=== PATIENT | female | born 1965 | race Caucasian/White ===

== ENCOUNTER 2017-04-12 12:12 | Emergency (ER) | payer OTHER ==
[~2017-04-12] VITALS: Ht 162.6 cm; Wt 130.2 kg
[2017-04-12 12:14] VITALS: TEMP 36.7; Ht 162.6 cm; Wt 130.2 kg
--- NOTE | 2017-04-12 12:56 | EMERGENCY ROOM VISIT NOTE ---
History Report prepared by Raisa: Nisa Squires Under the Supervision of: Dr. Andres Savage M.D. First contact with patient: 12:47 Chief Complaint: ABDOMINAL PAIN Stated Complaint: SEVERE STOMACH PAIN, PAIN ALL OVER Nursing Triage Summary: Pt. reporting abdominal pain and watery diarrhea with vomiting that started three days ago. Also reporting generalized body aches. Repeatedly saying "this hurts so bad" and moaning. Says pain across upper and lower right abdomen. History of Present Illness The patient is a 52 year old female who presents to the Emergency Room with complaints of worsening right sided severe abdominal pain beginning 3 days prior to arrival. The patient states that the pain radiates around to her back. She is experiencing very watery black diarrhea, urinary frequency, nausea, vomiting and a headache, and chills. The patient noted all over body pain. She states that she has taken Aleve for the pain but it did not alleviate it. She notes that she has been very thirsty and is drinking around 15 bottles of water a day. The patient denies pain like this before. She has a history of pancreatitis and cholecystomy. Source of History: patient Onset: 3 days [employer]SEMBL[employer] FINAL Position: abdomen (right sided) Symptom Intensity: severe Timing: worsening Associated Symptoms: + chills, + headache, + nausea, + vomiting, + back pain , + diarrhea Review of Systems All systems have been listed, reviewed, and are negative other than those previously mentioned. Please see Additional Medical History Sheet. Past Medical & Surgical Surgical Problems: (1) Hx of hysterectomy Family History Cancer Heart disease Social History Smoking Status: Never Smoker Alcohol Use: none Drug Use: none Marital Status: Housing Status: lives with family Occupation Status: employed Current/Historical Medications No Active Prescriptions or Reported Meds Allergies Coded Allergies: No Known Allergies (Unverified , 04/12/17) Physical Exam Vital Signs Date Time Temp Pulse Resp B/P (MAP) Pulse Ox O2 Delivery O2 Flow Rate FiO2 04/12/17 14:01 90 15 133/79 91 Room Air 04/12/17 13:14 89 18 110/75 99 Room Air 04/12/17 12:14 36.7 99 18 137/95 97 Room Air Physical Exam GENERAL: Patient awake, alert, oriented x 3. Patient follows commands. Patient is in moderate to severe distress, moaning in pain. Patient does not appear toxic. Patient is adequately hydrated and well-nourished. SKIN: No erythema, pallor, cyanosis or rash HEENT: Normal head, pupils equal, reactive to light and accommodation. Ears normal. Oral cavity and posterior pharynx appear normal. Neck: Without adenopathy, no neck vein distention. LUNGS: Clear to auscultation. No wheezes, no rales, no rhonchi. HEART: No murmurs. No gallops. No rubs ABDOMEN: Obese. Tender to epigastric area. No masses, no rebound, no hepatomegaly or splenomegaly. EXTREMITIES: No signs of trauma. No pedal or pretibial edema. No calf or thigh tenderness. NEUROLOGIC: Cranial nerves II-XII within normal limits. No gross motor sensory function deficits. Medical Decision & Procedures Laboratory Results 04/12/17 12:40 Red Blood Count 5.10, Mean Corpuscular Volume 83.7, Mean Corpuscular Hemoglobin 28.8, Mean Corpuscular Hemoglobin Concent 34.4, Mean Platelet Volume 10.1, Neutrophils (%) (Auto) 84.1, Lymphocytes (%) (Auto) 9.4, Monocytes (%) (Auto) 6.3, Eosinophils (%) (Auto) 0.0, Basophils (%) (Auto) 0.0, Neutrophils # (Auto) 9.12, Lymphocytes # (Auto) 1.02, Monocytes # (Auto) 0.68, Eosinophils # (Auto) 0.00, Basophils # (Auto) 0.00 04/12/17 12:40 Test 04/12/17 12:40 04/12/17 12:45 White Blood Count 10.84 K/uL (4.8-10.8) Red Blood Count 5.10 M/uL (4.2-5.4) Hemoglobin 14.7 g/dL (12.0-16.0) Hematocrit 42.7 % (37-47) Mean Corpuscular Volume 83.7 fL (80-100) Mean Corpuscular Hemoglobin 28.8 pg (25-34) Mean Corpuscular Hemoglobin Concent 34.4 g/dl (32-36) Platelet Count 215 K/uL (130-400) Mean Platelet Volume 10.1 fL (7.4-10.4) Neutrophils (%) (Auto) 84.1 % Lymphocytes (%) (Auto) 9.4 % Monocytes (%) (Auto) 6.3 % Eosinophils (%) (Auto) 0.0 % Basophils (%) (Auto) 0.0 % Neutrophils # (Auto) 9.12 K/uL (1.4-6.5) Lymphocytes # (Auto) 1.02 K/uL (1.2-3.4) Monocytes # (Auto) 0.68 K/uL (0.11-0.59) Eosinophils # (Auto) 0.00 K/uL (0-0.5) Basophils # (Auto) 0.00 K/uL (0-0.2) RDW Standard Deviation 41.1 fL (36.4-46.3) RDW Coefficient of Variation 13.4 % (11.5-14.5) Immature Granulocyte % (Auto) 0.2 % Immature Granulocyte # (Auto) 0.02 K/uL (0.00-0.02) Anion Gap 12.0 mmol/L (3-11) Est Creatinine Clear Calc Drug Dose 100.3 ml/min Estimated GFR () 87.6 Estimated GFR (Non- 75.5 BUN/Creatinine Ratio 15.1 (10-20) Calcium Level 9.3 mg/dl (8.5-10.1) Total Bilirubin 0.6 mg/dl (0.2-1) Aspartate Amino Transf (AST/SGOT) 16 U/L (15-37) Alanine Aminotransferase (ALT/SGPT) 24 U/L (12-78) Alkaline Phosphatase 61 U/L (45-117) Total Protein 7.5 gm/dl (6.4-8.2) Albumin 3.5 gm/dl (3.4-5.0) Globulin 4.0 gm/dl (2.5-4.0) Albumin/Globulin Ratio 0.9 (0.9-2) Lipase 103 U/L (73-393) Urine Color DK YELLOW Urine Appearance CLEAR (CLEAR) Urine pH 5.5 (4.5-7.5) Urine Specific [place] 1.021 (1.000-1.030) Urine Protein TRACE (NEG) Urine Glucose (UA) NEG (NEG) Urine Ketones 1+ (NEG) Urine Occult Blood NEG (NEG) Urine Nitrite NEG (NEG) Urine Bilirubin NEG (NEG) Urine Urobilinogen NEG (NEG) Urine Leukocyte Esterase NEG (NEG) Urine WBC (Auto) 1-5 /hpf (0-5) Urine RBC (Auto) 0-4 /hpf (0-4) Urine Hyaline Casts (Auto) 5-10 /lpf (0-5) Urine Epithelial Cells (Auto) >30 /lpf (0-5) Urine Bacteria (Auto) 1+ (NEG) Laboratory results as stated above per my review. Medications Administered Medications (Trade) Dose Ordered Sig/Maryam Route Start Time Stop Time Status Last Admin Dose Admin Morphine Sulfate (MoRPHine SULFATE INJ) 8 mg Q1H PRN IV 04/12/17 13:00 04/26/17 12:59 04/12/17 13:04 8 MG Ondansetron HCl (Zofran Inj) 4 mg Q1HWA PRN IV 04/12/17 13:00 05/12/17 12:59 04/12/17 13:03 4 MG Sodium Chloride 1,000 ml @ 500 mls/hr Q2H ONCE IV 04/12/17 13:00 04/12/17 14:59 04/12/17 13:04 500 MLS/HR ED Course 1248: Past medical records reviewed. The patient was evaluated in room B9. A complete history and physical examination was performed. 1300: Sodium Chloride 1,000 ml @ 500 mls/hr IV, Zofran Inj 4 mg IV, Morphine Sulfate Inj 8 mg IV. 1451: I checked on the patient. She is feeling much better. She is waiting for CT scan. 1500: The patient is signed out to Dr. Ayala at change of shift. Medical Decision Nurses notes reviewed. Medical history sheet reviewed. Differential diagnosis includes but is not limited to: pancreatitis, peptic/gastric ulcer disease, infectious diarrhea, GI bleed. Medication Reconciliation: I attest that I have personally reviewed the patient' s current medication list. The patient is here with severe abdominal pain which she states she's had for 3 days. She also complains of pain over the rest of her body. The patient was given IV pain medication and fluids. Labs were obtained. CT is pending. Case was signed off to Dr. Ayala at 1500. Impression Primary Impression: Nonspecific abdominal pain Scribe Attestation The scribe's documentation has been prepared under my direction and personally reviewed by me in its entirety. I confirm that the note above accurately reflects all work, treatment, procedures, and medical decision making performed by me. Departure Information Dispostion Still a Patient Prescriptions No Active Prescriptions or Reported Meds Referrals Mendel Swain M.D. (PCP) Patient Instructions My [facility]
[2017-04-12] MEDS ORDERED: ONDANSETRON INJ 2 MG/ML 2 ML VIAL IV PRN (13:00)
[2017-04-12] MEDS ORDERED: MoRPHine SULFATE 10 MG/ML CARP/VIAL IV PRN (13:00)
[2017-04-12] MEDS ORDERED: SODIUM CHLORIDE 0.9% 1000ML 1,000 ML IV ONE (13:00)
[2017-04-12 13:09] LABS: COMPLETE YES; HEMATOCRIT 42.7 % (37-47); IG% 0.2 %; LYMPH % 9.4 %; LYMPH ABS # 1.02 K/uL (1.2-3.4); MEAN CELL VOLUME 83.7 fL (80-100); MEAN CORPUSCULAR HEMOGLOBIN 28.8 pg (25-34); MEAN CORPUSCULAR HGB CONC 34.4 g/dl (32-36); MEAN PLATELET VOLUME 10.1 fL (7.4-10.4); MONO % 6.3 %; NEUT % 84.1 %; PLATELET COUNT 215 K/uL (130-400); WHITE BLOOD COUNT 10.84 K/uL (4.8-10.8)
[2017-04-12 13:11] LABS: URINE APPEARANCE CLEAR (CLEAR); URINE BILIRUBIN NEG (NEG); URINE COLOR DK YELLOW; URINE EPITHELIAL CELL AUTO >30 /lpf (0-5); URINE NITRITE NEG (NEG); URINE PH 5.5 (4.5-7.5); URINE SPECIFIC GRAVITY 1.021 (1.000-1.030); UROBILINOGEN NEG (NEG); ZZUR CULT IF INDIC CLEAN CATCH YES
[2017-04-12 13:15] LABS: MANUAL MICROSCOPIC REQUIRED? NO; REVIEW REQ? NO
[2017-04-12 13:16] LABS: BUN/CREATININE RATIO 15.1 (10-20); CALCIUM 9.3 mg/dl (8.5-10.1); CREATININE 0.88 mg/dl (0.60-1.20); POTASSIUM 3.4 mmol/L (3.5-5.1)
[2017-04-12 13:19] LABS: ALB/GLOB RATIO 0.9 (0.9-2)
[2017-04-12] MEDS ORDERED: OPTIRAY 320 IV PRN (13:30)
[2017-04-12] MEDS ORDERED: SODIUM CHLORIDE 0.9% 1000ML 1,000 ML IV STA (14:55)
--- NOTE | 2017-04-12 15:47 | DIAGNOSTIC IMAGING REPORT ---
ABDOMEN AND PELVIS CT WITH IV AND ORAL CONTRAST CT DOSE: 3.53 mGy.cm HISTORY: Pain abd pain hx of pancreatitis TECHNIQUE: Multiaxial CT images of the abdomen and pelvis were performed following the use of intravenous and oral contrast. COMPARISON STUDY: 11/28/2014. FINDINGS: lung bases are clear. Prior cholecystectomy changes are present. Liver spleen and pancreas are unremarkable. Several left renal parapelvic cysts unchanged. Mild atrophy right kidney is present also unchanged. No evidence for obstructive change. Bowel pattern is considered nonobstructive throughout. There is no evidence for abnormal mass or collection. Bladder is midline. There are no contained calcifications. IMPRESSION: No acute process. No change from the prior exam. Prior cholecystectomy and hysterectomy. Electronically signed by: Arik العلي M.D. 04/12/2017 3:46 PM Dictated Date/Time: 04/12/2017 3:43 PM
[2017-04-12] MEDS ORDERED: KETOROLAC TROMETHAMINE 30 MG/ML VIAL IV STA (15:54)
[2017-04-12] MEDS ORDERED: OXYC-57 PO (16:08)
[2017-04-12] MEDS ORDERED: ONDA4TAB10 SL (16:08)
[2017-04-12] MEDS ORDERED: ONDANSETRON HOME PACK 4MG OD TAB PO ONE (16:15)
[2017-04-12] MEDS ORDERED: PERCOCET HOME PACK PO ONE (16:15)
--- NOTE | 2017-04-12 16:17 | EMERGENCY ROOM VISIT NOTE ---
ED Visit Note First contact with patient: 16:03 This is a 53-year-old female who presents emergency department complaining of diffuse abdominal pain. History and physical verified by me. On my abdominal examination the patient has no pain she is complaining of headache therefore she was given Toradol emergency department. The patient is awaiting CAT scan. I received this patient in signout from Dr. Savage. ABDOMEN AND PELVIS CT WITH IV AND ORAL CONTRAST CT DOSE: 2023.53 mGy.cm HISTORY: Pain abd pain hx of pancreatitis TECHNIQUE: Multiaxial CT images of the abdomen and pelvis were performed following the use of intravenous and oral contrast. COMPARISON STUDY: 11/28/2014. FINDINGS: lung bases are clear. Prior cholecystectomy changes are present. Liver spleen and pancreas are unremarkable. Several left renal parapelvic cysts unchanged. Mild atrophy right kidney is present also unchanged. No evidence for obstructive change. Bowel pattern is considered nonobstructive throughout. There is no evidence for abnormal mass or collection. Bladder is midline. There are no contained calcifications. IMPRESSION: No acute process. No change from the prior exam. Prior cholecystectomy and hysterectomy. Electronically signed by: Arik العلي M.D. 04/12/2017 3:46 PM Dictated Date/Time: 04/12/2017 3:43 PM I again reexamined this patient she has a soft nonsurgical abdomen that is nontender. She is going to attempt to try and give a stool sample. I do believe she is well enough to be discharged home for follow-up with her primary care physician. Patient was in agreement with the treatment plan. Problem List Surgical Problems: (1) Hx of hysterectomy Status: Resolved Current/Historical Medications Scheduled Ondasetron Odt (Zofran Odt), 4 MG SL Q6H Scheduled PRN Oxycodone/Acetaminophen 5MG/325MG (Percocet 5MG/325MG), 1-2 TABLETS PO Q6 PRN for Pain Allergies Coded Allergies: No Known Allergies (Unverified , 04/12/17) Vital Signs Date Time Temp Pulse Resp B/P (MAP) Pulse Ox O2 Delivery O2 Flow Rate FiO2 04/12/17 15:10 96 20 118/86 92 Room Air 04/12/17 14:01 90 15 133/79 91 Room Air 04/12/17 13:14 89 18 110/75 99 Room Air 04/12/17 12:14 36.7 99 18 137/95 97 Room Air Laboratory Results 04/12/17 12:40 Red Blood Count 5.10, Mean Corpuscular Volume 83.7, Mean Corpuscular Hemoglobin 28.8, Mean Corpuscular Hemoglobin Concent 34.4, Mean Platelet Volume 10.1, Neutrophils (%) (Auto) 84.1, Lymphocytes (%) (Auto) 9.4, Monocytes (%) (Auto) 6.3, Eosinophils (%) (Auto) 0.0, Basophils (%) (Auto) 0.0, Neutrophils # (Auto) 9.12, Lymphocytes # (Auto) 1.02, Monocytes # (Auto) 0.68, Eosinophils # (Auto) 0.00, Basophils # (Auto) 0.00 04/12/17 12:40 Test 04/12/17 12:40 04/12/17 12:45 White Blood Count 10.84 K/uL (4.8-10.8) Red Blood Count 5.10 M/uL (4.2-5.4) Hemoglobin 14.7 g/dL (12.0-16.0) Hematocrit 42.7 % (37-47) Mean Corpuscular Volume 83.7 fL (80-100) Mean Corpuscular Hemoglobin 28.8 pg (25-34) Mean Corpuscular Hemoglobin Concent 34.4 g/dl (32-36) Platelet Count 215 K/uL (130-400) Mean Platelet Volume 10.1 fL (7.4-10.4) Neutrophils (%) (Auto) 84.1 % Lymphocytes (%) (Auto) 9.4 % Monocytes (%) (Auto) 6.3 % Eosinophils (%) (Auto) 0.0 % Basophils (%) (Auto) 0.0 % Neutrophils # (Auto) 9.12 K/uL (1.4-6.5) Lymphocytes # (Auto) 1.02 K/uL (1.2-3.4) Monocytes # (Auto) 0.68 K/uL (0.11-0.59) Eosinophils # (Auto) 0.00 K/uL (0-0.5) Basophils # (Auto) 0.00 K/uL (0-0.2) RDW Standard Deviation 41.1 fL (36.4-46.3) RDW Coefficient of Variation 13.4 % (11.5-14.5) Immature Granulocyte % (Auto) 0.2 % Immature Granulocyte # (Auto) 0.02 K/uL (0.00-0.02) Anion Gap 12.0 mmol/L (3-11) Est Creatinine Clear Calc Drug Dose 100.3 ml/min Estimated GFR () 87.6 Estimated GFR (Non- 75.5 BUN/Creatinine Ratio 15.1 (10-20) Calcium Level 9.3 mg/dl (8.5-10.1) Total Bilirubin 0.6 mg/dl (0.2-1) Aspartate Amino Transf (AST/SGOT) 16 U/L (15-37) Alanine Aminotransferase (ALT/SGPT) 24 U/L (12-78) Alkaline Phosphatase 61 U/L (45-117) Total Protein 7.5 gm/dl (6.4-8.2) Albumin 3.5 gm/dl (3.4-5.0) Globulin 4.0 gm/dl (2.5-4.0) Albumin/Globulin Ratio 0.9 (0.9-2) Lipase 103 U/L (73-393) Urine Color DK YELLOW Urine Appearance CLEAR (CLEAR) Urine pH 5.5 (4.5-7.5) Urine Specific [place] 1.021 (1.000-1.030) Urine Protein TRACE (NEG) Urine Glucose (UA) NEG (NEG) Urine Ketones 1+ (NEG) Urine Occult Blood NEG (NEG) Urine Nitrite NEG (NEG) Urine Bilirubin NEG (NEG) Urine Urobilinogen NEG (NEG) Urine Leukocyte Esterase NEG (NEG) Urine WBC (Auto) 1-5 /hpf (0-5) Urine RBC (Auto) 0-4 /hpf (0-4) Urine Hyaline Casts (Auto) 5-10 /lpf (0-5) Urine Epithelial Cells (Auto) >30 /lpf (0-5) Urine Bacteria (Auto) 1+ (NEG) Medications Administered Medications (Trade) Dose Ordered Sig/Maryam Route Start Time Stop Time Status Last Admin Dose Admin Morphine Sulfate (MoRPHine SULFATE INJ) 8 mg Q1H PRN IV 04/12/17 13:00 04/26/17 12:59 04/12/17 13:04 8 MG Ondansetron HCl (Zofran Inj) 4 mg Q1HWA PRN IV 04/12/17 13:00 05/12/17 12:59 04/12/17 13:03 4 MG Sodium Chloride 1,000 ml @ 500 mls/hr Q2H ONCE IV 04/12/17 13:00 04/12/17 14:59 DC 04/12/17 13:04 500 MLS/HR Sodium Chloride 1,000 ml @ 500 mls/hr Q2H STAT IV 04/12/17 14:55 04/12/17 16:54 04/12/17 14:55 500 MLS/HR Ketorolac Tromethamine (Toradol Inj) 30 mg NOW STAT IV 04/12/17 15:54 04/12/17 15:55 DC 04/12/17 16:02 30 MG Departure Information Impression Primary Impression: Nonspecific abdominal pain Dispostion Home / Self-Care Condition GOOD Prescriptions Ondasetron Odt (ZOFRAN ODT) 4 Mg Tab 4 MG SL Q6H for Nausea, #6 TAB Prov: Los Ayala MD 04/12/17 Oxycodone/Acetaminophen 5MG/325MG (PERCOCET 5MG/325MG) Tab 1-2 TABLETS PO Q6 Y for Pain, #14 TAB PAIN Prov: Los Ayala MD 04/12/17 Referrals Mendel Swain M.D. (PCP) Forms Call Back Authorization, HOME CARE DOCUMENTATION FORM, School Instructions, Work Instructions, IMPORTANT VISIT INFORMATION Patient Instructions My [facility], ED Abdominal Pain Unkn Cause, ED Diet Clear Liquid Additional Instructions Clear liquid diet next 48 hours Take 600 mg Ibuprofen every 6 hours Take Percocet for breakthrough pain Culture results are usually available in approx 48 hours You have been examined and treated today on an emergency basis only. This is not a substitute for, or an effort to provide, complete comprehensive medical care. It is impossible to recognize and treat all injuries or illnesses in a single emergency department visit. It is therefore important that you follow up closely with Dr Swain. Call as soon as possible for an appointment. Thank you for your time and consideration. I look forward to speaking with you again soon. Please don't hesitate to call us if you have any questions.
[2017-04-12 17:03] VITALS: BP 134/65; PULSE 93; O2SAT 98
== END 2017-04-12 17:06 | disposition home or self-care (01) ==
LOC: C.EDB 12:13
DX: R10.9 Unspecified abdominal pain (principal); R19.7 Diarrhea, unspecified; Z90.49 Acquired absence of other specified parts of digestive tract; Z90.710 Acquired absence of both cervix and uterus

== ENCOUNTER 2017-06-28 17:50 | Emergency (ER) | payer OTHER ==
[~2017-06-28] VITALS: Ht 165.1 cm; Wt 131.7 kg
[~2017-06-28 17:50] MED LIST: ONDA4TAB10 SL; OXYC-57 PO
[2017-06-28 18:01] VITALS: TEMP 36.8; Ht 165.1 cm; Wt 131.7 kg
--- NOTE | 2017-06-28 18:37 | DIAGNOSTIC IMAGING REPORT ---
RIGHT HAND 2 VIEWS CLINICAL HISTORY: struck by a donkey Right trauma. Pain. COMPARISON: None. DISCUSSION: Generalized degenerative change. No acute bony abnormality. There is no evidence for soft tissue swelling. IMPRESSION: Degenerative change. No acute bony abnormality. The above report was generated using voice recognition software. It may contain grammatical, syntax or spelling errors. Electronically signed by: Arik العلي M.D. 06/28/2017 6:36 PM Dictated Date/Time: 06/28/2017 6:34 PM
[2017-06-28] MEDS ORDERED: OXYC1TAB3 PO (19:05)
[2017-06-28] MEDS ORDERED: OXYCODONE IR HOME PACK PO ONE (19:15)
[2017-06-28 19:28] VITALS: BP 130/91; PULSE 88; O2SAT 97
--- NOTE | 2017-06-29 01:32 | EMERGENCY ROOM VISIT NOTE ---
History First contact with patient: 18:20 Chief Complaint: HAND PAIN/INJURY Stated Complaint: KICKED IN RT HAND BY DONKEY History of Present Illness The patient is a 52 year old female who presents to the Emergency Room with complaints of injuries to her right hand and wrist after being kicked by a donkey approximately 2 hours prior to arrival. The patient reports a few cuts on her hand. Tetanus immunization is up-to-date. The patient is left-hand dominant, and rates her discomfort an 8 out of 10. Review of Systems 10 system review was performed and was negative except for pertinent positives and negatives as indicated in history of present illness Past Medical/Surgical History Surgical Problems: (1) Hx of hysterectomy Family History Cancer Heart disease Social History Smoking Status: Never Smoker Alcohol Use: none Drug Use: none Marital Status: Housing Status: lives with family Occupation Status: employed Current/Historical Medications Scheduled PRN Oxycodone Ir (Roxicodone Ir), 1-2 TAB PO Q4H PRN for Pain Physical Exam Vital Signs Date Time Temp Pulse Resp B/P (MAP) Pulse Ox O2 Delivery O2 Flow Rate FiO2 06/28/17 19:28 88 18 130/91 97 06/28/17 18:01 36.8 92 18 151/99 96 Room Air Physical Exam CONSTITUTIONAL: Healthy and well nourished. Alert and oriented X 3 with positive affect. HEENT: Normocephalic, atraumatic. Pupils equal, round and reactive. NECK: Full active range of motion without discomfort. MUSCULOSKELETAL: Examination of the right hand shows diffuse edema, and ecchymosis, primarily of the middle finger. The patient is able to flex and extend her fingers, however with discomfort. Examination of the wrist shows a dramatically positive anatomic snuffbox tenderness. Capillary refill of the fingers is less than 2 seconds. INTEGUMENTARY: No rash or other significant dermatologic conditions noted. NEUROLOGIC: Right hand and fingers are sensory intact. Medical Decision & Procedures ER Provider Diagnostic Interpretation: My interpretation of right hand x-rays does not show any obvious radiopaque foreign bodies, fractures or dislocations. Radiologist report is as follows: RIGHT HAND 2 VIEWS CLINICAL HISTORY: struck by a donkey Right trauma. Pain. COMPARISON: None. DISCUSSION: Generalized degenerative change. No acute bony abnormality. There is no evidence for soft tissue swelling. IMPRESSION: Degenerative change. No acute bony abnormality. Medications Administered Medications (Trade) Dose Ordered Sig/Maryam Route Start Time Stop Time Status Last Admin Dose Admin Oxycodone HCl (Roxicodone Immediate Rel 5MG Home Pack) 1 homepack UD ONCE PO 06/28/17 19:15 06/28/17 19:16 DC 06/28/17 19:23 1 HOMEPACK ED Course Patient history and physical exam were performed. Nurse's notes were reviewed. Vital signs were reviewed, showing an elevated blood pressure 151/99. The patient initially refused any analgesics. X-rays of the right hand were normal. However, it is noted that the patient does have a positive anatomic snuffbox tenderness. An Ortho-Glass thumb spica splint was applied. Neurovascular check after splint placement was normal. The patient was encouraged to alternate ibuprofen and Tylenol for baseline pain relief. The patient was dispensed a home pack and prescription for OxyIR 5 mg as needed for worse pain. She was instructed to follow-up with [facility] for further reevaluation and management. The patient was happy with plan of care, voiced understanding of all discharge instructions, and rated her pain a 5 out of 10 at the conclusion of my exam. It is noted that the patient's blood pressure was initially elevated in triage. The pressure at the time of discharge was lower. The patient was encouraged to follow-up with her PCP for blood pressure recheck. Medical Decision [place] Drug Monitoring Program Search Results: patient reviewed within database, no issues identified Medication Reconcilliation Current Medication List: was personally reviewed by me Blood Pressure Screening Patient's blood pressure: Elevated blood pressure Blood pressure disposition: Elevated BP felt to be situational Impression Primary Impression: Other specified injuries of right wrist, hand and finger(s), initial encounter Additional Impression: Elevated blood pressure reading Departure Information Prescriptions Oxycodone Ir (Roxicodone Ir) 5 Mg Tab 1-2 TAB PO Q4H Y for Pain, #15 TAB For Initial Treatment Prov: Placido Pierce PA 06/28/17 Referrals Mendel Swain M.D. (PCP) Patient Instructions My [facility] Health Problem Qualifiers
== END 2017-06-28 19:30 | disposition home or self-care (01) ==
LOC: C.EDB 17:51 → C.EDD 19:30
DX: S69.91XA Unspecified injury of right wrist, hand and finger(s), initial encounter (principal); W55.89XA Other contact with other mammals, initial encounter; Z90.49 Acquired absence of other specified parts of digestive tract; Z80.9 Family history of malignant neoplasm, unspecified; Z82.49 Family history of ischemic heart disease and other diseases of the circulatory system

== ENCOUNTER 2019-11-23 08:09 | Observation (INO) ==
[2019-11-23] MEDS ORDERED: MoRPHine SULFATE 4 MG/ML 1 ML CARP\\VIAL IV STA (08:38)
[2019-11-23] MEDS ORDERED: cefTRIAXone SODIUM 2,000 MG/70 ML BAG IV STA (08:38)
[2019-11-23] MEDS ORDERED: ONDANSETRON INJ 2 MG/ML 2 ML VIAL IV STA (08:38)
--- NOTE | 2019-11-23 08:41 | Emergency Department Note ---
History of Present Illness General Chief complaint: Leg Injury/Pain Time Seen by Provider: 11/23/19 08:31 History of Present Illness Maximum Pain Intensity: 10 This is a 54-year-old female that presents to the emergency department via private vehicle accompanied by male with complaints of "leg pain/rash". Patient has history of cellulitis and recently diagnosed with the flu. She states that last night she began with some redness to the right lower leg. She notes that this is identical to previous cellulitic infections that she has had. She denies any fever but notes now today the redness has significantly progressed, and is quite painful. She describes it as a burning sensation. Pain is a 10/10. No nausea or vomiting. She states that she was just here a few days ago and diagnosed with influenza. Home Medications Home Medications Medication Instructions Recorded Confirmed Type prochlorperazine maleate 5 mg PO Q8H PRN #14 tab 11/21/19 11/23/19 Rx [Compazine] Allergies Allergy/AdvReac Type Severity Reaction Status Date / Time citalopram AdvReac Intermediate Nausea Verified 11/23/19 08:59 Past Med/Surg History Medical History History of depression History of migraine History of pancreatitis Gallstone Meningioma 12x5mm L retrocerebellar; follows neuro Morbid obesity Surgical History History of delivery (Resolved) History of cholecystectomy (Resolved) History of ERCP History of wisdom tooth extraction (Resolved) Hx of hysterectomy (Resolved) Family History Father Cancer Bladder cancer Mother Diabetes Aunt , 40s Stroke Social History Preferred Language: Haitian Communication Ability: Effective Truckman Required: No Beliefs That Will Affect Care: None Current Living Situation: Significant Other Current Living Situation Comment: and 2 children current occupational status: employed current occupation: [employer] Other Information That Helps Us Care for You: No Feels Safe at Home: Yes Safety Concerns: Feels Safe At This Time Smoking Status: Never smoker Do You Dip or Chew Tobacco: No ; Second Hand Exposure: No ; Tobacco Cessation Education Requested by Patient: No Hx Alcohol Use: No Hx Substance Use: No Review of Systems A total of 10 systems reviewed and were otherwise negative Physical Exam Vital Signs Vital Signs - 24 hr 11/23/19 08:24 11/23/19 10:10 Temperature 37.5 C 37.7 C H Temperature Source Oral Oral Pulse Rate 108 H Pulse Rate [Apical] 93 H Pulse Rhythm [Apical] Regular Respiratory Rate 20 20 Respiratory Effort / Characteristics Non-Labored Respiratory Depth Normal Blood Pressure 114/69 Blood Pressure [Left Arm] 111/77 Blood Pressure Mean 84 Blood Pressure Mean [Left Arm] 88 Blood Pressure Position [Left Arm] Lying Pulse Oximetry 95 98 Oxygen Delivery Method Room Air Room Air Sepsis Recent Fever Within 48 Hours No Sepsis New/Unexplained Change in Mental Status Yes Sepsis Action Taken by Nursing No Action Required VITAL SIGNS - Vital signs and nursing notes were reviewed. Mildly tachycardic, otherwise stable. GENERAL -54-year-old female appearing her stated age who is in no acute distress. Communicates well with provider and answers questions appropriately. SKIN -the patient's right lower extremity, from the mid thompson distally to the ankle with a circumferential erythematous region consistent without a cellulitis. There is a small break in the integument on the posterior aspect without drainage. No fluctuance. No palpable cord. No evidence of DVT on exam. HEAD - NC/AT. EYES - Sclera anicteric.. EARS - No deformities of external structures noted on gross examination bilaterally. NOSE - Midline and without cyanosis. No epistaxis or purulent drainage noted. MOUTH/OROPHARYNX - Without perioral cyanosis. LUNGS - Chest wall symmetric without accessory muscle use, intercostals retractions, or central cyanosis. Normal vesicular breath sounds CTA B/L. No wheezes, rales, or rhonchi appreciated. CARDIAC - RRR with S1/S2. No murmur, rubs, or gallops appreciated. EXTREMITIES - No clubbing or peripheral cyanosis. No pretibial edema present. +5/5 strength noted in UE/LE bilaterally. NEUROLOGIC - Cranial nerves II through XII grossly intact. Sensory intact to li ght touch throughout. PSYCH - A&O, and cooperates fully with examiner. Pt is very pleasant and inter acts well with examiner. Course Administered Medications Potassium Chloride/Sodium Chloride (Normal Saline W/20 Meq Kcl) 20 meq in 1,000 mls @ 125 mls/hr IV .Q8H ADELITA Stop: 12/23/19 11:44 Last Admin: 11/23/19 11:45 Dose: 125 mls/hr Documented by: [id number] Famotidine 20 mg/ Syringe 5 mls @ 2.5 mls/min IV BID ADELITA Stop: 11/24/19 21:01 Last Admin: 11/23/19 11:45 Dose: 2.5 mls/min Documented by: [id number] Morphine Sulfate (Morphine Sulfate) 4 mg IV Q4H PRN PRN Reason: Pain Stop: 12/07/19 11:12 Last Admin: 11/23/19 11:25 Dose: 4 mg Documented by: [id number] Discontinued Medications Ceftriaxone Sodium (Rocephin) 2,000 mg in 70 mls @ 140 mls/hr IV NOW STA Stop: 11/23/19 09:07 Last Infusion: 11/23/19 10:49 Dose: 0 mls/hr Documented by: [id number] Admin: 11/23/19 10:19 Dose: 140 mls/hr Documented by: [id number] Sodium Chloride (Nss 1000ml) 1,000 mls @ 999 mls/hr IV .Q1H1M ADELITA Stop: 11/23/19 11:45 Last Infusion: 11/23/19 11:50 Dose: 0 mls/hr Documented by: [id number] Admin: 11/23/19 10:35 Dose: 999 mls/hr Documented by: [id number] Influenza Virus Vaccine Quadrival (Flucelvax Quad Vaccine) 0.5 ml IM .ONCE ONE Stop: 11/23/19 10:35 Last Admin: 11/23/19 11:49 Dose: Not Given Documented by: [id number] Morphine Sulfate (Morphine Sulfate) 4 mg IV NOW STA Stop: 11/23/19 08:39 Last Admin: 11/23/19 10:20 Dose: 4 mg Documented by: [id number] Ondansetron HCl (Zofran) 4 mg IV NOW STA Stop: 11/23/19 08:39 Last Admin: 11/23/19 10:20 Dose: 4 mg Documented by: [id number] Medical Decision Making Laboratory Data Result diagrams: 11/23/19 09:23 11/23/19 09:23 Lab Results 11/23/19 11/23/19 11/23/19 Range/Units 09:23 09:23 09:30 WBC 7.54 (4.8-10.8) K/uL RBC 4.89 (4.2-5.4) M/uL Hgb 13.7 (12.0-16.0) g/dL Hct 42.2 (37-47) % MCV 86.3 (80-100) fL MCH 28.0 (25-34) pg MCHC 32.5 (32-36) g/dL RDW Std Deviation 42.1 (36.4-46.3) fL RDW Coeff of Asim 13.3 (11.5-14.5) % Plt Count 154 (130-400) K/uL MPV 9.9 (7.4-10.4) fL Immature Gran % (Auto) 0.1 % Neut % (Auto) 79.9 % Lymph % (Auto) 13.9 % Cial[place] % (Auto) 6.1 % Eos % (Auto) 0.0 % Baso % (Auto) 0.0 % Immature Gran # (Auto) 0.01 (0.00-0.02) K/uL Neut # (Auto) 6.02 (1.4-6.5) K/uL Lymph # (Auto) 1.05 L (1.2-3.4) K/uL [place] # (Auto) 0.46 (0.11-0.59) K/uL Eos # (Auto) 0.00 (0-0.5) K/uL Baso # (Auto) 0.00 (0-0.2) K/uL Sodium 134 L (136-145) mmol/L Potassium 3.2 L (3.5-5.1) mmol/L Chloride 99 (98-107) mmol/L Carbon Dioxide 29 (21-32) mmol/L Anion Gap 6.0 (3-11) BUN 11 (7-18) mg/dl Creatinine 0.98 (0.6-1.2) mg/dl Est Cr Clr Drug Dosing 90.4 ml/min Est GFR ( Amer) 75.8 Est GFR (Non-Af Amer) 65.4 BUN/Creatinine Ratio 11.2 (10-20) Glucose 125 H (70-99) mg/dl Lactate 1.6 (0.4-2.0) mmol/L Calcium 9.1 (8.5-10.1) mg/dl Total Bilirubin 0.3 (0.2-1) mg/dl AST 35 (15-37) U/L ALT 65 (12-78) U/L Alkaline Phosphatase 51 (45-117) U/L Total Protein 8.0 (6.4-8.2) gm/dl Albumin 3.4 (3.4-5.0) gm/dl Globulin 4.6 H (2.5-4.0) gm/dl Albumin/Globulin Ratio 0.7 L (0.9-2) MDM Narrative Patient was seen and evaluated as above in room a 10. Review was performed of nursing notes and vital signs. After obtaining a thorough history and physical examination the above work up was performed. She presents to us today with what appears to be a quite rapidly progressing cellulitis to the lower extremity. Patient does have a small break in the integument on the posterior aspect of the calf likely the source of the infection. Labs were drawn. Blood cultures were obtained. There is no leukocytosis or anemia. Mild hypokalemia. Lactic acid normal. Cultures pending. Given the rapid onset and progression of the suspected cellulitis I do believe that further evaluation and management in the inpatient setting is warranted. Patient agreed. She was recently diagnosed with influenza a few days ago. She was given 2 g of IV Rocephin. Please refer to further documentation regarding her stay. GCS: 15 In the evaluation and treatment of this patient the following differential diagnoses were entertained: Cellulitis, DVT, dermatitis, eczema, SJS, shingles, viral exanthem, among others. Impression & Plan Cellulitis of right lower extremity Discharge Plan Visit Data *Final* Discharge Date/Time: 11/23/19 10:59 Chief Complaint: Leg Injury/Pain ED Provider: Tomás Muñoz ED Midlevel Provider: Volodymyr De Santiago Discharge Problem: Cellulitis of right lower extremity Patient Disposition: Admitted As Inpatient Condition: Good Discharge Instructions Interventions: ED Discharge Assessment Last Done: 11/23/19 10:59
[2019-11-23 09:40] LABS: Hematocrit (blood only) 42.2 % (37-47); Hemoglobin 13.7 g/dL (12.0-16.0); Immature Granulocytes # (auto) 0.01 K/uL (0.00-0.02); Immature Granulocytes % (auto) 0.1 %; Lymphocytes # (auto) 1.05 K/uL (1.2-3.4); Lymphocytes % (auto) 13.9 %; Mean Corpuscular Hgb Conc 32.5 g/dL (32-36); Mean Corpuscular Volume 86.3 fL (80-100); Mean Platelet Volume 9.9 fL (7.4-10.4); Monocytes # (auto) 0.46 K/uL (0.11-0.59); Monocytes % (auto) 6.1 %; Neutrophils # (auto) 6.02 K/uL (1.4-6.5); Neutrophils % (auto) 79.9 %; Platelet Count 154 K/uL (130-400); RDW Coefficient of Variation 13.3 % (11.5-14.5); RDW Standard Deviation 42.1 fL (36.4-46.3); Red Blood Count 4.89 M/uL (4.2-5.4); White Blood Count 7.54 K/uL (4.8-10.8)
[2019-11-23 09:59] LABS: Albumin Level 3.4 gm/dl (3.4-5.0); BUN Creatinine Ratio 11.2 (10-20); Calcium 9.1 mg/dl (8.5-10.1); Creatinine Clr Calc Pharmacy 90.4 ml/min; Est GFR (African American) 75.8; Est GFR (Non-African American) 65.4; Potassium 3.2 mmol/L (3.5-5.1)
[2019-11-23 10:07] LABS: Albumin Globulin Ratio 0.7 (0.9-2); Bilirubin,Total 0.3 mg/dl (0.2-1); Globulin 4.6 gm/dl (2.5-4.0)
[2019-11-23] MEDS ORDERED: INFLUENZA ADMINISTRATION CHARGE ONE (10:34)
[2019-11-23] MEDS ORDERED: INFLUENZA VIRUS QUAD VACCINE 0.5 ML SYR IM ONE (10:34)
[2019-11-23] MEDS ORDERED: SODIUM CHLORIDE 0.9% 1000ML 1,000 ML IV SCH (10:45)
--- NOTE | 2019-11-23 11:06 | History & Physical Report ---
Date of Service November 23, 2019 Assessment & Plan (1) Cellulitis of right lower extremity: Circumferential well-demarcated right lower extremity cellulitis. Patient does not meet SIRS or sepsis criteria based on current CMS guidelines. Admit to medical Continue IV antibiotics with Rocephin, add vancomycin IV morphine 4mg every 4 prn pain Monitor area of erythema Blood cultures pending Treat fever with APAP IVF due to poor p.o. intake Encourage ambulation (2) Influenza: Positive influenza B on 11/21/2019 Symptoms improving Continue supportive care Precautions (3) Hypokalemia: K3.2, likely in setting of GI loss due to emesis replace potassium and IV fluid until GI upset resolved Patient does not feel she is able to take oral at this time (4) Dehydration: Due to poor p.o. intake from influenza B and cellulitis IVF +20 M EQ KCl at 125 cc/h, reevaluate need to continue in a.m. (5) Acid reflux: Patient complains of multiple episodes of emesis, "just stomach acid." Placed on Pepcid IV 20 mg twice daily for 48 hours and reevaluate, switch to oral when able (6) Morbid obesity: Encourage lifestyle and dietary modifications Encourage weight loss (7) DVT prophylaxis: Lovenox 40 mg SQ q12h Disposition: admit to med/surg, encourage ambulation with nursing staff qshift Follow up: PCP Dr. Swain upon discharge Patient was seen and examined in collaboration with Dr. Medrano, please see addendum History of Present Illness Chief Complaint: RLE cellulitis x 1 day; Influenza B + x 3 days. Primary Care Provider: Mendel Swain MD This is a 54 yr old F who has a significant PMH of morbid obesity, Meningioma ( 12 x 5mm retrocerebellar), migraine, hx of depression who presents to ED secondary to right lower extremity cellulitis x1 day. Daughter noticed patient leg became very red last evening. When she looked down she knew it was "cellulitis."She has prior history of left lower extremity cellulitis many years ago that required hospitalization for IV antibiotics at [facility]. Redness was noted last evening around 5 PM. outlined area of redness and by the time she woke up this morning it started to extend. Last evening she felt chills, sweats and increasingly worse pain and mobility. She denies any documented fever, lightheadedness, dizziness; however she has been experiencing nausea and vomiting. She did have a scab on her posterior calf which is felt to be source of cellulitis. 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 Of significance patient was diagnosed with influenza B on 11/20 in which her symptoms started 11 days prior to that. The symptoms included sinus congestion, rhinorrhea, hoarseness, productive cough with clear sputum, myalgias and profound fatigue. Symptoms persisted and continued to worsen therefore she was seen in ED on 11/20 and diagnosed with influenza B, treated conservatively given duration. She currently denies any chest pain, shortness of breath, wheezing, TORREZ, abdominal pain, dysuria, increased urgency or frequency with urination, change in bowel habits. Her appetite has otherwise been poor for the past 2 weeks and has been having episodes of vomiting daily, "it is just acid." Overall poor p.o. intake. She does not take any medications and denies any drug allergies. She did have a fall on the ice approximately 2 to 3 weeks ago with no known injuries. In ED patient elevated temp 37.7, heart rate 93, BP 135/67 and saturating well on room air. WBC 7.54, H&H 13.7 and 42.2, platelet 154, sodium 134, K3.2, BUN 11, creatinine 0.98, glucose 125, lactate 1.6. Blood cultures were drawn and pending. In ED she received 2 g IV Rocephin, IV fluid, IV Zofran and IV morphine. Allergies Allergy/AdvReac Type Severity Reaction Status Date / Time citalopram AdvReac Intermediate Nausea Verified 11/23/19 08:59 Home Medications Home Medications Medication Instructions Recorded Confirmed Type prochlorperazine maleate 5 mg PO Q8H PRN #14 tab 11/21/19 11/23/19 Rx [Compazine] Past Med/Surg History Medical History History of depression History of migraine History of pancreatitis Gallstone Meningioma 12x5mm L retrocerebellar; follows neuro Morbid obesity Surgical History History of delivery (Resolved) History of cholecystectomy (Resolved) History of ERCP History of wisdom tooth extraction (Resolved) Hx of hysterectomy (Resolved) Family History Father Cancer Bladder cancer Mother Diabetes Aunt , 40s Stroke Social History Preferred Language: Lithuanian Communication Ability: Effective 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 Beliefs That Will Affect Care: None Current Living Situation: Significant Other Current Living Situation Comment: and 2 children current occupational status: employed current occupation: [employer] Other Information That Helps Us Care for You: No Feels Safe at Home: Yes Safety Concerns: Feels Safe At This Time Smoking Status: Never smoker Do You Dip or Chew Tobacco: No ; Second Hand Exposure: No ; Tobacco Cessation Education Requested by Patient: No Hx Alcohol Use: No Hx Substance Use: No Review of Systems Review of Systems: All systems reviewed & are unremarkable except as noted in HPI & below Physical Exam Physical Exam: Constitutional: WD/WN, morbidly obese, female, lying in bed, vitals as above, NAD, pleasant, conversing easily Head: Normocephalic, Atraumatic Eyes: PERRL, conjunctivae normal, anicteric sclerae ENMT: external ear and nose normal, oropharynx with dry mucous membranes Neck: trachea midline, no thyromegaly normal visual inspection Respiratory: normal respiratory effort, lungs clear to auscultation, no wheeze, rales, rhonchi. Normal insp/exp effort, no accessory muscle use Cardiovascular: RRR, no murmur, no edema Vessels: no JVD or carotid bruit Chest: normal inspection of chest Abdomen: Obese abdomen, normal bowel sounds, soft, nontender, no hepatosplenomegaly Musculoskeletal: no cyanosis or clubbing, MSK strength 5/5 all extremities, RLE unable to be tested due to pain Skin: Right lower extremity cellulitis inferior to knee joint and superior to ankle joint, circumferential of calf, 16 cm x 8 cm but irregular, nonpurulent, on posterior calf there is evidence of scab or puncture site, warm and dry normal turgor Neurologic: PERRL, EOMI, accommodation nl, no face palsy, no dysarthria CN's II-XI intact bilaterally and moves all extremities Psychiatric: A+Ox3, euthymic affect Lymphatic: no cervical or axillary lymphadenopathy : deferred Results & Data Vital Signs (Past 12 Hours) Vital Signs Temp Pulse Pulse Resp BP BP Pulse Ox 11/23/19 10:59 93 H 20 135/67 92 11/23/19 10:10 37.7 C H 93 H 20 111/77 98 11/23/19 08:24 37.5 C 108 H 20 114/69 95 Laboratory Results Short CBC 11/23/19 Range/Units 09:23 WBC 7.54 (4.8-10.8) K/uL Hgb 13.7 (12.0-16.0) g/dL Hct 42.2 (37-47) % Plt Count 154 (130-400) K/uL BMP 11/23/19 09:23 Sodium 134 L Potassium 3.2 L Chloride 99 Carbon Dioxide 29 BUN 11 Creatinine 0.98 Glucose 125 H Calcium 9.1 Liver Function 11/23/19 Range/Units 09:23 Total Bilirubin 0.3 (0.2-1) mg/dl AST 35 (15-37) U/L ALT 65 (12-78) U/L Alkaline Phosphatase 51 (45-117) U/L Albumin 3.4 (3.4-5.0) gm/dl Medications Administered Discontinued Medications Ceftriaxone Sodium (Rocephin) 2,000 mg in 70 mls @ 140 mls/hr IV NOW STA Stop: 11/23/19 09:07 Last Infusion: 11/23/19 10:49 Dose: 0 mls/hr Documented by: [id number] Admin: 11/23/19 10:19 Dose: 140 mls/hr Documented by: [id number] Sodium Chloride (Nss 1000ml) 1,000 mls @ 999 mls/hr IV .Q1H1M ADELITA Stop: 11/23/19 11:45 Last Admin: 11/23/19 10:35 Dose: 999 mls/hr Documented by: [id number] Morphine Sulfate (Morphine Sulfate) 4 mg IV NOW STA Stop: 11/23/19 08:39 Last Admin: 11/23/19 10:20 Dose: 4 mg Documented by: [id number] Ondansetron HCl (Zofran) 4 mg IV NOW STA Stop: 11/23/19 08:39 Last Admin: 11/23/19 10:20 Dose: 4 mg Documented by: [id number] Code Status & VTE Plan Code Status Full Code VTE Prophylaxis Plan VTE Prophylaxis will be ordered: Yes Supervising Physician Co-Signing Physician Notes HISTORY: Record reviewed. Patient interviewed and examined in ED. Care coordinated with Gema Hyde PA-C; please refer to her documentation for complete history. Briefly, 54 YO female with history of obesity and other problems as noted. Seen in ED on 11/21 and diagnosed with influenza B. Returned to ED today with pain and erythema of right leg. No associated fever. History of cellulitis of left leg in 2018. EXAM: General- no distress Lungs- clear to auscultation; no respiratory distress Cardiovascular- RRR; no murmur; no gallop; no JVD; no pretibial edema Abdomen- + bowel sounds, soft, nontender Extremities- erythema and tenderness right leg from ankle to mid-calf; healing eschar posterior calf without fluctuance or drainage Neuro- alert, oriented Skin- warm & dry DATA: WBC 7540. Lactate 1.6. K 3.2. Other lab studies as noted. DIRECTOR FUNDRAISING swab for influenza 2/3 - positive for influenza B. Chest x-ray 2/3 - no infiltrates. ASSESSMENT AND PLAN: Cellulitis right lower extremity. Does not appear to be septic. Received IV ceftriaxone in ED which will be continued. Add IV daptomycin (recommended by Pharmacy instead of vancomycin because of wt / BMI). Further management will depend on clinical course. Influenza B. Symptoms improving. Droplet isolation. Hypokalemia. PO repletion. Please refer to LIGIA Hyde's documentation for discussion of other issues.
[2019-11-23] MEDS ORDERED: VANCOMYCIN CONSULT ACTIVE PRN (11:13)
[2019-11-23] MEDS ORDERED: POLYETHYLENE (MIRALAX) 17 GM PACK PO PRN (11:13)
[2019-11-23] MEDS ORDERED: ALUMINUM/MAGNESIUM SUSP 30 ML UDC PO PRN (11:13)
[2019-11-23] MEDS ORDERED: MAGNESIUM HYDROXIDE SUSP 30 ML UDC PO PRN (11:13)
[2019-11-23] MEDS: MoRPHine SULFATE 4 MG/ML 1 ML CARP\\VIAL IV PRN (11:25)
[2019-11-23] MEDS: NSS + 20MEQ KCL 20 MEQ/1,000 ML BAG IV SCH ×2 (11:45→19:47)
[2019-11-23] MEDS: FAMOTIDINE 20 MG in SYRINGE 3 ML IV SCH ×2 (11:45→20:34)
[2019-11-23] MEDS ORDERED: DAPTOMYCIN CONSULT ACTIVE PRN (12:00)
[2019-11-23] MEDS: DAPTOmycin 350 MG in SYRINGE 0 ML IV SCH (13:21)
[2019-11-23] MEDS ORDERED: ACETAMINOPHEN 500 MG TAB PO PRN (15:14)
[2019-11-23] MEDS: ACETAMINOPHEN 1,000 MG/100 ML VIAL IV PRN ×2 (15:57→23:54)
[2019-11-23] MEDS: ENOXAPARIN INJ 40 MG/0.4 ML SYR SQ SCH (20:34)
[2019-11-24] MEDS: MoRPHine SULFATE 4 MG/ML 1 ML CARP\\VIAL IV PRN ×2 (00:06→07:50)
[2019-11-24] MEDS: NSS + 20MEQ KCL 20 MEQ/1,000 ML BAG IV SCH (03:24)
[2019-11-24 06:03] LABS: BUN Creatinine Ratio 15.3 (10-20); Creatinine Clr Calc Pharmacy 130.2 ml/min; Est GFR (African American) 114.9; Est GFR (Non-African American) 99.2; Potassium 4.4 mmol/L (3.5-5.1)
[2019-11-24 06:41] LABS: Basophils # (auto) 0.02 K/uL (0-0.2); Basophils % (auto) 0.3 %; Hematocrit (blood only) 37.3 % (37-47); Hemoglobin 12.4 g/dL (12.0-16.0); Immature Granulocytes # (auto) 0.01 K/uL (0.00-0.02); Immature Granulocytes % (auto) 0.2 %; Lymphocytes # (auto) 1.49 K/uL (1.2-3.4); Lymphocytes % (auto) 22.7 %; Mean Corpuscular Hemoglobin 28.2 pg (25-34); Mean Corpuscular Volume 84.8 fL (80-100); Mean Platelet Volume 9.9 fL (7.4-10.4); Monocytes # (auto) 0.61 K/uL (0.11-0.59); Monocytes % (auto) 9.3 %; Neutrophils # (auto) 4.43 K/uL (1.4-6.5); Neutrophils % (auto) 67.5 %; Platelet Count 117 K/uL (130-400); RDW Coefficient of Variation 13.6 % (11.5-14.5); RDW Standard Deviation 42.1 fL (36.4-46.3); White Blood Count 6.56 K/uL (4.8-10.8)
[2019-11-24 06:59] LABS: Mean Corpuscular Hgb Conc 33.2 g/dL (32-36)
[2019-11-24] MEDS: ENOXAPARIN INJ 40 MG/0.4 ML SYR SQ SCH (07:50)
[2019-11-24] MEDS: cefTRIAXone SODIUM 2,000 MG in DEXTROSE 5% 50 ML IV SCH (08:47)
[2019-11-24] MEDS: FAMOTIDINE 20 MG in SYRINGE 3 ML IV SCH (08:47)
--- NOTE | 2019-11-24 08:58 | Hospitalist Progress Note ---
Date of Service November 24, 2019 Assessment & Plan (1) Cellulitis of right lower extremity: -Circumferential well-demarcated right lower extremity cellulitis. Patient does not meet SIRS or sepsis criteria based on current CMS guidelines. -continue Continue IV antibiotics with Rocephin with daptomycin -prn acetaminophen if pain or fever, prn tramadol for moderate pain, prn IV hydromorphone for severe pain -11/24/2019: Patient continues to have right lower extremity erythema with tenderness that is present in anterior right lower leg and worse tenderness with erythema of the posterior right lower leg. await admission cultures (2) Influenza: -Positive influenza B on 11/21/2019 -Patient denies current respiratory symptoms. breathing on room air. no cough. no vomiting. patient reports flu symptoms was 2 weeks ago and generally better from respiratory symptoms -on droplet precautions (3) Hypokalemia: -admission serum potassium 3.2, likely in setting of GI loss due to emesis -no further vomiting -serum potassium is corrected by potassium supplementation by 11/24/2019 (4) Dehydration: -Due to poor p.o. intake from influenza B and cellulitis -given IV fluids (5) Acid reflux: -Patient complains of multiple episodes of emesis, "just stomach acid." -she was given Placed on Pepcid IV 20 mg -will transition to oral GERD medication (6) Morbid obesity: Encourage lifestyle and dietary modifications Encourage weight loss (7) DVT prophylaxis: Lovenox 40 mg SQ daily Subjective Patient denies current respiratory symptoms. breathing on room air. no cough. no vomiting. patient reports flu symptoms was 2 weeks ago and generally better from respiratory symptoms Patient continues to have right lower extremity erythema with tenderness that is present in anterior right lower leg and worse tenderness with erythema of the posterior right lower leg Patient able to stand and ambulate. no chest pain. no palpitations. no dizziness. no lightheadedness Review of Systems Review of Systems: All systems reviewed & are unremarkable except as noted in HPI & below Physical Exam Constitutional: + obese Eyes: PERRL, conjunctivae normal, anicteric sclerae EOM intact bilaterally ENMT: external ear and nose normal, oropharynx normal Neck: trachea midline, no thyromegaly normal visual inspection Respiratory: normal respiratory effort, lungs clear to auscultation Cardiovascular: Rate/Rhythm: regular rate and regular rhythm Gastrointestinal (Abdomen): normal bowel sounds, soft, nontender, no hepatosplenomegaly Musculoskeletal: Head/Neck/Chest: normocephalic and head atraumatic Patient continues to have right lower extremity erythema with tenderness that is present in anterior right lower leg and worse tenderness with erythema of the posterior right lower leg Neurologic: PERRL, EOMI, accommodation nl, no face palsy, no dysarthria CN's II-XI intact bilaterally Psychiatric: A+Ox3, euthymic affect Results & Data ([facility]) Vital Signs (Past 12 Hours) Vital Signs Temp Pulse Resp BP Pulse Ox 11/24/19 07:17 36.6 C 78 16 120/75 99 11/23/19 23:00 37.1 C 84 18 109/70 94
--- NOTE | 2019-11-24 09:10 | Infectious Disease Consult ---
Date of Consultation November 24, 2019 Assessment & Plan (1) Cellulitis of right lower extremity: continue IV abx, follow response and culture results. elevated leg. continue droplet precautions. would benefit from tamiflu (2) Influenza: History of Present Illness Attending Physician: Shaquille Duque MD pt admitted with right leg pain, on IV abx, tolerating well. blood cultures negative to date. was recently in ER, diagnosed with flu but not treated, still having significant flu symptoms, on no treatment, in droplet precautions. still having low grade fever interimittently. states spread of cellulitis has stopped but is having post calf pain. wbc 7, creat normal. no abd pain, eating well. no n/v/d. still with fatigue, achy, sob, cough. Allergies Allergy/AdvReac Type Severity Reaction Status Date / Time onion Allergy Verified 11/24/19 08:13 citalopram AdvReac Intermediate Nausea Verified 11/23/19 08:59 Home Medications Home Medications Medication Instructions Recorded Confirmed Type prochlorperazine maleate 5 mg PO Q8H PRN #14 tab 11/21/19 11/23/19 Rx [Compazine] Patient History Medical History History of depression History of migraine History of pancreatitis Gallstone Meningioma 12x5mm L retrocerebellar; follows neuro Morbid obesity Surgical History History of delivery (Resolved) History of cholecystectomy (Resolved) History of ERCP History of wisdom tooth extraction (Resolved) Hx of hysterectomy (Resolved) Family History Father Cancer Bladder cancer Mother Diabetes Aunt , 40s Stroke Social History Preferred Language: Sami Communication Ability: Effective Ambulatory Care Coordinator Required: No Beliefs That Will Affect Care: None Current Living Situation: Significant Other Current Living Situation Comment: and 2 children current occupational status: employed current occupation: [employer] Other Information That Helps Us Care for You: No Feels Safe at Home: Yes Safety Concerns: Feels Safe At This Time Smoking Status: Never smoker Do You Dip or Chew Tobacco: No ; Second Hand Exposure: No ; Tobacco Cessation Education Requested by Patient: No Hx Alcohol Use: No Hx Substance Use: No Review of Systems Review of Systems: All systems reviewed & are unremarkable except as noted in HPI & below Physical Exam Constitutional: WD/WN, vitals as above Eyes: PERRL, conjunctivae normal, anicteric sclerae ENMT: external ear and nose normal, oropharynx normal Neck: normal visual inspection Respiratory: normal respiratory effort, lungs clear to auscultation Cardiovascular: RRR, no murmur, no edema Gastrointestinal (Abdomen): normal bowel sounds, soft, nontender, no hepatosplenomegaly Musculoskeletal: no cyanosis or clubbing, extremities motor strength 5/5 Skin: no rashes, warm and dry + erythema (r post calf warm, erythema, no extension beyond line) Psychiatric: A+Ox3, euthymic affect Results & Data Vital Signs (Past 12 Hours) Vital Signs Temp Pulse Resp BP Pulse Ox 11/24/19 07:17 36.6 C 78 16 120/75 99 11/23/19 23:00 37.1 C 84 18 109/70 94 PG Care Time/CCT Total # of Minutes Spent Total Time Spent with Patient: Total time spent is greater than 50% in coordination of care (as documented) at patient's floor/unit and/or counseling patient: Coding Level of Care Code 57235 Inpt Consult Level 4 Diagnoses Cellulitis of right lower extremity L03.115 Influenza J11.1
[2019-11-24] MEDS: OSELTAMIVIR PHOSPHATE 75 MG CAP PO SCH ×2 (09:36→19:25)
[2019-11-24] MEDS: DAPTOmycin 350 MG in SYRINGE 0 ML IV SCH (12:20)
[2019-11-24] MEDS: OSELTAMIVIR PHOSPHATE SUSP 75 MG/12.5 ML UDP PO SCH ×2 (12:21→20:32)
[2019-11-24] MEDS: HYDROmorphone INJ 0.5 MG/0.5 ML SYR IV PRN ×2 (12:24→18:30)
[2019-11-24] MEDS: ONDANSETRON INJ 2 MG/ML 2 ML VIAL IV PRN (18:30)
[2019-11-24] MEDS: ACETAMINOPHEN 1,000 MG/100 ML VIAL IV PRN (20:30)
[2019-11-25] MEDS: ONDANSETRON INJ 2 MG/ML 2 ML VIAL IV PRN (04:27)
[2019-11-25] MEDS: HYDROmorphone INJ 0.5 MG/0.5 ML SYR IV PRN (04:27)
[2019-11-25 05:50] LABS: Basophils # (auto) 0.01 K/uL (0-0.2); Basophils % (auto) 0.2 %; Eosinophils # (auto) 0.03 K/uL (0-0.5); Eosinophils % (auto) 0.7 %; Hematocrit (blood only) 36.9 % (37-47); Hemoglobin 11.7 g/dL (12.0-16.0); Lymphocytes # (auto) 0.97 K/uL (1.2-3.4); Lymphocytes % (auto) 24.1 %; Mean Corpuscular Hemoglobin 27.7 pg (25-34); Mean Corpuscular Hgb Conc 31.7 g/dL (32-36); Mean Corpuscular Volume 87.4 fL (80-100); Mean Platelet Volume 10.7 fL (7.4-10.4); Monocytes % (auto) 7.4 %; Neutrophils # (auto) 2.72 K/uL (1.4-6.5); Neutrophils % (auto) 67.6 %; Platelet Count 156 K/uL (130-400); RDW Coefficient of Variation 13.6 % (11.5-14.5); RDW Standard Deviation 43.5 fL (36.4-46.3); Red Blood Count 4.22 M/uL (4.2-5.4); White Blood Count 4.03 K/uL (4.8-10.8)
[2019-11-25] MEDS ORDERED: SODIUM CHLORIDE 0.9% 1000ML 1,000 ML IV SCH (06:15)
[2019-11-25 06:25] LABS: Albumin Level 2.6 gm/dl (3.4-5.0); BUN Creatinine Ratio 15.9 (10-20); Creatinine Clr Calc Pharmacy 142.8 ml/min; Est GFR (African American) 118.5; Est GFR (Non-African American) 102.2
[2019-11-25 06:40] LABS: Albumin Globulin Ratio 0.7 (0.9-2); Bilirubin,Total 0.3 mg/dl (0.2-1); Globulin 3.8 gm/dl (2.5-4.0); Total Protein 6.4 gm/dl (6.4-8.2)
[2019-11-25] MEDS: ACETAMINOPHEN 1,000 MG/100 ML VIAL IV PRN (08:36)
[2019-11-25] MEDS: ENOXAPARIN INJ 40 MG/0.4 ML SYR SQ SCH (08:44)
[2019-11-25] MEDS: OSELTAMIVIR PHOSPHATE SUSP 75 MG/12.5 ML UDP PO SCH ×2 (08:48→20:40)
[2019-11-25] MEDS ORDERED: FAMOTIDINE 20 MG TAB PO SCH (09:00)
[2019-11-25] MEDS: FAMOTIDINE 20 MG in SYRINGE 3 ML IV SCH ×2 (09:49→20:40)
[2019-11-25] MEDS: cefTRIAXone SODIUM 2,000 MG in DEXTROSE 5% 50 ML IV SCH (09:51)
[2019-11-25] MEDS ORDERED: KETOROLAC TROMETHAMINE 15 MG/ML VIAL IV ONE (10:15)
--- NOTE | 2019-11-25 10:23 | Hospitalist Progress Note ---
Date of Service November 25, 2019 Assessment & Plan (1) Cellulitis of right lower extremity: -Circumferential well-demarcated right lower extremity cellulitis. Patient does not meet SIRS or sepsis criteria based on current CMS guidelines. -continue Continue IV antibiotics with ceftriaxone with daptomycin -prn acetaminophen if pain or fever, prn tramadol for moderate pain, prn IV hydromorphone for severe pain -11/24/2019: Patient continues to have right lower extremity erythema with tenderness that is present in anterior right lower leg and worse tenderness with erythema of the posterior right lower leg. await admission cultures. continue ceftriaxone and Daptomycin -11/25/2019: right lower extremity less pain. erythema still present but posterior right leg is less tender to palpation. continue ceftriaxone and Daptomycin. blood cultures no growth to date so far (2) Influenza: -Positive influenza B on 11/21/2019 -Patient denies current respiratory symptoms. breathing on room air. no cough. no vomiting. patient reports flu symptoms was 2 weeks ago and generally better from respiratory symptoms -on droplet precautions -Tamiflu started on 11/24/2019 -headache and vomiting may be flu like symptoms - pain medications prn, anti- emtics prn (3) Hypokalemia: -admission serum potassium 3.2, likely in setting of GI loss due to emesis -no further vomiting -serum potassium is corrected by potassium supplementation by 11/24/2019 (4) Dehydration: -Due to poor p.o. intake from influenza B and cellulitis -given IV fluids on this stay (5) Acid reflux: -famotidine (6) Morbid obesity: -Encourage lifestyle and dietary modifications -ambulation as tolerated (7) DVT prophylaxis: Lovenox 40 mg SQ daily Subjective Patient reports headache overnight. also had vomiting. headache better this morning. right lower extremity less pain. erythema still present but posterior right leg is less tender to palpation. breathing on room air. no chest pain. no abdomen pain Review of Systems Review of Systems: All systems reviewed & are unremarkable except as noted in HPI & below Physical Exam Constitutional: + obese Eyes: PERRL, conjunctivae normal, anicteric sclerae EOM intact bilaterally ENMT: external ear and nose normal, oropharynx normal Neck: trachea midline, no thyromegaly normal visual inspection Respiratory: normal respiratory effort, lungs clear to auscultation Cardiovascular: Rate/Rhythm: regular rate and regular rhythm Gastrointestinal (Abdomen): normal bowel sounds, soft, nontender, no hepatosplenomegaly Musculoskeletal: Head/Neck/Chest: normocephalic and head atraumatic right lower extremity less pain. erythema still present but posterior right leg is less tender to palpation Neurologic: PERRL, EOMI, accommodation nl, no face palsy, no dysarthria CN's II-XI intact bilaterally Psychiatric: A+Ox3, euthymic affect Results & Data ([facility]) Vital Signs (Past 12 Hours) Vital Signs Temp Pulse Resp BP Pulse Ox 11/25/19 07:17 36.9 C 79 18 114/69 92 11/25/19 03:53 125/76 11/24/19 23:40 36.5 C 70 16 99/61 L 97
[2019-11-25] MEDS: DAPTOmycin 350 MG in SYRINGE 0 ML IV SCH (11:49)
[2019-11-25] MEDS ORDERED: GUAIFENESIN/CODEINE 100MG/10MG 5ML UDC PO PRN (21:41)
[2019-11-25] MEDS ORDERED: COUGH DROP (SUGAR FREE) LOZ 24 LOZ/1 BOX BUCCAL STA (23:08)
[2019-11-25] MEDS ORDERED: COUGH DROP (SUGAR FREE) LOZ 24 LOZ/1 BOX BUCCAL ONE (23:10)
[2019-11-25] MEDS: BENZONATATE 100 MG CAPSULE PO PRN (23:32)
[2019-11-26] MEDS ORDERED: CETIRIZINE HCL 10 MG TABLET PO ONE ×2 (00:20→19:55)
[2019-11-26 05:44] LABS: Eosinophils # (auto) 0.08 K/uL (0-0.5); Eosinophils % (auto) 1.9 %; Hematocrit (blood only) 35.6 % (37-47); Hemoglobin 11.5 g/dL (12.0-16.0); Immature Granulocytes # (auto) 0.01 K/uL (0.00-0.02); Immature Granulocytes % (auto) 0.2 %; Lymphocytes % (auto) 28.2 %; Mean Corpuscular Hemoglobin 28.3 pg (25-34); Mean Corpuscular Hgb Conc 32.3 g/dL (32-36); Mean Corpuscular Volume 87.5 fL (80-100); Monocytes % (auto) 9.4 %; Neutrophils # (auto) 2.56 K/uL (1.4-6.5); Neutrophils % (auto) 60.3 %; Platelet Count 197 K/uL (130-400); RDW Coefficient of Variation 13.5 % (11.5-14.5); RDW Standard Deviation 43.3 fL (36.4-46.3); Red Blood Count 4.07 M/uL (4.2-5.4); White Blood Count 4.25 K/uL (4.8-10.8)
[2019-11-26 06:06] LABS: Albumin Level 2.6 gm/dl (3.4-5.0); BUN Creatinine Ratio 17.5 (10-20); Calcium 8.5 mg/dl (8.5-10.1); Creatinine Clr Calc Pharmacy 128.3 ml/min; Est GFR (African American) 114.4; Est GFR (Non-African American) 98.7; Potassium 3.9 mmol/L (3.5-5.1)
[2019-11-26 06:09] LABS: Albumin Globulin Ratio 0.7 (0.9-2); Bilirubin,Total 0.2 mg/dl (0.2-1); Globulin 3.9 gm/dl (2.5-4.0); Total Protein 6.5 gm/dl (6.4-8.2)
[2019-11-26] MEDS: OSELTAMIVIR PHOSPHATE SUSP 75 MG/12.5 ML UDP PO SCH ×2 (09:05→21:09)
[2019-11-26] MEDS: cefTRIAXone SODIUM 2,000 MG in DEXTROSE 5% 50 ML IV SCH (09:05)
[2019-11-26] MEDS: FAMOTIDINE 20 MG in SYRINGE 3 ML IV SCH ×2 (09:06→21:09)
[2019-11-26] MEDS: TRAMADOL HCL 50 MG TABLET PO PRN (09:10)
--- NOTE | 2019-11-26 09:27 | Hospitalist Progress Note ---
Date of Service November 26, 2019 Assessment & Plan (1) Cellulitis of right lower extremity: -Circumferential well-demarcated right lower extremity cellulitis. Patient does not meet SIRS or sepsis criteria based on current CMS guidelines. -continue Continue IV antibiotics with ceftriaxone with daptomycin -prn acetaminophen if pain or fever, prn tramadol for moderate pain, prn IV hydromorphone for severe pain -11/24/2019: Patient continues to have right lower extremity erythema with tenderness that is present in anterior right lower leg and worse tenderness with erythema of the posterior right lower leg. await admission cultures. continue ceftriaxone and Daptomycin -11/25/2019: right lower extremity less pain. erythema still present but posterior right leg is less tender to palpation. continue ceftriaxone and Daptomycin. blood cultures no growth to date so far -11/26/2019: would continue IV antibiotics for now to achieve better control of the erythema/cellulitis of the right leg (2) Influenza: -Positive influenza B on 11/21/2019 -Patient denies current respiratory symptoms. breathing on room air. no cough. no vomiting. patient reports flu symptoms was 2 weeks ago and generally better from respiratory symptoms -on droplet precautions -Tamiflu started on 11/24/2019 -headache and vomiting may be flu like symptoms - pain medications prn, anti- emtics prn (3) Hypokalemia: -admission serum potassium 3.2, likely in setting of GI loss due to emesis -no further vomiting -serum potassium is corrected by potassium supplementation by 11/24/2019 (4) Dehydration: -Due to poor p.o. intake from influenza B and cellulitis -given IV fluids on this stay (5) Acid reflux: -famotidine (6) Morbid obesity: -Encourage lifestyle and dietary modifications -ambulation as tolerated (7) DVT prophylaxis: Lovenox 40 mg SQ daily Subjective Patient reports poor sleep and headache. and that she is coughing up sputum at night. on my exam, patient not in acute distress. her lung exam are clear and no wheezing. patient not coughing during exam. no rhinorrhea noted. right lower extremity erythema persists but appears less red and less tender. Review of Systems Review of Systems: All systems reviewed & are unremarkable except as noted in HPI & below Physical Exam Constitutional: + obese Eyes: PERRL, conjunctivae normal, anicteric sclerae EOM intact bilaterally ENMT: external ear and nose normal, oropharynx normal Neck: trachea midline, no thyromegaly normal visual inspection Respiratory: normal respiratory effort, lungs clear to auscultation Cardiovascular: Rate/Rhythm: regular rate and regular rhythm Gastrointestinal (Abdomen): normal bowel sounds, soft, nontender, no hepatosplenomegaly Musculoskeletal: Head/Neck/Chest: normocephalic and head atraumatic Skin: right lower extremity erythema persists but appears less red and less tender Neurologic: PERRL, EOMI, accommodation nl, no face palsy, no dysarthria CN's II-XI intact bilaterally Psychiatric: A+Ox3, euthymic affect Results & Data ([facility]) Vital Signs (Past 12 Hours) Vital Signs Temp Pulse Resp BP Pulse Ox 11/26/19 07:00 36.6 C 77 18 123/76 95 11/25/19 23:20 36.8 C 80 18 139/79 93
[2019-11-26] MEDS: DAPTOmycin 350 MG in SYRINGE 0 ML IV SCH (12:57)
[2019-11-26] MEDS: ENOXAPARIN INJ 40 MG/0.4 ML SYR SQ SCH (13:00)
[2019-11-26] MEDS: ACETAMINOPHEN 325 MG TAB PO PRN (13:06)
[2019-11-26] MEDS: BENZONATATE 100 MG CAPSULE PO PRN (19:48)
[2019-11-27] MEDS: ONDANSETRON INJ 2 MG/ML 2 ML VIAL IV PRN (09:20)
[2019-11-27] MEDS: FAMOTIDINE 20 MG in SYRINGE 3 ML IV SCH ×2 (09:20→20:48)
[2019-11-27] MEDS: cefTRIAXone SODIUM 2,000 MG in DEXTROSE 5% 50 ML IV SCH (09:21)
[2019-11-27] MEDS: OSELTAMIVIR PHOSPHATE SUSP 75 MG/12.5 ML UDP PO SCH ×2 (09:21→20:48)
[2019-11-27] MEDS: ENOXAPARIN INJ 40 MG/0.4 ML SYR SQ SCH (09:59)
[2019-11-27] MEDS: TRAMADOL HCL 50 MG TABLET PO PRN (10:04)
--- NOTE | 2019-11-27 11:52 | Hospitalist Progress Note ---
Date of Service November 27, 2019 Assessment & Plan (1) Cellulitis of right lower extremity: -Circumferential well-demarcated right lower extremity cellulitis. Patient does not meet SIRS or sepsis criteria based on current CMS guidelines. -continue Continue IV antibiotics with ceftriaxone with daptomycin -prn acetaminophen if pain or fever, prn tramadol for moderate pain, prn IV hydromorphone for severe pain -11/24/2019: Patient continues to have right lower extremity erythema with tenderness that is present in anterior right lower leg and worse tenderness with erythema of the posterior right lower leg. await admission cultures. continue ceftriaxone and Daptomycin -11/25/2019: right lower extremity less pain. erythema still present but posterior right leg is less tender to palpation. continue ceftriaxone and Daptomycin. blood cultures no growth to date so far -11/26/2019: would continue IV antibiotics for now to achieve better control of the erythema/cellulitis of the right leg -11/27/2019: if no evidence of pneumonia then can consider switching to oral antibiotics for the right lower extremity cellulitis (2) Influenza: -Positive influenza B on 11/21/2019 -Patient reports flu symptoms was 2 weeks prior tro admission and generally better from respiratory symptoms -on droplet precautions -Tamiflu started on 11/24/2019 -headache and vomiting may be flu like symptoms - pain medications prn, anti- emtics prn -2 view Chest X ray on 11/27/2019 to rule out pneumonia (3) Hypokalemia: -admission serum potassium 3.2, likely in setting of GI loss due to emesis -no further vomiting -serum potassium is corrected by potassium supplementation by 11/24/2019 (4) Dehydration: -Due to poor p.o. intake from influenza B and cellulitis -was given IV fluids on this hospital stay -appears resolved (5) Acid reflux: -famotidine (6) Morbid obesity: -Encourage lifestyle and dietary modifications -ambulation as tolerated (7) DVT prophylaxis: Lovenox 40 mg SQ daily Subjective anterior right leg appears to have resolving cellulitis, the posterior right leg looks about the same as yesterday no chest pain. headache better this morning. no abdomen pain. patient has cough. she reports concern of wheezing but lung exam sounds normal. no dizziness. no lightheadedness Review of Systems Review of Systems: All systems reviewed & are unremarkable except as noted in HPI & below Physical Exam Constitutional: + obese Eyes: PERRL, conjunctivae normal, anicteric sclerae EOM intact bilaterally ENMT: external ear and nose normal, oropharynx normal Neck: trachea midline, no thyromegaly normal visual inspection Respiratory: normal respiratory effort, lungs clear to auscultation Cardiovascular: Rate/Rhythm: regular rate and regular rhythm Gastrointestinal (Abdomen): normal bowel sounds, soft, nontender, no hepatosplenomegaly Musculoskeletal: Head/Neck/Chest: normocephalic and head atraumatic anterior right leg appears to have resolving cellulitis, the posterior right leg looks about the same as yesterday Neurologic: PERRL, EOMI, accommodation nl, no face palsy, no dysarthria CN's II-XI intact bilaterally Psychiatric: A+Ox3, euthymic affect Results & Data ([facility]) Vital Signs (Past 12 Hours) Vital Signs Temp Pulse Resp BP Pulse Ox 11/27/19 07:01 37.0 C 73 17 148/84 H 94
--- NOTE | 2019-11-27 12:23 | XRay Report ---
XR chest 2V PA/lateral CLINICAL HISTORY: persistent cough. Influenza +, rule out pneumonia COMPARISON STUDY: Chest radiograph November 21, 2019. FINDINGS: Lung volumes are normal. Lungs are clear. There is no pneumothorax or pleural effusion. Car diac size is normal. Mediastinal contours are normal. There is no evidence for pulmonary edema. Incid ental note is made of cholecystectomy clips. IMPRESSION: No acute cardiopulmonary findings. ACT 112: Negative or not required by law. Electronically signed by: Cristiano Wilcox M.D. 11/27/2019 12:21 PM
[2019-11-27] MEDS: DAPTOmycin 350 MG in SYRINGE 0 ML IV SCH (13:12)
[2019-11-27] MEDS: cephALEXin 500 MG CAP PO SCH ×2 (16:05→20:48)
[2019-11-27] MEDS: ACETAMINOPHEN 325 MG TAB PO PRN (16:05)
[2019-11-27] MEDS: DOXYCYCLINE HYCLATE 100 MG CAP PO SCH (20:48)
[2019-11-28] MEDS: TRAMADOL HCL 50 MG TABLET PO PRN (00:07)
[2019-11-28] MEDS: ACETAMINOPHEN 325 MG TAB PO PRN ×2 (02:54→08:38)
[2019-11-28 06:11] LABS: Basophils # (auto) 0.01 K/uL (0-0.2); Basophils % (auto) 0.2 %; Eosinophils # (auto) 0.09 K/uL (0-0.5); Eosinophils % (auto) 1.9 %; Hematocrit (blood only) 37.2 % (37-47); Hemoglobin 12.1 g/dL (12.0-16.0); Immature Granulocytes # (auto) 0.01 K/uL (0.00-0.02); Immature Granulocytes % (auto) 0.2 %; Lymphocytes # (auto) 1.23 K/uL (1.2-3.4); Lymphocytes % (auto) 25.6 %; Mean Corpuscular Hemoglobin 28.2 pg (25-34); Mean Corpuscular Hgb Conc 32.5 g/dL (32-36); Mean Corpuscular Volume 86.7 fL (80-100); Mean Platelet Volume 9.3 fL (7.4-10.4); Monocytes # (auto) 0.51 K/uL (0.11-0.59); Monocytes % (auto) 10.6 %; Neutrophils # (auto) 2.96 K/uL (1.4-6.5); Neutrophils % (auto) 61.5 %; Platelet Count 264 K/uL (130-400); RDW Coefficient of Variation 13.5 % (11.5-14.5); RDW Standard Deviation 42.8 fL (36.4-46.3); Red Blood Count 4.29 M/uL (4.2-5.4); White Blood Count 4.81 K/uL (4.8-10.8)
[2019-11-28 06:40] LABS: Albumin Level 2.7 gm/dl (3.4-5.0); Calcium 9.4 mg/dl (8.5-10.1); Creatinine Clr Calc Pharmacy 121.3 ml/min; Est GFR (African American) 108.2; Est GFR (Non-African American) 93.4; Potassium 4.3 mmol/L (3.5-5.1)
[2019-11-28 06:42] LABS: Albumin Globulin Ratio 0.7 (0.9-2); Bilirubin,Total 0.2 mg/dl (0.2-1); Total Protein 6.7 gm/dl (6.4-8.2)
[2019-11-28] MEDS: DOXYCYCLINE HYCLATE 100 MG CAP PO SCH (08:34)
[2019-11-28] MEDS: cephALEXin 500 MG CAP PO SCH ×3 (08:34→16:38)
[2019-11-28] MEDS: OSELTAMIVIR PHOSPHATE SUSP 75 MG/12.5 ML UDP PO SCH (08:35)
[2019-11-28] MEDS: FAMOTIDINE 20 MG in SYRINGE 3 ML IV SCH (08:35)
--- NOTE | 2019-11-28 10:54 | Hospitalist Progress Note ---
Date of Service November 28, 2019 Assessment & Plan (1) Cellulitis of right lower extremity: -Circumferential well-demarcated right lower extremity cellulitis. Patient does not meet SIRS or sepsis criteria based on current CMS guidelines. -continue Continue IV antibiotics with ceftriaxone with daptomycin -prn acetaminophen if pain or fever, prn tramadol for moderate pain, prn IV hydromorphone for severe pain -11/24/2019: Patient continues to have right lower extremity erythema with tendern ess that is present in anterior right lower leg and worse tenderness with erythema of the posterior right lower leg. await admission cultures. continue ceftriaxone and Daptomycin -11/25/2019: right lower extremity less pain. erythema still present but posterior right leg is less tender to palpation. continue ceftriaxone and Daptomycin. blood cultures no growth to date so far -11/26/2019: would continue IV antibiotics for now to achieve better control of the erythema/cellulitis of the right leg -11/27/2019: patient received IV antibiotics on the AM and then switched to oral cephalexin and doxycycline for the treatment of cellulitis, CXR no evidence of pneumonia, patient continued to be monitored inpatient for antibiotic tolerance and to avoid potential allergic reactions -11/28/2019: anterior right leg erythema appears generally resolved. there is still some posterior right leg erythema but the redness is diminishing. discharge medications sent electronically to [address] [address] primary care doctor appointment 12/02/2019 11:00 AM Provider Mendel Swain MD Department [facility] antibiotic of cephalexin (Keflex) 500 mg 4 times a day with Doxycycline 100 mg twice a day for 5 more days (since patient had antibiotic treatment inpatient started on 11/23/2019), patient's prescription oral antibiotic will complete 10 day total course of antibiotic Patient completed course of Tamiflu and Chest X ray with no pneumonia, 100 mg three times a day Tessalon Perles as needed for cough (15 tablets prescribed). Famotidine 20 mg twice a day for any gastric reflux symptoms or cough from gastric reflux also prescribed (2) Influenza: -Positive influenza B on 11/21/2019 -Patient reports flu symptoms was 2 weeks prior tro admission and generally better from respiratory symptoms -on droplet precautions during hospital stay and was on Tamiflu that started on 11/24/2019 -headache and vomiting may be flu like symptoms - pain medications prn, anti- emtics prn -2 view Chest X ray on 11/27/2019 is clear of lung infiltrates (3) Hypokalemia: -admission serum potassium 3.2, likely in setting of GI loss due to emesis -no further vomiting -serum potassium is corrected by potassium supplementation by 11/24/2019 (4) Dehydration: -Due to poor p.o. intake from influenza B and cellulitis -was given IV fluids on this hospital stay -appears resolved (5) Acid reflux: -famotidine (6) Morbid obesity: -Encourage lifestyle and dietary modifications -ambulation as tolerated (7) DVT prophylaxis: Lovenox 40 mg SQ daily when inpatient Admission and Anticipated Discharge Date Admission Date: November 25, 2019 Subjective anterior right leg erythema appears generally resolved. there is still some posterior right leg erythema but the redness is diminishing. some dry cough. normal breathing. no wheezing. no dizziness. no headache. no vomiting. no chest pain. no abdomen pain. discharge plans discussed at length Review of Systems Review of Systems: All systems reviewed & are unremarkable except as noted in HPI & below Physical Exam Constitutional: + obese Eyes: PERRL, conjunctivae normal, anicteric sclerae EOM intact bilaterally ENMT: external ear and nose normal, oropharynx normal Neck: trachea midline, no thyromegaly normal visual inspection Respiratory: normal respiratory effort, lungs clear to auscultation Cardiovascular: Rate/Rhythm: regular rate and regular rhythm Gastrointestinal (Abdomen): normal bowel sounds, soft, nontender, no hepatosplenomegaly Musculoskeletal: Head/Neck/Chest: normocephalic and head atraumatic Neurologic: PERRL, EOMI, accommodation nl, no face palsy, no dysarthria CN's II-XI intact bilaterally Psychiatric: A+Ox3, euthymic affect Results & Data ([facility]) Vital Signs (Past 12 Hours) Vital Signs Temp Pulse Resp BP Pulse Ox 11/28/19 06:31 36.6 C 75 18 112/73 96
--- NOTE | 2019-11-28 10:57 | Discharge Summary ---
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 Daughter noticed patient leg became very red last evening. When she looked down she knew it was "cellulitis."She has prior history of left lower extremity cellulitis many years ago that required hospitalization for IV antibiotics at [facility]. Redness was noted last evening around 5 PM. outlined area of redness and by the time she woke up this morning it started to extend. Last evening she felt chills, sweats and increasingly worse pain and mobility. She denies any documented fever, lightheadedness, dizziness; however she has been experiencing nausea and vomiting. She did have a scab on her posterior calf which is felt to be source of cellulitis. 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 Of significance patient was diagnosed with influenza B on 11/20 in which her symptoms started 11 days prior to that. The symptoms included sinus congestion, rhinorrhea, hoarseness, productive cough with clear sputum, myalgias and profound fatigue. Symptoms persisted and continued to worsen therefore she was seen in ED on 11/20 and diagnosed with influenza B, treated conservatively given duration. She currently denies any chest pain, shortness of breath, wheezing, TORREZ, abdominal pain, dysuria, increased urgency or frequency with urination, change in bowel habits. Her appetite has otherwise been poor for the past 2 weeks and has been having episodes of vomiting daily, "it is just acid." Overall poor p.o. intake. She does not take any medications and denies any drug allergies. She did have a fall on the ice approximately 2 to 3 weeks ago with no known injuries. In ED patient elevated temp 37.7, heart rate 93, BP 135/67 and saturating well on room air. WBC 7.54, H&H 13.7 and 42.2, platelet 154, sodium 134, K3.2, BUN 11, creatinine 0.98, glucose 125, lactate 1.6. Blood cultures were drawn and pending. In ED she received 2 g IV Rocephin, IV fluid, IV Zofran and IV morphine. Admission Exam Per Admitting Provider Constitutional: WD/WN, morbidly obese, female, lying in bed, vitals as above, NAD, pleasant, conversing easily Head: Normocephalic, Atraumatic Eyes: PERRL, conjunctivae normal, anicteric sclerae ENMT: external ear and nose normal, oropharynx with dry mucous membranes Neck: trachea midline, no thyromegaly normal visual inspection Respiratory: normal respiratory effort, lungs clear to auscultation, no wheeze, rales, rhonchi. Normal insp/exp effort, no accessory muscle use Cardiovascular: RRR, no murmur, no edema Vessels: no JVD or carotid bruit Chest: normal inspection of chest Abdomen: Obese abdomen, normal bowel sounds, soft, nontender, no hepatosplenomegaly Musculoskeletal: no cyanosis or clubbing, MSK strength 5/5 all extremities, RLE unable to be tested due to pain Skin: Right lower extremity cellulitis inferior to knee joint and superior to ankle joint, circumferential of calf, 16 cm x 8 cm but irregular, nonpurulent, on posterior calf there is evidence of scab or puncture site, warm and dry normal turgor Neurologic: PERRL, EOMI, accommodation nl, no face palsy, no dysarthria CN's II-XI intact bilaterally and moves all extremities Psychiatric: A+Ox3, euthymic affect Lymphatic: no cervical or axillary lymphadenopathy : deferred Principal Diagnosis Cellulitis of right lower extremity Influenza B Hypokalemia Dehydration Discharge Exam Constitutional + obese Eyes PERRL, conjunctivae normal, anicteric sclerae EOM intact bilaterally ENMT external ear and nose normal, oropharynx normal Neck trachea midline, no thyromegaly normal visual inspection Respiratory normal respiratory effort, lungs clear to auscultation Cardiovascular Rate/Rhythm: regular rate and regular rhythm Gastrointestinal (Abdomen) normal bowel sounds, soft, nontender, no hepatosplenomegaly Musculoskeletal Head/Neck/Chest: normocephalic and head atraumatic Neurologic PERRL, EOMI, accommodation nl, no face palsy, no dysarthria CN's II-XI intact bilaterally Psychiatric A+Ox3, euthymic affect Discharge Data Allergies Allergy/AdvReac Type Severity Reaction Status Date / Time onion Allergy Verified 11/24/19 08:13 citalopram AdvReac Intermediate Nausea Verified 11/23/19 08:59 Consultations 11/23/19 10:11 ED Decision to Admit Stat 11/23/19 11:56 Consult Infectious Diseases Routine Hospital Course (1) Cellulitis of right lower extremity: -Circumferential well-demarcated right lower extremity cellulitis. Patient does not meet SIRS or sepsis criteria based on current CMS guidelines. -continue Continue IV antibiotics with ceftriaxone with daptomycin -prn acetaminophen if pain or fever, prn tramadol for moderate pain, prn IV hydromorphone for severe pain -11/24/2019: Patient continues to have right lower extremity erythema with tenderness that is present in anterior right lower leg and worse tenderness with erythema of the posterior right lower leg. await admission cultures. continue ceftriaxone and Daptomycin -11/25/2019: right lower extremity less pain. erythema still present but posterior right leg is less tender to palpation. continue ceftriaxone and Daptomycin. blood cultures no growth to date so far -11/26/2019: would continue IV antibiotics for now to achieve better control of the erythema/cellulitis of the right leg -11/27/2019: patient received IV antibiotics on the AM and then switched to oral cephalexin and doxycycline for the treatment of cellulitis, CXR no evidence of pneumonia, patient continued to be monitored inpatient for antibiotic tolerance and to avoid potential allergic reactions -11/28/2019: anterior right leg erythema appears generally resolved. there is still some posterior right leg erythema but the redness is diminishing. discharge medications sent electronically to [facility] [address] [place] [id number] primary care doctor appointment 12/02/2019 11:00 AM Provider Mendel Swain MD Department Family [facility] antibiotic of cephalexin (Keflex) 500 mg 4 times a day with Doxycycline 100 mg twice a day for 5 more days (since patient had antibiotic treatment inpatient started on 11/23/2019), patient's prescription oral antibiotic will complete 10 d ay total course of antibiotic Patient completed course of Tamiflu and Chest X ray with no pneumonia, 100 mg three times a day Tessalon Perles as needed for cough (15 tablets prescribed). Famotidine 20 mg twice a day for any gastric reflux symptoms or cough from gastric reflux also prescribed (2) Influenza: -Positive influenza B on 11/21/2019 -Patient reports flu symptoms was 2 weeks prior tro admission and generally better from respiratory symptoms -on droplet precautions during hospital stay and was on Tamiflu that started on 11/24/2019 -headache and vomiting may be flu like symptoms - pain medications prn, anti- emtics prn -2 view Chest X ray on 11/27/2019 is clear of lung infiltrates (3) Hypokalemia: -admission serum potassium 3.2, likely in setting of GI loss due to emesis -no further vomiting -serum potassium is corrected by potassium supplementation by 11/24/2019 (4) Dehydration: -Due to poor p.o. intake from influenza B and cellulitis -was given IV fluids on this hospital stay -appears resolved (5) Acid reflux: -famotidine (6) Morbid obesity: -Encourage lifestyle and dietary modifications -ambulation as tolerated (7) DVT prophylaxis: Lovenox 40 mg SQ daily when inpatient Total Time Total Time Spent Total Time Spent (In Minutes): 40 minutes Total Time Includes: Examination of the Patient, Discharge Planning, Medication Reconciliation and Communication With Other Providers Discharge Plan Discharge Items Patient Disposition: Home - Self-Care Reason For Visit: CELLULITIS LEG, INFLUENZA B -- DROPLET PRECAUTIONS Discharge Diagnosis: Cellulitis of right lower extremity Influenza B Hypokalemia Dehydration Condition on Discharge: Good Activity: Per Instructions section Non-emergency contact: Primary Care Provider Call non-emergency contact if: you have any medication questions Follow-up/Referrals: Mendel Swain MD [Primary Care Provider] - 12/02/19 10:45 am (PLEASE CALL [phone] IF YOU NEED TO RESCHEDULE THIS APPOINTMENT) Diet: Regular Addtl Attending Provider Instructions: discharge [place] [address] primary care doctor appointment 12/02/2019 11:00 AM Provider Mendel Swain MD Department Family Practice [facility] antibiotic of cephalexin (Keflex) 500 mg 4 times a day with Doxycycline 100 mg twice a day for 5 more days (since patient had antibiotic treatment inpatient started on 11/23/2019), patient's prescription oral antibiotic will complete 10 day total course of antibiotic Patient completed course of Tamiflu and Chest X ray with no pneumonia, 100 mg three times a day Tessalon Perles as needed for cough (15 tablets prescribed). Famotidine 20 mg twice a day for any gastric reflux symptoms or cough from gastric reflux also prescribed Pending Studies at Discharge: No Stand-Alone Forms: My [facility], Smoking Cessation Medications and DC Order Prescriptions: New cephalexin 500 mg Capsule 500 mg PO QID 5 Days Qty: 20 RF: 0 doxycycline hyclate 100 mg Capsule 100 mg PO BID 5 Days Qty: 10 RF: 0 famotidine 20 mg Tablet 20 mg PO BID 30 Days Qty: 60 RF: 0 benzonatate [Tessalon Perles] 100 mg Capsule 100 mg PO TID PRN (Reason: cough) 5 Days Qty: 15 RF: 0 Continued prochlorperazine maleate [Compazine] 5 mg tablet 5 mg PO Q8H PRN (Reason: nausea and vomiting) Qty: 14 RF: 0 Discharge Orders: Discharge Order (Routine); Ordered 11/28/19 Ordered By: Shaquille Duque Admission Data Admit Date/Time: 11/25/19 07:56 Attending Provider: Shaquille Duque Admit Provider: Paco Medrano Primary Care Provider: Mendel Swain Other Providers: Paco Medrano ; Mery Tamayo
[2019-11-28] MEDS: BENZONATATE 100 MG CAPSULE PO PRN (13:12)
[2019-11-28] MEDS: ENOXAPARIN INJ 40 MG/0.4 ML SYR SQ SCH (13:12)
[2019-11-28] MEDS ORDERED: FAMOTIDINE 20 MG TAB PO SCH (21:00)
== END 2019-11-28 19:07 | disposition home or self-care (01) ==
LOC: ED 08:09 → 4W 08:09 → SUATTDRO 10:12 → 4W 10:59

== ENCOUNTER 2022-05-19 12:18 | Inpatient (IN) ==
--- NOTE | 2022-05-19 13:12 | Emergency Department Note ---
History of Present Illness General Chief complaint: Leg Injury/Pain Stated complaint: CALF PAIN, RASH Time Seen by Provider: 05/19/22 12:56 History of Present Illness Maximum Pain Intensity: 8 This is a 57-year-old female that presents to the emergency department via private vehicle with complaints of "right calf pain, rash". Patient notes a history of right lower extremity cellulitis. She states this will be the fifth time she has had cellulitis of the right lower extremity. No known trauma or injury. She notes the last time she was treated for this was just over a month ago. She states that beginning 2 days ago she felt unwell. She began with vomiting and diarrhea. She notes the diarrhea is watery like in nature. At times she notes diaphoresis and other times she notes she is freezing. She questioned if perhaps she had food poisoning therefore rested yesterday. She notes she has not been able to eat or drink anything since yesterday. She slept most of yesterday and then awoke today around 9 AM and noted redness to the right lower extremity. She states that this is similar to previous episodes of cellulitis to the right lower extremity. She notes that she just feels "awful". She denies any blood in the vomit or stool. She denies any abdominal pain. No chest pain or shortness of breath. She notes a history of cholecystectomy, hysterectomy, shoulder surgery. In regard to the right lower extremity, she describes it as more of a burning sensation as there is no swelling to the area. She denies any history of DVT. 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) Osteoarthritis Surgical History H/O sinus surgery History of delivery X 1 History of cholecystectomy History of ERCP History of esophagogastroduodenoscopy (EGD) History of wisdom tooth extraction Hx of hysterectomy Family History Father Cancer Bladder cancer Mother Diabetes Aunt , 40s Stroke Other No family history of adverse response to anesthesia Social History Smoking Status: Never smoker Second Hand Exposure: Yes ( A CHILD); Hx Alcohol Use: No Hx Substance Use: No Preferred Language: Citizen Of [place] Communication Ability: Effective Home Demonstration Agent Required: No Beliefs That Will Affect Care: None Current Living Situation: Family Current Living Situation Comment: and 2 children current occupational status: employed current occupation: [employer] Other Information That Helps Us Care for You: No Feels Safe at Home: Yes Safety Concerns: Feels Safe At This Time Assistive Devices: None Review of Systems A total of 10 systems reviewed and were otherwise negative Physical Exam Vital Signs Vital Signs - 24 hr 05/19/22 12:27 05/19/22 12:31 05/19/22 13:23 Temperature 38.0 C H 37.1 C Temperature Source Temporal Artery Scan Oral Pulse Rate 102 H 97 H Pulse Rhythm Respiratory Rate 20 26 H Respiratory Effort / Characteristics Non-Labored Spontaneous Respiratory Depth Normal Respiratory Pattern Regular Blood Pressure 159/101 H Blood Pressure Mean 120 Blood Pressure Position Sitting Pulse Oximetry 95 Oxygen Delivery Method Room Air Sepsis Recent Fever Within 48 Hours Yes Sepsis New/Unexplained Change in Mental Status No Sepsis Action Taken by Nursing No Action Required 05/19/22 13:30 05/19/22 14:00 05/19/22 14:00 Temperature Temperature Source Pulse Rate 101 H 99 H Pulse Rhythm Respiratory Rate 17 20 Respiratory Effort / Characteristics Respiratory Depth Respiratory Pattern Blood Pressure 131/100 Blood Pressure Mean 110 Blood Pressure Position Pulse Oximetry Oxygen Delivery Method Sepsis Recent Fever Within 48 Hours Sepsis New/Unexplained Change in Mental Status Sepsis Action Taken by Nursing 05/19/22 15:13 05/19/22 15:13 Temperature Temperature Source Pulse Rate 103 H Pulse Rhythm Regular Respiratory Rate 16 Respiratory Effort / Characteristics Respiratory Depth Respiratory Pattern Blood Pressure Blood Pressure Mean Blood Pressure Position Pulse Oximetry 97 97 Oxygen Delivery Method Sepsis Recent Fever Within 48 Hours Sepsis New/Unexplained Change in Mental Status Sepsis Action Taken by Nursing VITAL SIGNS - Vital signs and nursing notes were reviewed. Mildly tachycardic, febrile. GENERAL -57-year-old female appearing her stated age who is in no acute distress. Communicates well with provider and answers questions appropriately. SKIN -right lower extremity, just distal to the knee does have near circumferential erythema involving most of the right calf region. No fluctuance. No crepitus. HEAD - NC/AT. EYES - PERRL with EOMI bilaterally. Sclera anicteric. EARS - No deformities of external structures noted on gross examination bilat erally. NOSE - Midline and without cyanosis. No epistaxis or purulent drainage noted. MOUTH/OROPHARYNX - Without perioral cyanosis. Buccal mucosa pink and moist and without leukoplakia. Tongue midline with equal elevation of palate bilaterally. No tonsillar hypertrophy, erythema, or exudates noted. Fair dentition noted. NECK - Neck with FROM. Supple to palpation. No lymphadenopathy noted. No nuchal rigidity. LUNGS - Chest wall symmetric without accessory muscle use, intercostals retractions, or central cyanosis. Normal vesicular breath sounds CTA B/L. No wheezes, rales, or rhonchi appreciated. CARDIAC - RRR with S1/S2. No murmur, rubs, or gallops appreciated. ABDOMEN - Abdominal contour normal without pulsations or visible masses. BS normoactive all four quadrants. No tenderness, palpable masses, hepatosplenomegaly, or ascites noted. EXTREMITIES - No clubbing or peripheral cyanosis. Skin as above. +5/5 strength noted in UE/LE bilaterally. NEUROLOGIC - Cranial nerves II through XII grossly intact. PSYCH - A&Ox3 and cooperates fully with examiner. Pt is very pleasant and intera cts well with examiner. Course Administered Medications Discontinued Medications Sodium Chloride (Nss 1000ml) 1,000 mls @ 999 mls/hr IV .Q1H1M [facility] Stop: 05/19/22 14:15 Last Infusion: 05/19/22 15:03 Dose: 0 mls/hr Documented By: Admin: 05/19/22 13:22 Dose: 999 mls/hr Documented By: HS Acetaminophen (Ofirmev) 1,000 mg in 100 mls @ 400 mls/hr IV NOW STA Stop: 05/19/22 14:37 Last Infusion: 05/19/22 15:03 Dose: 0 mls/hr Documented By: Admin: 05/19/22 14:44 Dose: 400 mls/hr Documented By: HS Ceftriaxone Sodium (Rocephin) 2,000 mg in 70 mls @ 140 mls/hr IV NOW STA Stop: 05/19/22 15:04 Last Infusion: 05/19/22 15:38 Dose: 0 mls/hr Documented By: Infusion: 05/19/22 15:30 Dose: 0 mls/hr Documented By: Admin: 05/19/22 15:09 Dose: 140 mls/hr Documented By: HARI Daptomycin 350 mg/ Syringe 7 mls @ 3.5 mls/min IV NOW STA; Protocol Stop: 05/19/22 14:36 Last Admin: 05/19/22 15:35 Dose: 3.5 mls/min Documented By: HARI Medical Decision Making Laboratory Data Result diagrams: 05/19/22 13:00 05/19/22 13:00 Lab Results 05/19/22 05/19/22 05/19/22 Range/Units 12:31 13:00 13:00 WBC 9.75 (4.8-10.8) K/ul RBC 4.87 (3.93-5.22) M/uL Hgb 13.3 (12.0-16.0) g/dl Hct 41.8 (34.1-44.9) % MCV 85.8 (80.0-100.0) fL MCH 27.3 (25.0-34.0) pg MCHC 31.8 L (32.0-36.0) g/dL RDW Std Deviation 43.7 (36.4-46.3) fL RDW Coeff of Asim 14.1 (11.5-14.5) % Plt Count 185 (130-400) K/uL MPV 9.8 (9.4-12.3) fL Immature Gran % (Auto) 0.3 % Neut % (Auto) 88.2 % Lymph % (Auto) 7.6 % Beaver % (Auto) 3.8 % Eos % (Auto) 0.0 % Baso % (Auto) 0.1 % Neut # (Auto) 8.60 H (1.4-6.5) K/uL Lymph # (Auto) 0.74 L (1.2-3.4) K/uL Beaver # (Auto) 0.37 (0.24-0.82) K/uL Eos # (Auto) 0.00 (0-0.50) K/uL Baso # (Auto) 0.01 (0-0.2) K/uL Immature Gran # (Auto) 0.03 H (0.00-0.02) K/uL PT 10.9 (9.0-12.0) Seconds INR 1.0 (0.9-1.1) APTT 30.5 (21.0-31.0) Seconds PTT Ratio 1.1 Sodium (136-145) mmol/L Potassium (3.5-5.1) mmol/L Chloride (98-107) mmol/L Carbon Dioxide (21-32) mmol/L Anion Gap (3-11) BUN (6-23) mg/dl Creatinine (0.6-1.2) mg/dl Est Cr Clr Drug Dosing ml/min Est GFR ( Amer) ml/min Est GFR (Non-Af Amer) ml/min BUN/Creatinine Ratio (10-20) Glucose (70-99(Fasting)) mg/dl Lactate (0.4-2.0) mmol/L Calcium (8.5-10.1) mg/dl Magnesium (1.7-2.4) mg/dl Total Bilirubin (0.2-1.0) mg/dl AST (13-39) U/L ALT (7-52) U/L Alkaline Phosphatase (34-104) U/L Troponin I High Sens (0-14) pg/ml Total Protein (6.0-8.3) gm/dl Albumin (3.4-5.0) gm/dl Globulin (2.5-4.0) gm/dl Albumin/Globulin Ratio (0.9-2) Procalcitonin (0-0.5) ng/ml Urine Color Yellow Urine Appearance Clear (Clear) Urine pH 6.0 (4.5-7.5) Ur Specific [place] 1.017 (1.000-1.030) Urine Protein 1+ H (Negative) Urine Glucose (UA) Negative (Negative) Urine Ketones Trace H (Negative) Urine Blood Trace H (Negative) Urine Nitrite Negative (Negative) Urine Bilirubin Negative (Negative) Urine Urobilinogen Negative (Negative) Ur Leukocyte Esterase 1+ H (Negative) Urine WBC (Auto) 5-10 H (0-5) /hpf Urine RBC (Auto) 0-4 (0-4) /hpf U Hyaline Cast (Auto) 1-5 (0-5) /lpf U Epithel Cells (Auto) >30 H (0-5) /lpf Urine Bacteria (Auto) 2+ H (Negative) Anaplasma Smear See Comment Lyme Disease IgG Ab (Negative) Lyme Disease IgM Ab (Negative) SARS-CoV-2 (PCR) (Negative) 05/19/22 05/19/22 05/19/22 Range/Units 13:00 13:00 13:00 WBC (4.8-10.8) K/ul RBC (3.93-5.22) M/uL Hgb (12.0-16.0) g/dl Hct (34.1-44.9) % MCV (80.0-100.0) fL MCH (25.0-34.0) pg MCHC (32.0-36.0) g/dL RDW Std Deviation (36.4-46.3) fL RDW Coeff of Asim (11.5-14.5) % Plt Count (130-400) K/uL MPV (9.4-12.3) fL Immature Gran % (Auto) % Neut % (Auto) % Lymph % (Auto) % Beaver % (Auto) % Eos % (Auto) % Baso % (Auto) % Neut # (Auto) (1.4-6.5) K/uL Lymph # (Auto) (1.2-3.4) K/uL [place]aver # (Auto) (0.24-0.82) K/uL Eos # (Auto) (0-0.50) K/uL Baso # (Auto) (0-0.2) K/uL Immature Gran # (Auto) (0.00-0.02) K/uL PT (9.0-12.0) Seconds INR (0.9-1.1) APTT (21.0-31.0) Seconds PTT Ratio Sodium 136 (136-145) mmol/L Potassium 3.5 (3.5-5.1) mmol/L Chloride 100 (98-107) mmol/L Carbon Dioxide 27 (21-32) mmol/L Anion Gap 9 (3-11) BUN 12 (6-23) mg/dl Creatinine 0.93 (0.6-1.2) mg/dl Est Cr Clr Drug Dosing 93.8 ml/min Est GFR ( Amer) 79.1 ml/min Est GFR (Non-Af Amer) 68.2 ml/min BUN/Creatinine Ratio 12.9 (10-20) Glucose 107 H (70-99(Fasting)) mg/dl Lactate 1.3 (0.4-2.0) mmol/L Calcium 9.2 (8.5-10.1) mg/dl Magnesium 1.9 (1.7-2.4) mg/dl Total Bilirubin 0.5 (0.2-1.0) mg/dl AST 54 H (13-39) U/L ALT 58 H (7-52) U/L Alkaline Phosphatase 52 (34-104) U/L Troponin I High Sens (0-14) pg/ml Total Protein 7.1 (6.0-8.3) gm/dl Albumin 3.8 (3.4-5.0) gm/dl Globulin 3.3 (2.5-4.0) gm/dl Albumin/Globulin Ratio 1.2 (0.9-2) Procalcitonin (0-0.5) ng/ml Urine Color Urine Appearance (Clear) Urine pH (4.5-7.5) Ur Specific [place] (1.000-1.030) Urine Protein (Negative) Urine Glucose (UA) (Negative) Urine Ketones (Negative) Urine Blood (Negative) Urine Nitrite (Negative) Urine Bilirubin (Negative) Urine Urobilinogen (Negative) Ur Leukocyte Esterase (Negative) Urine WBC (Auto) (0-5) /hpf Urine RBC (Auto) (0-4) /hpf U Hyaline Cast (Auto) (0-5) /lpf U Epithel Cells (Auto) (0-5) /lpf Urine Bacteria (Auto) (Negative) Anaplasma Smear Cancelled Lyme Disease IgG Ab (Negative) Lyme Disease IgM Ab (Negative) SARS-CoV-2 (PCR) (Negative) 05/19/22 05/19/22 05/19/22 Range/Units 13:00 13:40 13:57 WBC (4.8-10.8) K/ul RBC (3.93-5.22) M/uL Hgb (12.0-16.0) g/dl Hct (34.1-44.9) % MCV (80.0-100.0) fL MCH (25.0-34.0) pg MCHC (32.0-36.0) g/dL RDW Std Deviation (36.4-46.3) fL RDW Coeff of Asim (11.5-14.5) % Plt Count (130-400) K/uL MPV (9.4-12.3) fL Immature Gran % (Auto) % Neut % (Auto) % Lymph % (Auto) % Beaver % (Auto) % Eos % (Auto) % Baso % (Auto) % Neut # (Auto) (1.4-6.5) K/uL Lymph # (Auto) (1.2-3.4) K/uL [place] # (Auto) (0.24-0.82) K/uL Eos # (Auto) (0-0.50) K/uL Baso # (Auto) (0-0.2) K/uL Immature Gran # (Auto) (0.00-0.02) K/uL PT (9.0-12.0) Seconds INR (0.9-1.1) APTT (21.0-31.0) Seconds PTT Ratio Sodium (136-145) mmol/L Potassium (3.5-5.1) mmol/L Chloride (98-107) mmol/L Carbon Dioxide (21-32) mmol/L Anion Gap (3-11) BUN (6-23) mg/dl Creatinine (0.6-1.2) mg/dl Est Cr Clr Drug Dosing ml/min Est GFR ( Amer) ml/min Est GFR (Non-Af Amer) ml/min BUN/Creatinine Ratio (10-20) Glucose (70-99(Fasting)) mg/dl Lactate (0.4-2.0) mmol/L Calcium (8.5-10.1) mg/dl Magnesium (1.7-2.4) mg/dl Total Bilirubin (0.2-1.0) mg/dl AST (13-39) U/L ALT (7-52) U/L Alkaline Phosphatase (34-104) U/L Troponin I High Sens (0-14) pg/ml Total Protein (6.0-8.3) gm/dl Albumin (3.4-5.0) gm/dl Globulin (2.5-4.0) gm/dl Albumin/Globulin Ratio (0.9-2) Procalcitonin 1.06 H (0-0.5) ng/ml Urine Color Urine Appearance (Clear) Urine pH (4.5-7.5) Ur Specific [place] (1.000-1.030) Urine Protein (Negative) Urine Glucose (UA) (Negative) Urine Ketones (Negative) Urine Blood (Negative) Urine Nitrite (Negative) Urine Bilirubin (Negative) Urine Urobilinogen (Negative) Ur Leukocyte Esterase (Negative) Urine WBC (Auto) (0-5) /hpf Urine RBC (Auto) (0-4) /hpf U Hyaline Cast (Auto) (0-5) /lpf U Epithel Cells (Auto) (0-5) /lpf Urine Bacteria (Auto) (Negative) Anaplasma Smear Lyme Disease IgG Ab Negative (Negative) Lyme Disease IgM Ab Negative (Negative) SARS-CoV-2 (PCR) NEGATIVE (Negative) 05/19/22 Range/Units 13:57 WBC (4.8-10.8) K/ul RBC (3.93-5.22) M/uL Hgb (12.0-16.0) g/dl Hct (34.1-44.9) % MCV (80.0-100.0) fL MCH (25.0-34.0) pg MCHC (32.0-36.0) g/dL RDW Std Deviation (36.4-46.3) fL RDW Coeff of Asim (11.5-14.5) % Plt Count (130-400) K/uL MPV (9.4-12.3) fL Immature Gran % (Auto) % Neut % (Auto) % Lymph % (Auto) % [place] % (Auto) % Eos % (Auto) % Baso % (Auto) % Neut # (Auto) (1.4-6.5) K/uL Lymph # (Auto) (1.2-3.4) K/uL [place] # (Auto) (0.24-0.82) K/uL Eos # (Auto) (0-0.50) K/uL Baso # (Auto) (0-0.2) K/uL Immature Gran # (Auto) (0.00-0.02) K/uL PT (9.0-12.0) Seconds INR (0.9-1.1) APTT (21.0-31.0) Seconds PTT Ratio Sodium (136-145) mmol/L Potassium (3.5-5.1) mmol/L Chloride (98-107) mmol/L Carbon Dioxide (21-32) mmol/L Anion Gap (3-11) BUN (6-23) mg/dl Creatinine (0.6-1.2) mg/dl Est Cr Clr Drug Dosing ml/min Est GFR ( Amer) ml/min Est GFR (Non-Af Amer) ml/min BUN/Creatinine Ratio (10-20) Glucose (70-99(Fasting)) mg/dl Lactate (0.4-2.0) mmol/L Calcium (8.5-10.1) mg/dl Magnesium (1.7-2.4) mg/dl Total Bilirubin (0.2-1.0) mg/dl AST (13-39) U/L ALT (7-52) U/L Alkaline Phosphatase (34-104) U/L Troponin I High Sens 11.9 (0-14) pg/ml Total Protein (6.0-8.3) gm/dl Albumin (3.4-5.0) gm/dl Globulin (2.5-4.0) gm/dl Albumin/Globulin Ratio (0.9-2) Procalcitonin (0-0.5) ng/ml Urine Color Urine Appearance (Clear) Urine pH (4.5-7.5) Ur Specific [place] (1.000-1.030) Urine Protein (Negative) Urine Glucose (UA) (Negative) Urine Ketones (Negative) Urine Blood (Negative) Urine Nitrite (Negative) Urine Bilirubin (Negative) Urine Urobilinogen (Negative) Ur Leukocyte Esterase (Negative) Urine WBC (Auto) (0-5) /hpf Urine RBC (Auto) (0-4) /hpf U Hyaline Cast (Auto) (0-5) /lpf U Epithel Cells (Auto) (0-5) /lpf Urine Bacteria (Auto) (Negative) Anaplasma Smear Lyme Disease IgG Ab (Negative) Lyme Disease IgM Ab (Negative) SARS-CoV-2 (PCR) (Negative) Imaging Data Radiologist's Impression: Chest X-Ray 05/19/22 12:31 XR chest 1V portable CLINICAL HISTORY: Sepsis. COMPARISON STUDY: Chest radiograph November 27, 2019. FINDINGS: Lung volumes are normal. Lungs are clear. There is no pneumothorax or pleural effusion. Moderate enlargement of the cardiac silhouette is noted. Mediastinal contours are normal. There is no evidence for pulmonary edema. IMPRESSION: No acute cardiopulmonary findings. Cardiomegaly. ACT 112: Negative or not required by law. Electronically signed by: Cristiano Wilcox M.D. 05/19/2022 1:50 PM Venous Doppler Study 05/19/22 13:05 RIGHT LOWER EXTREMITY VENOUS DOPPLER HISTORY: R leg erythema COMPARISON STUDY: None. FINDINGS: There is normal compressibility, flow, and augmentation within the right lower extremity deep venous system. A few prominent right inguinal lymph nodes which demonstrate a thin cortex and normal fatty hilum likely within the range of normal limits. IMPRESSION: No DVT within the right lower extremity ACT 112: Negative or not required by law. Electronically signed by: Niko Noonan M.D. 05/19/2022 2:42 PM Abdomen/Pelvis CT 05/19/22 14:35 CT OF THE ABDOMEN AND PELVIS WITH CONTRAST CLINICAL HISTORY: nausea, vomiting, diarrhea COMPARISON STUDY: CT of the abdomen and pelvis April 12, 2017. Abdominal series November 21, 2019. TECHNIQUE: Following IV administration of 119 mL of Optiray, axial images of the abdomen and pelvis were obtained from the lung bases to the proximal femurs. Images were reviewed in the axial, sagittal, and coronal planes. IV contrast was administered without complication. Automated exposure control was utilized for the study. A dose lowering technique was utilized adhering to the principles of ALARA. FINDINGS: Lung bases are unremarkable. No pneumatosis, free air or portal venous gas is present. A small hiatal hernia is present. Mild cardiomegaly is noted. No biliary ductal dilatation status post cholecystectomy. Mild splenomegaly is similar to prior CT. Adrenal glands and pancreas are unremarkable. Left-sided parapelvic cysts are noted. Mild right renal atrophy is unchanged. There is no hydronephrosis. There are no urinary calculi. Caliber and wall thickness of small and large bowel are normal. Sigmoid diverticulosis without evidence for acute diverticulitis. The appendix is normal. No evidence for a bowel obstruction. Major vasculature is patent. Note is made of mild stranding within the right groin, adjacent to the femoral vessels. No associated fluid collection is noted. This is partially imaged. Associated prominent right inguinal lymph nodes measure up to 1.7 x 0.9 cm. No acute fracture or suspicious lesion within the visualized skeletal structures. IMPRESSION: 1. No bowel obstruction. No bowel wall thickening. Normal appendix. 2. Mild stranding within the right groin, adjacent to the femoral vessels with prominent right inguinal lymph nodes. These findings are nonspecific but favor an infectious process. No associated fluid collection. 3. Colonic diverticulosis. No evidence for acute diverticulitis. ACT 112: Negative or not required by law. Electronically signed by: Cristiano Wilcox M.D. 05/19/2022 4:[address] 05/19/22 14:35 CT OF THE HEAD WITHOUT CONTRAST CLINICAL HISTORY: headache, nausea, vomiting COMPARISON STUDY: Head CT April 15, 2022. MRI of the brain April 04, 2015. CT DOSE: 2772.53 mGy.cm TECHNIQUE: Helical axial images of the head were obtained without IV contrast. Automated exposure control was utilized for the study. A dose lowering technique was utilized adhering to the principles of ALARA. FINDINGS: No acute intracranial hemorrhage, midline shift or mass effect is present. The ventricular system is unremarkable. The basal cisterns are patent. No extra-axial collections are present. There are no findings to suggest acute dural sinus thrombosis or acute territorial infarct. No significant calvarial abnormalities are present. Old bilateral nasal bone deformity is present. Trace fluid within the left mastoid air cells. IMPRESSION: No acute intracranial findings. ACT 112: Negative or not required by law. Electronically signed by: Cristiano Wilcox M.D. 05/19/2022 4:29 PM Tibia/Fibula X-Ray 05/19/22 14:35 XR tibia fibula RT 2V HISTORY: 57 years-old Female R lower ext cellulitis acute pain and swelling of the right lower leg COMPARISON: None TECHNIQUE: 2 views of the right lower leg FINDINGS: Osteoarthritis of the knee and ankle. No acute fracture, dislocation or osseous erosion. Soft tissue swelling. IMPRESSION: No acute fracture. ACT 112: Negative or not required by law. The above report was generated using voice recognition software. It may contain grammatical, syntax or spelling errors. Electronically signed by: Magdiel Cedeno M.D. 05/19/2022 3:10 PM MDM Narrative Patient was seen and evaluated as above in room C04. Review was performed of nursing notes and vital signs. I did review pertinent previous visits and patient history. After obtaining a thorough history and physical examination the above work up was performed. Patient presents to us today with 2 days of feeling unwell, body aches, nausea, vomiting, diarrhea. She then awoke today and notes significant right lower extremity erythema which is much worse compared to previous in regard to episodes of cellulitis. On arrival she is borderline tachycardic as well as febrile. Overall she clinically appears well and nontoxic. Options of care were discussed with the patient. IV access was established. Labs were drawn. Patient already had protocols placed in triage. I did add a few orders to those. IV fluids was also ordered. With the patient noting watery diarrhea I also ordered stool studies. Ultrasound the right lower extremity was also obtained to rule out DVT. With the patient being febrile here and also upon reassessment noting a minor headache developing I did order IV acetaminophen. I did inquire with the patient whether or not she has had acetaminophen over the past couple days noting the mild transaminitis. She denies any acetaminophen use. IV acetaminophen was ordered. It is felt that the benefit outweighs risk. Labs reveal no leukocytosis or concerning anemia. No emergent metabolic disturbance. Mild transaminitis with AST of 54 and ALT of 58. Pro-Darek is mildly elevated. Urinalysis reveals what is likely a contaminated sample. Chest x-ray negative for emergent process. No DVT by ultrasound in the right lower extremity. I did empirically add IV Rocephin as well as daptomycin for coverage of the suspected right lower extremity cellulitis. No free air/soft tissue gas seen on x-ray of the right lower extremity. I do not suspect necrotizing fasciitis. I do not suspect gas- forming organism. I do believe that she would benefit from inpatient management. Case discussed with the hospitalist. I did add on a CT scan of the head as well as the abdomen/pelvis to rule out any other emergent etiology of the patient's nausea/vomiting in addition to likely secondary to the infection in the right lower extremity. Results of these as above. I also added on tickborne labs. Patient amenable to inpatient management. Please refer to fur ther documentation regarding her stay. I do not believe that she requires emergent washout of the right lower extremity or advanced imaging at this time beyond what has already been performed pending her clinical course in the inpatient setting. Case was discussed with the attending physician. EKG was reviewed by myself and found to be Normal Sinus Rhythm at a rate of 96 beats per minute and per my interpretation reveals no ST elevation. QTc 406. QRS 76. GCS: 15 In the evaluation and treatment of this patient the following differential diagnoses were entertained: Sepsis, cellulitis, necrotizing fasciitis, DVT, among others. Impression & Plan Cellulitis of right lower extremity Discharge Plan Visit Data Chief Complaint: Leg Injury/Pain Stated Complaint: CALF PAIN, RASH ED Provider: Norberto Thurston ED Midlevel Provider: Volodymyr De Santiago Discharge Problem: Cellulitis of right lower extremity Patient Disposition: Admitted As Inpatient Condition: Good Discharge Instructions Interventions: ED Discharge Assessment Last Done: 05/19/22 16:43
[2022-05-19] MEDS ORDERED: SODIUM CHLORIDE 0.9% 1000ML 1,000 ML IV SCH (13:15)
[2022-05-19 13:24] LABS: Basophils # (auto) 0.01 K/uL (0-0.2); Basophils % (auto) 0.1 %; Hematocrit (blood only) 41.8 % (34.1-44.9); Hemoglobin 13.3 g/dl (12.0-16.0); Immature Granulocytes # (auto) 0.03 K/uL (0.00-0.02); Immature Granulocytes % (auto) 0.3 %; Lymphocytes # (auto) 0.74 K/uL (1.2-3.4); Lymphocytes % (auto) 7.6 %; Mean Corpuscular Hemoglobin 27.3 pg (25.0-34.0); Mean Corpuscular Hgb Conc 31.8 g/dL (32.0-36.0); Mean Corpuscular Volume 85.8 fL (80.0-100.0); Mean Platelet Volume 9.8 fL (9.4-12.3); Monocytes # (auto) 0.37 K/uL (0.24-0.82); Monocytes % (auto) 3.8 %; Neutrophils % (auto) 88.2 %; Platelet Count 185 K/uL (130-400); RDW Coefficient of Variation 14.1 % (11.5-14.5); RDW Standard Deviation 43.7 fL (36.4-46.3); Red Blood Count 4.87 M/uL (3.93-5.22); White Blood Count 9.75 K/ul (4.8-10.8)
[2022-05-19 13:51] LABS: Appearance Urine Clear (Clear); Bacteria Urine Automated 2+ (Negative); Bilirubin Urine Negative (Negative); Blood Urine Trace (Negative); Color Urine Yellow; Epithelial Cell Urine Auto >30 /lpf (0-5); Glucose Urine UA Negative (Negative); Ketones Urine Trace (Negative); Leukocyte Esterase Urine 1+ (Negative); Nitrite Urine Negative (Negative); Protein Urine 1+ (Negative); Specific Gravity Urine 1.017 (1.000-1.030); Urobilinogen Urine Negative (Negative)
[2022-05-19 13:51] LABS: Partial Thromboplastin Ratio 1.1; Partial Thromboplastin Time 30.5 Seconds (21.0-31.0); Prothrombin Time 10.9 Seconds (9.0-12.0)
--- NOTE | 2022-05-19 13:52 | XRay Report ---
XR chest 1V portable CLINICAL HISTORY: Sepsis. COMPARISON STUDY: Chest radiograph November 27, 2019. FINDINGS: Lung volumes are normal. Lungs are clear. There is no pneumothorax or pleural effusion. Mod erate enlargement of the cardiac silhouette is noted. Mediastinal contours are normal. There is no ev idence for pulmonary edema. IMPRESSION: No acute cardiopulmonary findings. Cardiomegaly. ACT 112: Negative or not required by law. Electronically signed by: Cristiano Wilcox M.D. 05/19/2022 1:50 PM
[2022-05-19 13:54] LABS: Albumin Globulin Ratio 1.2 (0.9-2); Albumin Level 3.8 gm/dl (3.4-5.0); BUN Creatinine Ratio 12.9 (10-20); Bilirubin,Total 0.5 mg/dl (0.2-1.0); Calcium 9.2 mg/dl (8.5-10.1); Creatinine Clr Calc Pharmacy 93.8 ml/min; Est GFR (African American) 79.1 ml/min; Est GFR (Non-African American) 68.2 ml/min; Globulin 3.3 gm/dl (2.5-4.0); Magnesium 1.9 mg/dl (1.7-2.4); Potassium 3.5 mmol/L (3.5-5.1); Total Protein 7.1 gm/dl (6.0-8.3)
[2022-05-19 14:09] LABS: RBC Urine Automated 0-4 /hpf (0-4)
[2022-05-19] MEDS ORDERED: ACETAMINOPHEN 1,000 MG/100 ML VIAL IV STA (14:23)
[2022-05-19] MEDS ORDERED: cefTRIAXone SODIUM 2,000 MG/70 ML BAG IV STA (14:35)
[2022-05-19] MEDS ORDERED: DAPTOmycin 350 MG in SYRINGE 0 ML IV STA (14:35)
--- NOTE | 2022-05-19 14:43 | Ultrasound Report ---
RIGHT LOWER EXTREMITY VENOUS DOPPLER HISTORY: R leg erythema COMPARISON STUDY: None. FINDINGS: There is normal compressibility, flow, and augmentation within the right lower extremity de ep venous system. A few prominent right inguinal lymph nodes which demonstrate a thin cortex and norm al fatty hilum likely within the range of normal limits. IMPRESSION: No DVT within the right lower extremity ACT 112: Negative or not required by law. Electronically signed by: Niko Noonan M.D. 05/19/2022 2:42 PM
--- NOTE | 2022-05-19 15:11 | XRay Report ---
XR tibia fibula RT 2V HISTORY: 57 years-old Female R lower ext cellulitis acute pain and swelling of the right lower leg COMPARISON: None TECHNIQUE: 2 views of the right lower leg FINDINGS: Osteoarthritis of the knee and ankle. No acute fracture, dislocation or osseous erosion. Soft tissue swelling. IMPRESSION: No acute fracture. ACT 112: Negative or not required by law. The above report was generated using voice recognition software. It may contain grammatical, syntax o r spelling errors. Electronically signed by: Magdiel Cedeno M.D. 05/19/2022 3:10 PM
--- NOTE | 2022-05-19 15:27 | History & Physical Report ---
Date of Service May 19, 2022 Assessment & Plan (1) Sepsis: Plan: This is a 57-year-old female with PMH of fibromyalgia, depression and other medical problems listed below who presents with RLE cellulitis and UTI meeting criteria for sepsis. Febrile at 38 C, tachycardic at 103 meeting sepsis criteria. Leukocytosis and lactate WNL. Procalcitonin elevated at 1.06 In setting of RLE cellulitis and UTI Recevied 1 L NSS in ED. BP normotensive Follow blood and urine cultures Continue empiric Rocephin and Dapto (2) Cellulitis of right lower extremity: Plan: H/o cellulitis in the past. Recently treated for LLE cellulitis in late March 2022, completed Keflex course Tib/fib XR without evidence of fracture Venous doppler without evidence of DVT Continue empiric abx (3) UTI (urinary tract infection), uncomplicated: Plan: UA abnormal. Continue empiric abx. Follow urine culture (4) Transaminitis: Plan: AST 54, ALT 58, alk phos WNL History of fatty liver per chart review but normal LFTs in Epic system from Jul 2021 Need to rule out tick borne illness- lyme and anaplasma serology pending CT abd/pelvis ordered in ED - pending (5) Obesity, morbid, BMI 50 or higher: Plan: Weight loss recommended. Will obtain a1c in AM. Lipid panel from Jul 2021 WNL DVT Ppx: SQ Lovenox Code status: FULL PCP: Brynn Dispo: Admitted to PCU Patient seen in collaboration with Dr. Colin. Please see addendum. History of Present Illness Chief Complaint: Leg redness, nausea vomiting Primary Care Provider: Mendel Swain MD This is a 57-year-old female with PMH of fibromyalgia, depression and other medical problems listed below who presents with fever, nausea and vomiting as well as right lower extremity redness over the past few days. Was seen in the ER at the end of March for LLE cellulitis and discharged on 7-d course of Keflex. Two days ago, patient became nauseous and had multiple bouts of emesis. Also started to have diarrhea and chills. Was extremely fatigued and slept all day yesterday. When she woke up today, she noticed redness and swelling of right lower extremity that was not there previously. Denies any tick exposure. No open wounds. Denies any chest pain, palpitations, shortness of breath, abdominal pain, dysuria or constipation. Does not take any home meds regularly. 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) Osteoarthritis Surgical History H/O sinus surgery History of delivery X 1 History of cholecystectomy History of ERCP History of esophagogastroduodenoscopy (EGD) History of wisdom tooth extraction Hx of hysterectomy Family History Father Cancer Bladder cancer Mother Diabetes Aunt , 40s Stroke Other No family history of adverse response to anesthesia Social History Smoking Status: Never smoker Second Hand Exposure: Yes ( A CHILD); Hx Alcohol Use: No Hx Substance Use: No Preferred Language: Iranian Communication Ability: Effective 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 Physical Exam Physical Exam: General Appearance: WD/WN, vitals as above, NAD, lying in bed, pleasant, obese Head: normocephalic, atraumatic Eyes: normal inspection, PERRL, conjunctivae normal, anicteric sclerae ENT: external ear and nose normal, oropharynx normal Neck: normal visual inspection, trachea midline, no thyromegaly Respiratory: normal respiratory effort, lungs clear to auscultation, no wheeze, rales, rhonchi. No accessory muscle use Cardiovascular: regular rate, rhythm, no murmur, normal peripheral pulses, no BLE edema. Vessels: no JVD Chest: normal inspection of chest Abdomen/GI: normal bowel sounds, soft, nontender, no hepatosplenomegaly Extremities/Musculoskeletal: RLE with erythema wrapping around to posterior calf area. Warm to touch, no open wounds. No cyanosis or clubbing, extremities motor strength 5/5 Neurologic: PERRL, EOMI, accommodation nl, no face palsy, no dysarthria, CN's II-XI intact bilaterally and moves all extremities Psychiatric: A+Ox3, euthymic affect Skin: no rashes, normal color, warm/dry Results & Data Results & Data ([facility]) Vital Signs (Past 12 Hours) Vital Signs Temp Pulse Resp BP Pulse Ox O2 Del Method 05/19/22 15:13 103 H 16 97 05/19/22 15:13 97 05/19/22 14:00 99 H 20 05/19/22 14:00 131/100 05/19/22 13:30 101 H 17 05/19/22 13:23 97 H 26 H 05/19/22 12:31 37.1 C 05/19/22 12:27 38.0 C H 102 H 20 159/101 H 95 Room Air Laboratory Results Short CBC 05/19/22 Range/Units 13:00 WBC 9.75 (4.8-10.8) K/ul Hgb 13.3 (12.0-16.0) g/dl Hct 41.8 (34.1-44.9) % Plt Count 185 (130-400) K/uL BMP 05/19/22 13:00 Sodium 136 Potassium 3.5 Chloride 100 Carbon Dioxide 27 BUN 12 Creatinine 0.93 Glucose 107 H Calcium 9.2 Liver Function 05/19/22 Range/Units 13:00 Total Bilirubin 0.5 (0.2-1.0) mg/dl AST 54 H (13-39) U/L ALT 58 H (7-52) U/L Alkaline Phosphatase 52 (34-104) U/L Albumin 3.8 (3.4-5.0) gm/dl Urine 05/19/22 Range/Units 12:31 Urine Color Yellow Urine Appearance Clear (Clear) Urine pH 6.0 (4.5-7.5) Ur Specific [place] 1.017 (1.000-1.030) Urine Protein 1+ H (Negative) Urine Glucose (UA) Negative (Negative) Diagnostic Findings Chest X-Ray 05/19/22 12:31 XR chest 1V portable CLINICAL HISTORY: Sepsis. COMPARISON STUDY: Chest radiograph November 27, 2019. FINDINGS: Lung volumes are normal. Lungs are clear. There is no pneumothorax or pleural effusion. Moderate enlargement of the cardiac silhouette is noted. Mediastinal contours are normal. There is no evidence for pulmonary edema. IMPRESSION: No acute cardiopulmonary findings. Cardiomegaly. ACT 112: Negative or not required by law. Electronically signed by: Cristiano Wilcox M.D. 05/19/2022 1:50 PM Venous Doppler Study 05/19/22 13:05 RIGHT LOWER EXTREMITY VENOUS DOPPLER HISTORY: R leg erythema COMPARISON STUDY: None. FINDINGS: There is normal compressibility, flow, and augmentation within the right lower extremity deep venous system. A few prominent right inguinal lymph nodes which demonstrate a thin cortex and normal fatty hilum likely within the range of normal limits. IMPRESSION: No DVT within the right lower extremity ACT 112: Negative or not required by law. Electronically signed by: Niko Noonan M.D. 05/19/2022 2:42 PM Tibia/Fibula X-Ray 05/19/22 14:35 XR tibia fibula RT 2V HISTORY: 57 years-old Female R lower ext cellulitis acute pain and swelling of the right lower leg COMPARISON: None TECHNIQUE: 2 views of the right lower leg FINDINGS: Osteoarthritis of the knee and ankle. No acute fracture, dislocation or osseous erosion. Soft tissue swelling. IMPRESSION: No acute fracture. ACT 112: Negative or not required by law. The above report was generated using voice recognition software. It may contain grammatical, syntax or spelling errors. Electronically signed by: Magdiel Cedeno M.D. 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 Patient was found to have RLE cellulitis and UTI and met sepsis criteria on presentation. Admitting imagings including RLE x-ray, head CT, venous Doppler RLE and CXR reviewed without acute findings. Temperature was elevated and Pro-Darek positive with increased heart rate at presentation. Admitting labs reviewed. EKG WNL. Lyme negative. Patient was started on empiric Rocephin and Dapto in the ED, will continue with the same, await blood culture. Follow admitting urine culture. For transaminitis, trend CMP. For morbid obesity, patient counseled regarding healthy lifestyle and weight loss. Patient sounds motivated. Due to recurrent lower extremity cellulitis, consider consulting infectious disease or at least have her follow-up with ID as an outpatient. Left great toenail fungal infection, podiatry as an outpatient. Upon examination: GENERAL: Alert and oriented x3. NAD, on RA. Morbidly obese. HEENT: No pallor, no icterus. Pupils equal, round and reactive to light. Oral mucosa moist. NECK: No JVD, no neck masses. HEART: S1 and S2 heard. Regular rate and rhythm. No murmur, no gallop. RESPIRATORY SYSTEM: Normal AP diameter. No accessory muscle use. No wheezing, no crackles. ABDOMEN: Soft, bowel sounds present, nontender, no distention. CENTRAL NERVOUS SYSTEM: No facial droop. Speech is clear. Obeys simple co mmands. Moves extremities. EXTREMITIES: No edema, RLE erythema extending from foot to whole of leg posteriorly and 2/3rd of leg anteriorly. I have seen and examined the patient and have discussed the case with the provider above. I agree with the assessment and plan as stated.
[2022-05-19 15:53] LABS: Lyme Ab IgG w/WB Rflx Negative (Negative); Lyme Ab IgM w/WB Rflx Negative (Negative)
[2022-05-19] MEDS ORDERED: OPTIRAY 320 125ml IV ONE (16:02)
--- NOTE | 2022-05-19 16:31 | CT Scan Report ---
CT OF THE HEAD WITHOUT CONTRAST CLINICAL HISTORY: headache, nausea, vomiting COMPARISON STUDY: Head CT April 15, 2022. MRI of the brain April 04, 2015. CT DOSE: 2772.53 mGy.cm TECHNIQUE: Helical axial images of the head were obtained without IV contrast. Automated exposure con trol was utilized for the study. A dose lowering technique was utilized adhering to the principles o f ALARA. FINDINGS: No acute intracranial hemorrhage, midline shift or mass effect is present. The ventricular system is unremarkable. The basal cisterns are patent. No extra-axial collections are present. There are no findings to suggest acute dural sinus thrombosis or acute territorial infarct. No significant calvarial abnormalities are present. Old bilateral nasal bone deformity is present. Trace fluid withi n the left mastoid air cells. IMPRESSION: No acute intracranial findings. ACT 112: Negative or not required by law. Electronically signed by: Cristiano Wilcox M.D. 05/19/2022 4:29 PM
--- NOTE | 2022-05-19 16:38 | CT Scan Report ---
CT OF THE ABDOMEN AND PELVIS WITH CONTRAST CLINICAL HISTORY: nausea, vomiting, diarrhea COMPARISON STUDY: CT of the abdomen and pelvis April 12, 2017. Abdominal series November 21, 2019. TECHNIQUE: Following IV administration of 119 mL of Optiray, axial images of the abdomen and pelvis w ere obtained from the lung bases to the proximal femurs. Images were reviewed in the axial, sagittal, and coronal planes. IV contrast was administered without complication. Automated exposure control w as utilized for the study. A dose lowering technique was utilized adhering to the principles of JOHN Mauro. FINDINGS: Lung bases are unremarkable. No pneumatosis, free air or portal venous gas is present. A sm all hiatal hernia is present. Mild cardiomegaly is noted. No biliary ductal dilatation status post ch olecystectomy. Mild splenomegaly is similar to prior CT. Adrenal glands and pancreas are unremarkable . Left-sided parapelvic cysts are noted. Mild right renal atrophy is unchanged. There is no hydroneph rosis. There are no urinary calculi. Caliber and wall thickness of small and large bowel are normal. Sigmoid diverticulosis without evidence for acute diverticulitis. The appendix is normal. No evidence for a bowel obstruction. Major vasculature is patent. Note is made of mild stranding within the righ t groin, adjacent to the femoral vessels. No associated fluid collection is noted. This is partially imaged. Associated prominent right inguinal lymph nodes measure up to 1.7 x 0.9 cm. No acute fracture or suspicious lesion within the visualized skeletal structures. IMPRESSION: 1. No bowel obstruction. No bowel wall thickening. Normal appendix. 2. Mild stranding within the right groin, adjacent to the femoral vessels with prominent right inguin al lymph nodes. These findings are nonspecific but favor an infectious process. No associated fluid c ollection. 3. Colonic diverticulosis. No evidence for acute diverticulitis. ACT 112: Negative or not required by law. Electronically signed by: Cristiano Wilcox M.D. 05/19/2022 4:37 PM
[2022-05-19] MEDS ORDERED: ONDANSETRON INJ 2 MG/ML 2 ML VIAL IV PRN (17:06)
[2022-05-19] MEDS ORDERED: POLYETHYLENE (MIRALAX) 17 GM PACK PO PRN (17:06)
[2022-05-19] MEDS: ENOXAPARIN INJ 40 MG/0.4 ML SYR SQ SCH (17:59)
--- NOTE | 2022-05-19 18:09 | Electrocardiogram Report ---
Test Reason : Blood Pressure : / mmHG Vent. Rate : 096 BPM Atrial Rate : 096 BPM P-R Int : 130 ms QRS Dur : 076 ms QT Int : 322 ms P-R-T Axes : -13 031 030 degrees QTc Int : 406 ms Normal sinus rhythm Nonspecific ST abnormality Abnormal ECG When compared with ECG of 21-NOV-2019 06:22, No significant change was found Confirmed by Julio Lundberg ([id number]) on 05/19/2022 6:08:50 PM Referred By: REFERRED SELF Confirmed By:Linwood Lundberg
[2022-05-19] MEDS ORDERED: DAPTOmycin 200 MG in SYRINGE 0 ML IV ONE (18:30)
[2022-05-19 21:42] LABS: Adenovirus F 40/41 PCR Not Detected (NotDetected); Astrovirus PCR Not Detected (NotDetected); Campylobacter PCR Not Detected (NotDetected); Clostridium diff Toxin A/B PCR Not Detected (NotDetected); Cryptosporidium PCR Not Detected (NotDetected); Cyclospora cayetanensis PCR Not Detected (NotDetected); Entamoeba histolytica PCR Not Detected (NotDetected); Enteroaggregative E.coli(EAEC) Not Detected (NotDetected); Enteropathogenic E.coli (EPEC) Not Detected (NotDetected); Enterotoxigenic E.coli (ETEC) Not Detected (NotDetected); Giardia lamblia PCR Not Detected (NotDetected); Norovirus GI/GII PCR Not Detected (NotDetected); Plesiomonas shigelloides PCR Not Detected (NotDetected); Rotavirus A PCR Not Detected (NotDetected); Salmonella PCR Not Detected (NotDetected); Sapovirus PCR Not Detected (NotDetected); Shiga-like Toxin E.coli (STEC) Not Detected (NotDetected); Shigella/Enteroinvasive E.coli Not Detected (NotDetected); Vibrio cholerae PCR Not Detected (NotDetected); Vibrio species PCR Not Detected (NotDetected); Yersinia enterocolitica PCR Not Detected (NotDetected)
[2022-05-19] MEDS: ACETAMINOPHEN 325 MG TAB PO PRN (22:31)
[2022-05-19] MEDS ORDERED: PROMETHAZINE HCL 12.5 MG in SODIUM CHLORIDE 0.9% 50 ML IV PRN (22:47)
[2022-05-19] MEDS ORDERED: LOPERAMIDE HCL 2 MG CAP PO PRN (22:48)
[2022-05-20 06:44] LABS: Hematocrit (blood only) 37.3 % (34.1-44.9); Hemoglobin 12.1 g/dl (12.0-16.0); Mean Corpuscular Hemoglobin 27.6 pg (25.0-34.0); Mean Corpuscular Hgb Conc 32.4 g/dL (32.0-36.0); Mean Platelet Volume 9.9 fL (9.4-12.3); Platelet Count 164 K/uL (130-400); RDW Standard Deviation 43.8 fL (36.4-46.3); Red Blood Count 4.39 M/uL (3.93-5.22); White Blood Count 5.88 K/ul (4.8-10.8)
[2022-05-20 07:12] LABS: BUN Creatinine Ratio 13.8 (10-20); Calcium 8.5 mg/dl (8.5-10.1); Creatinine Clr Calc Pharmacy 109.3 ml/min; Est GFR (African American) 94.9 ml/min; Est GFR (Non-African American) 81.8 ml/min; Potassium 3.4 mmol/L (3.5-5.1)
[2022-05-20] MEDS: ACETAMINOPHEN 325 MG TAB PO PRN (08:34)
[2022-05-20] MEDS: cefTRIAXone SODIUM 2,000 MG in DEXTROSE 5% 50 ML IV SCH (08:35)
[2022-05-20] MEDS ORDERED: POTASSIUM CHLORIDE CRTAB 20 MEQ TABCR PO STA (08:49)
[2022-05-20] MEDS: DAPTOmycin 550 MG in SYRINGE 0 ML IV SCH (15:54)
--- NOTE | 2022-05-20 16:11 | Hospitalist Progress Note ---
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 Patient was also found to have UTI at presentation. At presentation, febrile with temperature of 38C, tachycardic but white cell and lactate WNL. Procalcitonin elevated at 1.06. Admitting imagings including RLE x-ray, head CT, venous Doppler RLE and CXR reviewed without acute findings. Patient started on Rocephin and daptomycin in the ED 05/19, will continue with the same. Follow-up with admitting blood culture and urine culture. Patient afebrile since noon yesterday, pulse improving, WBC WNL, RLE erythema improving but pain around the same. Obtain baseline CPK level, CPK weekly while on Dapto. Once pain/erythema improves consider de-escalating to p.o. antibiotics. Transaminitis: Mild at presentation, trend. Consider hepatitis panel if uptrending. Admitting CTAP with no acute findings. Obesity, morbid: Weight loss recommended, offered dietitian consult, declined. A1c in AM. Lipid panel from July 2021 WNL. DVT Ppx: SQ Lovenox Code status: FULL PCP: Brynn Dispo: Admitted to PCU, can be DG'd to med/surg. Admission and Anticipated Discharge Date Admission Date: May 19, 2022 Subjective Patient seen and examined at bedside for follow-up of sepsis POA, RLE cellulitis, UTI, transaminitis. Patient was lying in bed, on room air, NAD, reports pain in RLE overnight but only on Tylenol, will increase pain medications until her infection gets better. Patient reports eating okay and moving loose bowels. Stool PCR was negative. Patient denies headache or dizziness or sore throat or cough or chest pain or belly pain or other review of symptoms. Physical Exam Physical Exam: GENERAL: Alert and oriented x3. NAD, on RA. Morbidly obese. HEENT: No pallor, no icterus. Pupils equal, round and reactive to light. Oral mucosa moist. NECK: No JVD, no neck masses. HEART: S1 and S2 heard. Regular rate and rhythm. No murmur, no gallop. RESPIRATORY SYSTEM: Normal AP diameter. No accessory muscle use. No wheezing, no crackles. ABDOMEN: Soft, bowel sounds present, nontender, no distention. CENTRAL NERVOUS SYSTEM: No facial droop. Speech is clear. Obeys simple commands. Moves extremities. EXTREMITIES: No edema, RLE erythema extending from foot to whole of leg posteriorly and 2/3rd of leg anteriorly--->improving, tender +. Results & Data Results & Data ([facility]) Vital Signs (Past 12 Hours) Vital Signs Temp Pulse Resp BP Pulse Ox O2 Del Method 05/20/22 15:52 36.8 C 82 18 101/61 96 Room Air 05/20/22 11:30 37.3 C 100 H 20 129/83 100 Room Air 05/20/22 08:22 37.1 C 92 H 19 136/87 94 Room Air 05/20/22 04:55 37.1 C 88 20 122/85 94 Room Air
[2022-05-20] MEDS: ENOXAPARIN INJ 40 MG/0.4 ML SYR SQ SCH (16:24)
[2022-05-20] MEDS: KETOROLAC TROMETHAMINE 15 MG/ML VIAL IV PRN (21:46)
[2022-05-21 07:56] LABS: Hematocrit (blood only) 40.9 % (34.1-44.9); Hemoglobin 13.3 g/dl (12.0-16.0); Mean Corpuscular Hemoglobin 27.4 pg (25.0-34.0); Mean Corpuscular Hgb Conc 32.5 g/dL (32.0-36.0); Mean Corpuscular Volume 84.3 fL (80.0-100.0); Platelet Count 195 K/uL (130-400); RDW Coefficient of Variation 14.1 % (11.5-14.5); RDW Standard Deviation 43.3 fL (36.4-46.3); Red Blood Count 4.85 M/uL (3.93-5.22); White Blood Count 4.16 K/ul (4.8-10.8)
[2022-05-21 08:18] LABS: Albumin Level 3.6 gm/dl (3.4-5.0); BUN Creatinine Ratio 15.4 (10-20); Bilirubin,Total 0.3 mg/dl (0.2-1.0); Calcium 9.1 mg/dl (8.5-10.1); Creatinine Clr Calc Pharmacy 112.1 ml/min; Est GFR (African American) 97.8 ml/min; Est GFR (Non-African American) 84.4 ml/min; Potassium 3.9 mmol/L (3.5-5.1); Total Protein 6.8 gm/dl (6.0-8.3)
[2022-05-21] MEDS: cefTRIAXone SODIUM 2,000 MG in DEXTROSE 5% 50 ML IV SCH (09:07)
[2022-05-21] MEDS: DAPTOmycin 550 MG in SYRINGE 0 ML IV SCH (16:49)
[2022-05-21] MEDS: ENOXAPARIN INJ 40 MG/0.4 ML SYR SQ SCH (17:19)
--- NOTE | 2022-05-21 19:06 | Hospitalist Progress Note ---
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 Patient was also found to have UTI at presentation. At presentation, febrile with temperature of 38C, tachycardic but white cell and lactate WNL. Procalcitonin elevated at 1.06. Admitting imagings including RLE x-ray, head CT, venous Doppler RLE and CXR reviewed without acute findings. Patient started on Rocephin and daptomycin in the ED 05/19, will continue with the same. Follow-up with admitting blood culture and urine culture. Patient afebrile since noon yesterday, pulse improving, WBC WNL, RLE erythema improving but pain around the same. Obtain baseline CPK level, CPK weekly while on Dapto. Once pain/erythema improves consider de-escalating to p.o. antibiotics. Transaminitis: Mild at presentation, trend. Consider hepatitis panel if uptrending. Admitting CTAP with no acute findings. Obesity, morbid: Weight loss recommended, offered dietitian consult, declined. A1c in AM. Lipid panel from July 2021 WNL. 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 Patient was found to have RLE cellulitis and UTI and met sepsis criteria on presentation. Being treated for RLE cellulitis with IV antibiotics with improvement. Patient was lying in bed, on room air, NAD, reports pain in RLE overnight but only on Tylenol, but pain improved. Patient reports eating okay. Patient denies headache or dizziness or sore throat or cough or chest pain or belly pain or other review of symptoms. Review of Systems Review of Systems: At least ten systems reviewed and negative except as noted in the HPI. Physical Exam Physical Exam: GENERAL: Alert and oriented x3. NAD, on RA. Morbidly obese. HEENT: No pallor, no icterus. Pupils equal, round and reactive to light. Oral mucosa moist. NECK: No JVD, no neck masses. HEART: S1 and S2 heard. Regular rate and rhythm. No murmur, no gallop. RESPIRATORY SYSTEM: Normal AP diameter. No accessory muscle use. No wheezing, no crackles. ABDOMEN: Soft, bowel sounds present, nontender, no distention. CENTRAL NERVOUS SYSTEM: No facial droop. Speech is clear. Obeys simple commands. Moves extremities. EXTREMITIES: No edema, RLE erythema extending from foot to whole of leg posteriorly and 2/3rd of leg anteriorly--->improving, tender + Results & Data Results & Data ([facility]) Vital Signs (Past 12 Hours) Vital Signs Temp Pulse Resp BP Pulse Ox O2 Del Method 05/21/22 15:51 36.7 C 89 18 142/92 H 97 Room Air 05/21/22 07:22 36.9 C 97 H 22 139/94 97 Room Air Laboratory Results Short CBC 05/21/22 Range/Units 07:40 WBC 4.16 L (4.8-10.8) K/ul Hgb 13.3 (12.0-16.0) g/dl Hct 40.9 (34.1-44.9) % Plt Count 195 (130-400) K/uL BMP 05/21/22 07:40 Sodium 139 Potassium 3.9 Chloride 107 Carbon Dioxide 24 BUN 12 Creatinine 0.78 Glucose 110 H Calcium 9.1 Liver Function 05/21/22 Range/Units 07:40 Total Bilirubin 0.3 (0.2-1.0) mg/dl Direct Bilirubin 0.0 (0-0.2) mg/dl AST 33 (13-39) U/L ALT 52 (7-52) U/L Alkaline Phosphatase 44 (34-104) U/L Albumin 3.6 (3.4-5.0) gm/dl Medications Administered Current Inpatient Medications Acetaminophen (Acetaminophen 325 Mg Tab) 650 mg PO Q4H PRN PRN Reason: Pain or Fever Stop: 06/18/22 17:05 Last Admin: 05/20/22 08:34 Dose: 650 mg Enoxaparin Sodium (Enoxaparin Inj 40 Mg/0.4 Ml Syr) 40 mg SQ Q24H ADELITA Stop: 06/18/22 17:05 Last Admin: 05/21/22 17:19 Dose: 40 mg Ceftriaxone Sodium 2,000 mg/ (Dextrose) 70 mls @ 100 mls/hr IV DAILY ADELITA; Protocol Stop: 05/27/22 08:59 Last Infusion: 05/21/22 10:10 Dose: Infused Daptomycin 550 mg/ Syringe 11 mls @ 5.5 mls/min IV DAILY@1600 ADELITA; Protocol Stop: 05/26/22 15:59 Last Admin: 05/21/22 16:49 Dose: 5.5 mls/min Promethazine HCl 12.5 mg/ (Sodium Chloride) 50.5 mls @ 202 mls/hr IV Q6H PRN PRN Reason: Nausea And Vomiting Stop: 06/18/22 22:46 Last Infusion: 05/19/22 23:57 Dose: Infused Ketorolac Tromethamine (Ketorolac Tromethamine 15 Mg/Ml Vial) 15 mg IV Q6H PRN PRN Reason: Severe Pain Stop: 05/25/22 16:20 Last Admin: 05/20/22 21:46 Dose: 15 mg Loperamide HCl (Loperamide Hcl 2 Mg Cap) 2 mg PO UD PRN PRN Reason: Diarrhea Stop: 06/18/22 22:47 Ondansetron HCl (Ondansetron Inj 2 Mg/Ml 2 Ml Vial) 4 mg IV Q6H PRN PRN Reason: Nausea Stop: 06/18/22 17:05 Polyethylene Glycol (Polyethylene (Miralax) 17 Gm Pack) 17 gm PO DAILY PRN PRN Reason: Constipation Stop: 06/18/22 17:05
[2022-05-22 07:46] LABS: Creatinine Clr Calc Pharmacy 124.9 ml/min; Est GFR (African American) 111.5 ml/min; Est GFR (Non-African American) 96.2 ml/min
[2022-05-22] MEDS: cefTRIAXone SODIUM 2,000 MG in DEXTROSE 5% 50 ML IV SCH (07:49)
[2022-05-22] MEDS: KETOROLAC TROMETHAMINE 15 MG/ML VIAL IV PRN (07:49)
[2022-05-22] MEDS: DAPTOmycin 550 MG in SYRINGE 0 ML IV SCH (16:04)
[2022-05-22] MEDS: ENOXAPARIN INJ 40 MG/0.4 ML SYR SQ SCH (16:05)
[2022-05-22] MEDS ORDERED: CLOTRIMAZOLE 1% CR 15 GM TUBE EXT PRN (16:22)
--- NOTE | 2022-05-22 16:24 | Hospitalist Progress Note ---
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 Patient was also found to have UTI at presentation. At presentation, febrile with temperature of 38C, tachycardic but white cell and lactate WNL. Procalcitonin elevated at 1.06. Admitting imagings including RLE x-ray, head CT, venous Doppler RLE and CXR reviewed without acute findings. - Patient started on Rocephin and daptomycin in the ED 05/19 - all cultures negative - will d/c dapto since no evidence of purulence and step coverage should be adequate - monitor response - erythema and pain much improved - continue IV abx for now pending further resolution - then switch to PO when ready for DC Transaminitis: Mild at presentation, trend. Consider hepatitis panel if uptrending. Admitting CTAP with no acute findings. Obesity, morbid: Weight loss recommended, offered dietitian consult, declined. A1c in AM. Lipid panel from July 2021 WNL. 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 Patient was found to have RLE cellulitis and UTI and met sepsis criteria on presentation. Being treated for RLE cellulitis with IV antibiotics with improvement. Patient was lying in bed, on room air, NAD. Pain and redness have markedly improved overnight. Patient reports eating well. Patient denies headache or dizziness or sore throat or cough or chest pain or belly pain or other review of symptoms. Review of Systems Review of Systems: At least ten systems reviewed and negative except as noted in the HPI. Physical Exam Physical Exam: GENERAL: Alert and oriented x3. NAD, on RA. Morbidly obese. HEENT: No pallor, no icterus. Pupils equal, round and reactive to light. Oral mucosa moist. NECK: No JVD, no neck masses. HEART: S1 and S2 heard. Regular rate and rhythm. No murmur, no gallop. RESPIRATORY SYSTEM: Normal AP diameter. No accessory muscle use. No wheezing, no crackles. ABDOMEN: Soft, bowel sounds present, nontender, no distention. CENTRAL NERVOUS SYSTEM: No facial droop. Speech is clear. Obeys simple commands. Moves extremities. EXTREMITIES: No edema, RLE erythema improved and now onlyon lateral anterior aspect and upper posterior calf but much improved since yesterday Results & Data Results & Data ([facility]) Vital Signs (Past 12 Hours) Vital Signs Temp Pulse Resp BP Pulse Ox O2 Del Method 05/22/22 07:35 36.4 C L 85 18 114/76 94 Room Air Laboratory Results BMP 05/22/22 06:33 Creatinine 0.70 Medications Administered Current Inpatient Medications Acetaminophen (Acetaminophen 325 Mg Tab) 650 mg PO Q4H PRN PRN Reason: Pain or Fever Stop: 06/18/22 17:05 Last Admin: 05/20/22 08:34 Dose: 650 mg Enoxaparin Sodium (Enoxaparin Inj 40 Mg/0.4 Ml Syr) 40 mg SQ Q24H ADELITA Stop: 06/18/22 17:05 Last Admin: 05/22/22 16:05 Dose: 40 mg Ceftriaxone Sodium 2,000 mg/ (Dextrose) 70 mls @ 100 mls/hr IV DAILY [facility]; Protocol Stop: 05/27/22 08:59 Last Infusion: 05/22/22 09:16 Dose: Infused Daptomycin 550 mg/ Syringe 11 mls @ 5.5 mls/min IV DAILY@1600 ADELITA; Protocol Stop: 05/26/22 15:59 Last Admin: 05/22/22 16:04 Dose: 5.5 mls/min Promethazine HCl 12.5 mg/ (Sodium Chloride) 50.5 mls @ 202 mls/hr IV Q6H PRN PRN Reason: Nausea And Vomiting Stop: 06/18/22 22:46 Last Infusion: 05/19/22 23:57 Dose: Infused Ketorolac Tromethamine (Ketorolac Tromethamine 15 Mg/Ml Vial) 15 mg IV Q6H PRN PRN Reason: Severe Pain Stop: 05/25/22 16:20 Last Admin: 05/22/22 07:49 Dose: 15 mg Loperamide HCl (Loperamide Hcl 2 Mg Cap) 2 mg PO UD PRN PRN Reason: Diarrhea Stop: 06/18/22 22:47 Ondansetron HCl (Ondansetron Inj 2 Mg/Ml 2 Ml Vial) 4 mg IV Q6H PRN PRN Reason: Nausea Stop: 06/18/22 17:05 Last Admin: 05/22/22 07:57 Dose: 4 mg Polyethylene Glycol (Polyethylene (Miralax) 17 Gm Pack) 17 gm PO DAILY PRN PRN Reason: Constipation Stop: 06/18/22 17:05
[2022-05-23 07:14] LABS: Albumin Globulin Ratio 1.2 (0.9-2); Albumin Level 3.2 gm/dl (3.4-5.0); BUN Creatinine Ratio 21.6 (10-20); Bilirubin,Total 0.3 mg/dl (0.2-1.0); Calcium 8.4 mg/dl (8.5-10.1); Creatinine Clr Calc Pharmacy 118.1 ml/min; Est GFR (African American) 104.2 ml/min; Est GFR (Non-African American) 89.9 ml/min; Globulin 2.6 gm/dl (2.5-4.0); Magnesium 2.1 mg/dl (1.7-2.4); Potassium 4.5 mmol/L (3.5-5.1); Total Protein 5.8 gm/dl (6.0-8.3)
[2022-05-23] MEDS: cefTRIAXone SODIUM 2,000 MG in DEXTROSE 5% 50 ML IV SCH (07:44)
[2022-05-23 09:02] LABS: Basophils # (auto) 0.01 K/uL (0-0.2); Basophils % (auto) 0.2 %; Eosinophils # (auto) 0.08 K/uL (0-0.50); Eosinophils % (auto) 1.9 %; Hematocrit (blood only) 42.1 % (34.1-44.9); Hemoglobin 13.4 g/dl (12.0-16.0); Immature Granulocytes # (auto) 0.01 K/uL (0.00-0.02); Immature Granulocytes % (auto) 0.2 %; Lymphocytes # (auto) 1.34 K/uL (1.2-3.4); Lymphocytes % (auto) 32.3 %; Mean Corpuscular Hemoglobin 27.5 pg (25.0-34.0); Mean Corpuscular Hgb Conc 31.8 g/dL (32.0-36.0); Mean Corpuscular Volume 86.3 fL (80.0-100.0); Mean Platelet Volume 9.5 fL (9.4-12.3); Monocytes # (auto) 0.26 K/uL (0.24-0.82); Monocytes % (auto) 6.3 %; Neutrophils # (auto) 2.45 K/uL (1.4-6.5); Neutrophils % (auto) 59.1 %; Platelet Count 234 K/uL (130-400); RDW Coefficient of Variation 13.6 % (11.5-14.5); RDW Standard Deviation 42.7 fL (36.4-46.3); Red Blood Count 4.88 M/uL (3.93-5.22); White Blood Count 4.15 K/ul (4.8-10.8)
[2022-05-23 09:13] LABS: INR 0.9 (0.9-1.1)
--- NOTE | 2022-05-23 11:05 | Hospitalist Progress Note ---
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 Patient was also found to have UTI at presentation. At presentation, febrile with temperature of 38C, tachycardic but white cell and lactate WNL. Procalcitonin elevated at 1.06. Admitting imagings including RLE x-ray, head CT, venous Doppler RLE and CXR reviewed without acute findings. - Patient started on Rocephin and daptomycin in the ED 05/19 - all cultures negative - will d/c dapto since no evidence of purulence and step coverage should be adequate - monitor response - erythema and pain much improved - continue IV abx for now pending further resolution - then switch to PO when ready for DC - likely tomorrow 05/24/2022 if continued improvement Tinea Pedis - on right foot between toes with cracking skin - wears boots all day and feet are wet by the end of the day - advised to change socks multiple times a day while at work - ordered empiric clotrimazole cream BID for at least 4 weeks - follow up with PCP on discharge for further management Transaminitis: Mild at presentation, trend. resolved Obesity, morbid: Weight loss recommended. 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 Patient was found to have RLE cellulitis and UTI and met sepsis criteria on presentation. Admitting imagings including RLE x-ray, head CT, venous Doppler RLE and CXR reviewed without acute findings. Temperature was elevated and Pro-Darek positive with increased heart rate at presentation. Admitting labs reviewed. EKG WNL. Lyme negative. Patient was started on empiric Rocephin and Dapto in the ED, will continue with the same, await blood culture. Follow admitting urine culture. For transaminitis, trend CMP. For morbid obesity, patient counseled regarding healthy lifestyle and weight loss. Patient sounds motivated. Due to recurrent lower extremity cellulitis, consider consulting infectious disease or at least have her follow-up with ID as an outpatient. Left great toenail fungal infection, podiatry as an outpatient. Upon examination: GENERAL: Alert and oriented x3. NAD, on RA. Morbidly obese. HEENT: No pallor, no icterus. Pupils equal, round and reactive to light. Oral mucosa moist. NECK: No JVD, no neck masses. HEART: S1 and S2 heard. Regular rate and rhythm. No murmur, no gallop. RESPIRATORY SYSTEM: Normal AP diameter. No accessory muscle use. No wheezing, no crackles. ABDOMEN: Soft, bowel sounds present, nontender, no distention. CENTRAL NERVOUS SYSTEM: No facial droop. Speech is clear. Obeys simple commands. Moves extremities. EXTREMITIES: No edema, RLE erythema extending from foot to whole of leg posteriorly and 2/3rd of leg anteriorly. I have seen and examined the patient and have discussed the case with the provider above. I agree with the assessment and plan as stated. 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 Patient was found to have RLE cellulitis and UTI and met sepsis criteria on presentation. Being treated for RLE cellulitis with IV antibiotics with improvement. Patient was lying in bed, on room air, NAD. Pain and redness continue to markedly improved. Patient reports eating well. Patient denies headache or dizziness or sore throat or cough or chest pain or belly pain or other review of symptoms. Review of Systems Review of Systems: All systems reviewed & are unremarkable except as noted in Subjective Physical Exam Physical Exam: GENERAL: Alert and oriented x3. NAD, on RA. Morbidly obese. HEENT: No pallor, no icterus. Pupils equal, round and reactive to light. Oral mucosa moist. NECK: No JVD, no neck masses. HEART: S1 and S2 heard. Regular rate and rhythm. No murmur, no gallop. RESPIRATORY SYSTEM: Normal AP diameter. No accessory muscle use. No wheezing, no crackles. ABDOMEN: Soft, bowel sounds present, nontender, no distention. CENTRAL NERVOUS SYSTEM: No facial droop. Speech is clear. Obeys simple commands. Moves extremities. EXTREMITIES: No edema, RLE erythema improved and now only on lateral anterior aspect and upper posterior calf with further improvement from yesterday - no tenderness remains Results & Data Results & Data ([facility]) Vital Signs (Past 12 Hours) Vital Signs Temp Pulse Resp BP Pulse Ox O2 Del Method 05/23/22 07:30 36.3 C L 77 20 132/93 98 Room Air 05/23/22 08:00 Room Air Laboratory Results Short CBC 05/23/22 05/23/22 05/23/22 Range/Units 05:53 08:12 08:39 WBC Cancelled Cancelled 4.15 L Hgb Cancelled Cancelled 13.4 Hct Cancelled Cancelled 42.1 Plt Count Cancelled Cancelled 234 BMP 05/23/22 05:53 Sodium 139 Potassium 4.5 Chloride 107 Carbon Dioxide 23 BUN 16 Creatinine 0.74 Glucose 104 H Calcium 8.4 L Liver Function 05/23/22 Range/Units 05:53 Total Bilirubin 0.3 (0.2-1.0) mg/dl AST 24 (13-39) U/L ALT 44 (7-52) U/L Alkaline Phosphatase 37 (34-104) U/L Albumin 3.2 L (3.4-5.0) gm/dl Medications Administered Current Inpatient Medications Acetaminophen (Acetaminophen 325 Mg Tab) 650 mg PO Q4H PRN PRN Reason: Pain or Fever Stop: 06/18/22 17:05 Last Admin: 05/20/22 08:34 Dose: 650 mg Clotrimazole (Clotrimazole 1% Cr 15 Gm Tube) 1 appln EXT BID ADELITA Stop: 06/22/22 11:14 Enoxaparin Sodium (Enoxaparin Inj 40 Mg/0.4 Ml Syr) 40 mg SQ Q24H ADELITA Stop: 06/18/22 17:05 Last Admin: 05/22/22 16:05 Dose: 40 mg Ceftriaxone Sodium 2,000 mg/ (Dextrose) 70 mls @ 100 mls/hr IV DAILY ADELITA; Protocol Stop: 05/27/22 08:59 Last Infusion: 05/23/22 08:29 Dose: Infused Promethazine HCl 12.5 mg/ (Sodium Chloride) 50.5 mls @ 202 mls/hr IV Q6H PRN PRN Reason: Nausea And Vomiting Stop: 06/18/22 22:46 Last Infusion: 05/19/22 23:57 Dose: Infused Ketorolac Tromethamine (Ketorolac Tromethamine 15 Mg/Ml Vial) 15 mg IV Q6H PRN PRN Reason: Severe Pain Stop: 05/25/22 16:20 Last Admin: 05/22/22 07:49 Dose: 15 mg Loperamide HCl (Loperamide Hcl 2 Mg Cap) 2 mg PO UD PRN PRN Reason: Diarrhea Stop: 06/18/22 22:47 Ondansetron HCl (Ondansetron Inj 2 Mg/Ml 2 Ml Vial) 4 mg IV Q6H PRN PRN Reason: Nausea Stop: 06/18/22 17:05 Last Admin: 05/22/22 07:57 Dose: 4 mg Polyethylene Glycol (Polyethylene (Miralax) 17 Gm Pack) 17 gm PO DAILY PRN PRN Reason: Constipation Stop: 06/18/22 17:05
[2022-05-23] MEDS: CLOTRIMAZOLE 1% CR 15 GM TUBE EXT SCH ×2 (11:36→20:53)
[2022-05-23 12:08] LABS: A calco-baum cmplx NotReported Not Detected (NotDetected); Bact fragilis Not Reported Not Detected (NotDetected); C auris Not Reported Not Detected (NotDetected); Calbicans Not Reported Not Detected (NotDetected); Candida glabrata Not Reported Not Detected (NotDetected); Candida krusei Not Reported Not Detected (NotDetected); Cneoformans/gatti Not Reported Not Detected (NotDetected); Cparapsilosis Not Reported Not Detected (NotDetected); Ctropicalis Not Reported Not Detected (NotDetected); E cloacae compx Not Reported Not Detected (NotDetected); Efaecalis Not Reported Not Detected (NotDetected); Efaecium Not Reported Not Detected (NotDetected); Enterobacterales Not Reported Not Detected (NotDetected); Escherichia coli Not Reported Not Detected (NotDetected); H influenzae Not Reported Not Detected (NotDetected); K aerogenes Not Reported Not Detected (NotDetected); Koxytoca Not Reported Not Detected (NotDetected); Kpneumoniae grp Not Reported Not Detected (NotDetected); Lmonocyt Not Reported Not Detected (NotDetected); N meningitidis Not Reported Not Detected (NotDetected); P aeruginosa Not Reported Not Detected (NotDetected); Proteus spp Not Reported Not Detected (NotDetected); Salmonella spp Not Reported Not Detected (NotDetected); Smarcescens Not Reported Not Detected (NotDetected); Staph lugdunensis Not Reported Not Detected (NotDetected); Staph spp. Not Reported Not Detected (NotDetected); Staphaureus Not Reported Not Detected (NotDetected); Staphepi Not Reported Not Detected (NotDetected); Stenmaltophilia Not Reported Not Detected (NotDetected); Strep agal(GrpB) Not Reported Not Detected (NotDetected); Strep pneum Not Reported Not Detected (NotDetected); Strep pyog (GrpA) Not Reported Not Detected (NotDetected); Strep spp Not Reported Not Detected (NotDetected)
[2022-05-23] MEDS: ENOXAPARIN INJ 40 MG/0.4 ML SYR SQ SCH (17:54)
[2022-05-24] MEDS: cefTRIAXone SODIUM 2,000 MG in DEXTROSE 5% 50 ML IV SCH (09:12)
[2022-05-24] MEDS: CLOTRIMAZOLE 1% CR 15 GM TUBE EXT SCH (09:12)
[2022-05-24] MEDS: ACETAMINOPHEN 325 MG TAB PO PRN (10:49)
--- NOTE | 2022-05-24 12:31 | Discharge Summary ---
Date of Service May 24, 2022 Admission HPI Per Admitting Provider This is a 57-year-old female with PMH of fibromyalgia, depression and other medical problems listed below who presents with fever, nausea and vomiting as well as right lower extremity redness over the past few days. Was seen in the ER at the end of March for LLE cellulitis and discharged on 7-d course of Keflex. Two days ago, patient became nauseous and had multiple bouts of emesis. Also started to have diarrhea and chills. Was extremely fatigued and slept all day yesterday. When she woke up today, she noticed redness and swelling of right lower extremity that was not there previously. Denies any tick exposure. No open wounds. Denies any chest pain, palpitations, shortness of breath, abdominal pain, dysuria or constipation. Does not take any home meds regularly. Admission Exam Per Admitting Provider General Appearance:WD/WN, vitals as above, NAD, lying in bed, pleasant, obese Head: normocephalic, atraumatic Eyes:normal inspection, PERRL, conjunctivae normal, anicteric sclerae ENT: external ear and nose normal, oropharynx normal Neck: normal visual inspection, trachea midline, no thyromegaly Respiratory:normal respiratory effort, lungs clear to auscultation, no wheeze, rales, rhonchi. No accessory muscle use Cardiovascular: regular rate, rhythm, no murmur, normal peripheral pulses, no BLE edema. Vessels: no JVD Chest: normal inspection of chest Abdomen/GI: normal bowel sounds, soft, nontender, no hepatosplenomegaly Extremities/Musculoskeletal:RLE with erythema wrapping around to posterior calf area. Warm to touch, no open wounds. No cyanosis or clubbing, extremities motor strength 5/5 Neurologic: PERRL, EOMI, accommodation nl, no face palsy, no dysarthria, CN's II-XI intact bilaterally and moves all extremities Psychiatric:A+Ox3, euthymic affect Skin: no rashes, normal color, warm/dry Principal Diagnosis RLE cellulitis Discharge Exam GENERAL: Alert and oriented x3. NAD, on RA. Morbidly obese. HEENT: No pallor, no icterus. Pupils equal, round and reactive to light. Oral mucosa moist. NECK: No JVD, no neck masses. HEART: S1 and S2 heard. Regular rate and rhythm. No murmur, no gallop. RESPIRATORY SYSTEM: Normal AP diameter. No accessory muscle use. No wheezing, no crackles. ABDOMEN: Soft, bowel sounds present, nontender, no distention. CENTRAL NERVOUS SYSTEM: No facial droop. Speech is clear. Obeys simple commands. Moves extremities. 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 Patient was also found to have UTI at presentation. At presentation, febrile with temperature of 38C, tachycardic but white cell and lactate WNL. Procalcitonin elevated at 1.06. Admitting imagings including RLE x-ray, head CT, venous Doppler RLE and CXR reviewed without acute findings. - Patient started on Rocephin and daptomycin in the ED 05/19 - all cultures negative - will d/c dapto since no evidence of purulence and step coverage should be adequate - monitor response - erythema and pain much improved - continue IV abx for now pending further resolution - erythema and tenderness completely resolved - ok for discharge on total of 14 day PO antibiotics Tinea Pedis - on right foot between toes with cracking skin - wears boots all day and feet are wet by the end of the day - advised to change socks multiple times a day while at work - ordered empiric clotrimazole cream BID for at least 4 weeks - follow up with PCP on discharge for further management Transaminitis: Mild at presentation, trend. resolved Obesity, morbid: Weight loss recommended. Follow with PCP DVT Ppx: SQ Lovenox Code status: FULL PCP: Brynn Dispo: med/surg Yohannes Beltran MD [facility] Medicine Total Time Total Time Spent Total Time Spent (In Minutes): 21 Total Time Includes: Examination of the Patient, Discharge Planning and Medication Reconciliation Discharge Plan Discharge Items Patient Disposition: Home - Self-Care Reason For Visit: SEPSIS 2/2 RLE CELLULITIS, UTI, TRANSAMINITIS Discharge Diagnosis: RLE cellulitis Condition on Discharge: Good Activity: Resume your previous activity Non-emergency contact: Primary Care Provider Call non-emergency contact if: you have any medication questions, your symptoms worsen, your pain is worsening and you have a fever Follow-up/Referrals: Mendel Swain MD [Primary Care Provider] - 05/29/22 11:00 am (Date & Time 05/29/2022 11:00 AM Provider Jessica Sheppard Department [facility] ) Diet: Heart Healthy Addtl Attending Provider Instructions: You were admitted for right lowerleg cellulitis that was treated initially with IV antibiotics. You had good response to the antibiotics and pain and swelling and redness in your Lower leg improved markedly while in the hospital. You had a positive blood culture of 1/4 bottles which was likely a contamination of normal skin bacteria when taking the blood culture as you have improved clinically and in your lab work on the current antibiotic regimen you are on. You are ok for discharge to finish a 14 day course of antibiotics with Augmentin (amoxicillin- clavulanate) until 06/01/2022. Please make follow up with your primary care doctor to ensure continued improvement in your symptoms. You also were given clotrimazole antifungal cream for you toes - apply twice a day for about 4 weeks. At work, bring dry socks and change as often as you can. Pending Studies at Discharge: No Stand-Alone Forms: My Degree Controls, Smoking Cessation Medications and DC Order Prescriptions: New clotrimazole 1 % Cream 1 applic EXT BID Qty: 90 0RF amoxicillin-pot clavulanate 875-125 mg tablet 1 tab PO Q12H Qty: 16 0RF Continued naproxen sodium [Aleve] 220 mg Tablet 220 mg PO DIRECTED PRN (Reason: Pain) Discharge Orders: Discharge Order (Routine); Ordered 05/24/22 Ordered By: Yohannes Beltran Admission Data Admit Date/Time: 05/19/22 15:37 Attending Provider: Yohannes Beltran Admit Provider: [place] Colin Primary Care Provider: Mendel Swain Other Providers: [place] Colin Other Interventions: Discharge Summary Assessment (RN) Last Done: 05/24/22 11:02
== END 2022-05-24 12:00 | disposition home or self-care (01) | DRG 872 ==
LOC: ED 12:18 → 2S 15:37 → SUATTDRO 15:37 → 2S 16:43 → 3N 05-20 21:38

== ENCOUNTER 2023-03-24 15:39 | Inpatient (IN) ==
--- NOTE | 2023-03-24 15:51 | Emergency Department Note ---
ED Provider Note History of Present Illness Chief Complaint: Infection Stated Complaint: LEG INFECTION, CELLULITOUS Time Seen by Provider: 03/24/23 15:45 Source: patient Mode of arrival: ambulatory Limitations: no limitations This patient is a 58-year-old female who presents to the emergency department for evaluation of a wound on her right foot, fever and pain. Patient states that 4 days ago she cut her right foot. 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 Since then she has had severe pain in the foot and leg. Last night, she developed a high fever, chills and pain throughout her body. She has been vomiting but believes this is due to the pain. She has had a headache. She states her tetanus vaccine is up-to-date. She denies any cough or shortness of breath. She has tried ibuprofen for her fever, most recently took this about 4 hours ago. She tried working today but was unable. She denies any recent tick bites. Home Medications Medication Instructions Recorded Confirmed Type No Known Home Medications 03/24/23 03/24/23 History Allergies Allergy/AdvReac Type Severity Reaction Status Date / Time No Known Allergies Allergy Verified 03/24/23 17:47 Past Med/Surg History Medical History Fatty liver Fibromyalgia History of depression History of migraine History of pancreatitis Meningioma 12x5mm L retrocerebellar (NO INTERVENTION) RAO (nonalcoholic steatohepatitis) Osteoarthritis Prediabetes Uterine fibroid Surgical History H/O sinus surgery History of delivery X 1 History of cholecystectomy History of ERCP History of esophagogastroduodenoscopy (EGD) History of wisdom tooth extraction Hx of hysterectomy Family History Father Cancer Bladder cancer Mother Diabetes Aunt , 40s Stroke Other No family history of adverse response to anesthesia Social History Smoking Status: Never smoker Second Hand Exposure: Yes ( A CHILD); Do You Dip or Chew Tobacco: No; Hx Alcohol Use: No Hx Substance Use: No Preferred Language: Swedish Communication Ability: Effective Building Pressure Washer Required: No Beliefs That Will Affect Care: None Current Living Situation: Family Current Living Situation Comment: and 2 children current occupational status: employed current occupation: [employer] How many Children do You have: 2 Feels Safe at Home: Yes Assistive Devices: None Physical Exam Vital Signs Vital Signs - 24 hr 03/24/23 15:42 03/24/23 15:59 03/24/23 16:36 Temperature 38.4 C H Temperature Source Temporal Artery Scan Pulse Rate 131 H Pulse Rate [Apical] Respiratory Rate 20 20 20 Respiratory Effort / Characteristics Non-Labored Non-Labored Respiratory Depth Normal Normal Respiratory Pattern Regular Blood Pressure [Left Arm] 153/105 H Blood Pressure [Left Radial Artery] Blood Pressure Mean [Left Arm] 121 Blood Pressure Mean [Left Radial Artery] Blood Pressure Position [Left Radial Artery] Pulse Oximetry 95 99 95 Oxygen Delivery Method Room Air Room Air Room Air Sepsis Recent Fever Within 48 Hours Yes Sepsis New/Unexplained Change in Mental Status No Sepsis Action Taken by Nursing Physician Notified 03/24/23 16:36 03/24/23 17:12 03/24/23 17:12 Temperature 37.6 C H Temperature Source Oral Pulse Rate 119 H Pulse Rate [Apical] 117 H 115 H Respiratory Rate 20 20 Respiratory Effort / Characteristics Respiratory Depth Respiratory Pattern Blood Pressure [Left Arm] 154/95 H Blood Pressure [Left Radial Artery] 136/89 Blood Pressure Mean [Left Arm] 114 Blood Pressure Mean [Left Radial Artery] 104 Blood Pressure Position [Left Radial Artery] Sitting Pulse Oximetry 95 96 Oxygen Delivery Method Room Air Room Air Sepsis Recent Fever Within 48 Hours Sepsis New/Unexplained Change in Mental Status Sepsis Action Taken by Nursing VITALS: Vitals are noted on the nurse's note and reviewed by myself. GENERAL: This is a 58-year-old female, male lying in bed, acutely ill-appearing. SKIN: There is a 1 cm healing laceration to the plantar aspect of the right foot. There is erythema and induration extending up the posterior right lower leg. This does not extend past the knee. EARS: External auditory canals clear, tympanic membranes pearly aponte without erythema or effusion bilaterally. EYES: Pupils equal round and reactive to light and accommodation. NOSE: Patent, turbinates without inflammation or discharge. MOUTH: Mucous membranes moist. Tonsils are not enlarged. Pharynx without erythema or exudate. NECK: Supple without nuchal rigidity. No lymphadenopathy. HEART: Regular rate and rhythm without murmurs gallops or rubs. LUNGS: Clear to auscultation bilaterally without wheezes, rales or rhonchi. ABDOMEN: Positive bowel sounds x 4. Soft, nontender to palpation. MUSCULOSKELETAL: Full ROM throughout. NEURO: Patient was alert and oriented to person place and time. Course Administered Medications Daptomycin 525 mg/ Syringe 10.5 mls @ 5.25 mls/min IV Q24H [facility] / [facility]; Protocol Stop: 03/26/23 16:14 Last Admin: 03/24/23 17:04 Dose: 5.25 mls/min Documented By: QGV Discontinued Medications Sodium Chloride (Nss 1000ml) 2,000 mls @ 999 mls/hr IV .Q2H1M ONE Stop: 03/24/23 17:56 Last Infusion: 03/24/23 19:36 Dose: 0 mls/hr Documented By: Admin: 03/24/23 16:11 Dose: 999 mls/hr Documented By: NATALIE Acetaminophen (Ofirmev) 1,000 mg in 100 mls @ 400 mls/hr IV NOW STA Stop: 03/24/23 16:13 Last Infusion: 03/24/23 16:46 Dose: 0 mls/hr Documented By: Admin: 03/24/23 16:12 Dose: 400 mls/hr Documented By: NATALIE Piperacillin Sod/Tazobactam Sod (Zosyn) 4.5 gm in 120 mls @ 240 mls/hr IV NOW ONE Stop: 03/24/23 16:32 Last Infusion: 03/24/23 16:50 Dose: 0 mls/hr Documented By: Admin: 03/24/23 16:19 Dose: 240 mls/hr Documented By: NATALIE Ioversol (Optiray 320 500ml) 115 ml IV ONCE ONE Stop: 03/24/23 17:35 Last Admin: 03/24/23 17:34 Dose: 115 ml Documented By: KEENAN Medical Decision Making Differential Diagnosis Cellulitis, abscess, MRSA infection, DVT, necrotizing fasciitis, dermatitis, drug eruption, allergic reaction, as well as other pathologies. Home Medications was personally reviewed by me Laboratory Data Attestation: I reviewed the patient's lab results. 03/24/23 16:02 03/24/23 16:02 Lab Results 03/24/23 03/24/23 03/24/23 Range/Units 16:02 16:02 16:02 WBC 14.67 H (4.8-10.8) K/ul RBC 4.82 (4.20-5.40) M/uL Hgb 13.6 (12.0-16.0) g/dl Hct 40.8 (37.0-47.0) % MCV 84.6 (80.0-100.0) fL MCH 28.2 (25.0-34.0) pg MCHC 33.3 (32.0-36.0) g/dL RDW Std Deviation 42.2 (36.4-46.3) fL RDW Coeff of Aism 13.6 (11.5-14.5) % Plt Count 241 (130-400) K/uL MPV 10.2 (9.4-12.4) fL Immature Gran % (Auto) 0.4 % Neut % (Auto) 93.3 % Lymph % (Auto) 2.9 % [place] % (Auto) 3.2 % Eos % (Auto) 0.0 % Baso % (Auto) 0.2 % Neut # (Auto) 13.68 H (1.40-6.50) K/uL Lymph # (Auto) 0.43 L (1.2-3.4) K/uL [place] # (Auto) 0.47 (0.11-0.59) K/uL Eos # (Auto) 0.00 (0-0.50) K/uL Baso # (Auto) 0.03 (0-0.2) K/uL Immature Gran # (Auto) 0.06 (0.01-0.20) K/uL Sodium 137 (136-145) mmol/L Potassium 4.1 (3.5-5.1) mmol/L Chloride 103 (98-107) mmol/L Carbon Dioxide 27 (21-32) mmol/L Anion Gap 7 (3-11) BUN 15 (6-23) mg/dl Creatinine 0.88 (0.6-1.2) mg/dl Est Cr Clr Drug Dosing 97.3 ml/min Est GFR ( Amer) 83.9 ml/min Est GFR (Non-Af Amer) 72.4 ml/min BUN/Creatinine Ratio 17.0 (10-20) Glucose 113 H (70-99(Fasting)) mg/dl Lactate 2.0 (0.4-2.0) mmol/L Calcium 9.5 (8.6-10.3) mg/dl Total Bilirubin 0.4 (0.2-1.0) mg/dl AST 18 (13-39) U/L ALT 15 (7-52) U/L Alkaline Phosphatase 56 (34-104) U/L Total Protein 7.1 (6.0-8.3) gm/dl Albumin 4.1 (3.4-5.0) gm/dl Globulin 3.0 (2.5-4.0) gm/dl Albumin/Globulin Ratio 1.4 (0.9-2) Imaging Data Attestation: I personally reviewed and interpreted this imaging study as follows: Radiologist's Impression: Foot CT 03/24/23 15:56 CT foot RT w con, CT tib/fib RT w con CLINICAL HISTORY: Right leg pain, cellulitis, sepsis TECHNIQUE: Multidetector row helical CT of the right foot and right tibia and fibula was performed without intravenous contrast. Coronal and sagittal reformations were obtained. Automated dose lowering techniques and/or adjustment according to patient size were utilized for this examination. CT DOSE: 485.22 mGy.cm Comparison: None available at the time of this dictation. FINDINGS: Degenerative changes are seen in the knee joint. No joint effusion is seen. Soft tissue swelling is seen in the leg without evidence of drainable fluid collection. The bones are unremarkable without evidence of erosion.. IMPRESSION: Findings compatible with cellulitis without abscess or underlying osteomyelitis. ACT 112: Negative or not required by law. Electronically signed by: Bryce House M.D. 03/24/2023 6:[address] 03/24/23 15:56 CT foot RT w con, CT tib/fib RT w con CLINICAL HISTORY: Right leg pain, cellulitis, sepsis TECHNIQUE: Multidetector row helical CT of the right foot and right tibia and fibula was performed without intravenous contrast. Coronal and sagittal reformations were obtained. Automated dose lowering techniques and/or adjustment according to patient size were utilized for this examination. CT DOSE: 485.22 mGy.cm Comparison: None available at the time of this dictation. FINDINGS: Degenerative changes are seen in the knee joint. No joint effusion is seen. Soft tissue swelling is seen in the leg without evidence of drainable fluid collection. The bones are unremarkable without evidence of erosion.. IMPRESSION: Findings compatible with cellulitis without abscess or underlying osteomyelitis. ACT 112: Negative or not required by law. Electronically signed by: Bryce House M.D. 03/24/2023 6:14 PM MDM Narrative Continuous sales promotion coordinator: Order was placed for continuous sales promotion coordinator. Patient was placed on the sales promotion coordinator. Patient was noted to be in sinus tachycardia at an initial rate of 120 bpm. The patient is a 58-year-old female who presents today complaining of generalized pain, fevers and severe right lower extremity pain after an injury to the foot. 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 She is febrile and tachycardic on initial assessment. Labs revealed leukocytosis of 14,000. Lactate was 2.0. Kidney function within normal limits. Blood cultures obtained. Due to the rapid onset of patient's symptoms, I did elect to perform a CT scan of the lower extremity to rule out necrotizing fasciitis or foreign body. This was negative for these findings and suggested cellulitis. After consultation with the ED pharmacist, patient was given initial doses of Zosyn and daptomycin. Her tetanus is up-to-date, most recent in 2020. She was given normal saline fluid resuscitation, 30 mL/kg based on her ideal body weight. Patient will require admission for sepsis. [facility] agreed to evaluate the patient for further care. Impression Sepsis, Cellulitis of right lower extremity Critical Care Time Critical Care Time: Yes Total Critical Care Time: 30 I have personally spent greater than 30 minutes of critical care time in the direct management of this patient. This includes bedside care, interpretation of diagnostic studies, and testing, discussion with consultants, patient, and family members, and other required patient management activities. This 30 minutes is in excess of all separately billable procedures. Discharge Plan Visit Data Chief Complaint: Infection Stated Complaint: LEG INFECTION, CELLULITOUS ED Provider: [place] [facility] Midlevel Provider: Marjorie Duffy Discharge Problem: Sepsis, Cellulitis of right lower extremity Patient Disposition: Admitted As Inpatient Discharge Instructions Interventions: ED Discharge Assessment Last Done: 03/24/23 20:52
[2023-03-24] MEDS ORDERED: SODIUM CHLORIDE 0.9% 1000ML 2,000 ML IV ONE (15:56)
[2023-03-24] MEDS ORDERED: ACETAMINOPHEN 1,000 MG/100 ML VIAL IV STA (15:59)
[2023-03-24] MEDS ORDERED: PIPERACILLIN/TAZOBACTAM 4.5 GM/120 ML BAG IV ONE (16:03)
[2023-03-24 16:27] LABS: Hematocrit (blood only) 40.8 % (37.0-47.0); Hemoglobin 13.6 g/dl (12.0-16.0); Mean Corpuscular Hemoglobin 28.2 pg (25.0-34.0); Mean Corpuscular Hgb Conc 33.3 g/dL (32.0-36.0); Mean Corpuscular Volume 84.6 fL (80.0-100.0); Mean Platelet Volume 10.2 fL (9.4-12.4); Platelet Count 241 K/uL (130-400); RDW Coefficient of Variation 13.6 % (11.5-14.5); RDW Standard Deviation 42.2 fL (36.4-46.3); Red Blood Count 4.82 M/uL (4.20-5.40); White Blood Count 14.67 K/ul (4.8-10.8)
[2023-03-24 16:42] LABS: Albumin Globulin Ratio 1.4 (0.9-2); Albumin Level 4.1 gm/dl (3.4-5.0); Bilirubin,Total 0.4 mg/dl (0.2-1.0); Calcium 9.5 mg/dl (8.6-10.3); Creatinine Clr Calc Pharmacy 97.3 ml/min; Est GFR (African American) 83.9 ml/min; Est GFR (Non-African American) 72.4 ml/min; Potassium 4.1 mmol/L (3.5-5.1); Total Protein 7.1 gm/dl (6.0-8.3)
[2023-03-24 16:44] LABS: Basophils # (auto) 0.03 K/uL (0-0.2); Basophils % (auto) 0.2 %; Immature Granulocytes # (auto) 0.06 K/uL (0.01-0.20); Immature Granulocytes % (auto) 0.4 %; Lymphocytes # (auto) 0.43 K/uL (1.2-3.4); Lymphocytes % (auto) 2.9 %; Monocytes # (auto) 0.47 K/uL (0.11-0.59); Monocytes % (auto) 3.2 %; Neutrophils # (auto) 13.68 K/uL (1.40-6.50); Neutrophils % (auto) 93.3 %
[2023-03-24] MEDS: DAPTOmycin 525 MG in SYRINGE 0 ML IV SCH (17:04)
[2023-03-24] MEDS ORDERED: OPTIRAY 320 500ml IV ONE (17:34)
--- NOTE | 2023-03-24 18:17 | CT Scan Report ---
CT foot RT w con, CT tib/fib RT w con CLINICAL HISTORY: Right leg pain, cellulitis, sepsis TECHNIQUE: Multidetector row helical CT of the right foot and right tibia and fibula was performed wi thout intravenous contrast. Coronal and sagittal reformations were obtained. Automated dose lowering techniques and/or adjustment according to patient size were utilized for this examination. CT DOSE: 485.22 mGy.cm Comparison: None available at the time of this dictation. FINDINGS: Degenerative changes are seen in the knee joint. No joint effusion is seen. Soft tissue swelling is seen in the leg without evidence of drainable fluid collection. The bones are unremarkable without ev idence of erosion.. IMPRESSION: Findings compatible with cellulitis without abscess or underlying osteomyelitis. ACT 112: Negative or not required by law. Electronically signed by: Bryce House M.D. 03/24/2023 6:14 PM
--- NOTE | 2023-03-24 20:27 | History & Physical Report ---
Date of Service March 24, 2023 Assessment & Plan (1) Sepsis: (2) Cellulitis of right lower extremity: Plan: Admit to [facility] with telemetry Patient presenting from home with reports of right foot wound and RLE pain. 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 Met sepsis criteria on presentation --temp 38.4, tachycardic, WBC 14.6 K. Lactate 2.0, BP stable. Tetanus shot UTD CT right foot and RLE negative for foreign body, abscess, and signs of osteomyelitis. If not improving, consider MRI. S/p Dapto and Zosyn in the ED, continue with both Follow blood cultures. No drainage from wound to obtain wound culture. (3) Prediabetes: Plan: Hgb A1c 5.6 07/2022 Glucose 113 on today's labs Update A1c with a.m. labs Provide NovoLog if needed (4) Obesity, morbid, BMI 50 or higher: Plan: Patient previously on Wegovy however states that she has not been able to get it refilled DVT PROPHYLAXIS SQ Lovenox Patient seen in collaboration with Dr. Freeman. I spent a total of 75 minutes coordinating, documenting, and providing care for this patient excluding time spent in the performance of separately billed services. This included personally reviewing all current laboratories and imaging studies, medication reconciliation, outpatient chart review, and discussion with specialists. History of Present Illness Chief Complaint: Right foot wound Primary Care Provider: Bruna Godoy DO 58-year-old female with PMH prediabetes, obesity, osteoarthritis, fibromyalgia, meningioma, depression, RAO, and other problems listed below who presents to the ED for evaluation of right foot wound. History obtained from the patient and review of outpatient PCP records. 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 Patient states that today she developed increased pain in the right foot as well as swelling to the right lower extremity. Patient reports chills, nausea, vomiting. She then presented to the ED for further evaluation. While in the ED, RLE became erythematous. Patient denies chest pain or shortness of breath. She reports some mild lightheadedness and dizziness with standing however no syncopal event. Denies abdominal pain and diarrhea. No urinary symptoms. In the ED, patient was febrile at 38.4, tachycardic, WBC [address] right foot and RLE negative for abscess and osteomyelitis. Patient was given IV Dapto, IV Zosyn, IVF. Allergies Allergy/AdvReac Type Severity Reaction Status Date / Time No Known Allergies Allergy Verified 03/24/23 17:47 Home Medications Medication Instructions Recorded Confirmed Type No Known Home Medications 03/24/23 03/24/23 History Past Med/Surg History Medical History Fatty liver Fibromyalgia History of depression History of migraine History of pancreatitis Meningioma 12x5mm L retrocerebellar (NO INTERVENTION) RAO (nonalcoholic steatohepatitis) Osteoarthritis Prediabetes Uterine fibroid Surgical History H/O sinus surgery History of delivery X 1 History of cholecystectomy History of ERCP History of esophagogastroduodenoscopy (EGD) History of wisdom tooth extraction Hx of hysterectomy Family History Father Cancer Bladder cancer Mother Diabetes Aunt , 40s Stroke Other No family history of adverse response to anesthesia Social History Smoking Status: Never smoker Second Hand Exposure: Yes ( A CHILD); Do You Dip or Chew Tobacco: No; Hx Alcohol Use: No Hx Substance Use: No Preferred Language: Rwandan Communication Ability: Effective Painter Bottom Required: No Beliefs That Will Affect Care: None Current Living Situation: Family Current Living Situation Comment: and 2 children current occupational status: employed current occupation: [employer] How many Children do You have: 2 Feels Safe at Home: Yes Assistive Devices: None Review of Systems Review of Systems: ROS per HPI, all other systems reviewed and negative Physical Exam Constitutional: WD/WN, vitals as above + obese; no acute distress Eyes: PERRL, conjunctivae normal, anicteric sclerae ENMT: external ear and nose normal, oropharynx normal Respiratory: normal respiratory effort, lungs clear to auscultation Cardiovascular: Rate/Rhythm: regular rhythm and + tachycardic Vessels: normal peripheral pulses Gastrointestinal (Abdomen): normal bowel sounds, soft, nontender, no hepatosplenomegaly Musculoskeletal: no cyanosis or clubbing, extremities motor strength 5/5 Skin: no rashes, warm and dry Small laceration noted to the plantar aspect of the right foot, no drainage noted. RLE L erythematous from the knee to the ankle, warm to touch Neurologic: PERRL, EOMI, accommodation nl, no face palsy, no dysarthria Psychiatric: A+Ox3, euthymic affect Results & Data Results & Data Vital Signs (Past 12 Hours) Vital Signs Temp Pulse Pulse Resp BP BP Pulse Ox 03/24/23 19:09 37.4 C 107 H 18 119/63 98 03/24/23 17:12 37.6 C H 115 H 20 136/89 96 03/24/23 17:12 119 H 03/24/23 16:36 117 H 20 154/95 H 95 03/24/23 16:36 20 95 03/24/23 15:59 20 153/105 H 99 03/24/23 15:42 38.4 C H 131 H 20 95 O2 Del Method 03/24/23 19:09 Room Air 03/24/23 17:12 Room Air 03/24/23 17:12 03/24/23 16:36 Room Air 03/24/23 16:36 Room Air 03/24/23 15:59 Room Air 03/24/23 15:42 Room Air Laboratory Results Short CBC 03/24/23 Range/Units 16:02 WBC 14.67 H (4.8-10.8) K/ul Hgb 13.6 (12.0-16.0) g/dl Hct 40.8 (37.0-47.0) % Plt Count 241 (130-400) K/uL BMP 03/24/23 16:02 Sodium 137 Potassium 4.1 Chloride 103 Carbon Dioxide 27 BUN 15 Creatinine 0.88 Glucose 113 H Calcium 9.5 Liver Function 03/24/23 Range/Units 16:02 Total Bilirubin 0.4 (0.2-1.0) mg/dl AST 18 (13-39) U/L ALT 15 (7-52) U/L Alkaline Phosphatase 56 (34-104) U/L Albumin 4.1 (3.4-5.0) gm/dl Diagnostic Findings Short CBC 03/24/23 Range/Units 16:02 WBC 14.67 H (4.8-10.8) K/ul Hgb 13.6 (12.0-16.0) g/dl Hct 40.8 (37.0-47.0) % Plt Count 241 (130-400) K/uL BMP 03/24/23 16:02 Sodium 137 Potassium 4.1 Chloride 103 Carbon Dioxide 27 BUN 15 Creatinine 0.88 Glucose 113 H Calcium 9.5 Liver Function 03/24/23 Range/Units 16:02 Total Bilirubin 0.4 (0.2-1.0) mg/dl AST 18 (13-39) U/L ALT 15 (7-52) U/L Alkaline Phosphatase 56 (34-104) U/L Albumin 4.1 (3.4-5.0) gm/dl Code Status & VTE Plan VTE Prophylaxis Plan VTE Prophylaxis will be ordered: Yes Supervising Physician Co-Signing Physician Notes Attending addendum The patient was seen and examined in the emergency room She has been complaining of increasing redness and pain involving the right leg with flushed facies She has had minimal injury to her sole on the right side a few days back She is up-to-date with tetanus toxoid injection On examination Lying in bed comfortably Hemodynamically stable with tachycardia 107 Chest-clear to auscultate with decreased breath sounds bilaterally Heart-S1-S2, regular Abdomen-benign Extremities-chronic swelling both legs and may have lymphedema Right lower extremity is red with increased local temperature and tenderness, erythematous/involving the right leg no drainage from the wound Her labs and imaging studies reviewed No evidence of osteomyelitis and or abscess Has a spreading cellulitis of the right lower extremity following nail injury to the sole Has been started with broad-spectrum antibiotic Agree with assessment and plan as outlined above by Candie Freeman
[2023-03-24] MEDS: PIPERACILLIN/TAZOBACTAM 4.5 GM in DEXTROSE 5% 100 ML IV SCH (22:36)
[2023-03-24] MEDS: ENOXAPARIN INJ 40 MG/0.4 ML SYR SQ SCH (22:37)
[2023-03-24] MEDS ORDERED: LORazepam 2 MG/1 ML VIAL IV STA (23:04)
[2023-03-24] MEDS ORDERED: KETOROLAC TROMETHAMINE 15 MG/ML VIAL IV ONE (23:10)
[2023-03-24] MEDS ORDERED: NSS + 20MEQ KCL 20 MEQ/1,000 ML BAG IV ONE (23:10)
[2023-03-24] MEDS: PROMETHAZINE HCL 12.5 MG in SODIUM CHLORIDE 0.9% 50 ML IV PRN (23:53)
--- NOTE | 2023-03-24 23:56 | CT Scan Report ---
Exam(s): CT HEAD Without Contrast EXAM: CT Head Without Intravenous Contrast CLINICAL HISTORY: Reason for exam: wilcox. TECHNIQUE: Axial computed tomography images of the head/brain without intravenous contrast. CTDI is 36 mGy and DLP is 625.8 mGy-cm. Automated exposure control was utilized for the study. A dose lowering technique was utilized adhering to the principles of ALARA. COMPARISON: No relevant prior studies available. FINDINGS: No acute intracranial hemorrhage. No midline shift or mass effect. The territorial aponte-white matter differentiation is maintained throughout. The ventricles and sulci are commensurate with age. The visualized orbits appear grossly unremarkable. The calvarium is intact. The visualized paranasal sinuses and mastoid air cells are grossly clear. IMPRESSION: No acute intracranial hemorrhage, midline shift, or mass effect. Electronically signed by: Lakhwinder Munoz MD 03/24/23 23:56 PM
[2023-03-25] MEDS: ACETAMINOPHEN 325 MG TAB PO PRN ×3 (04:37→18:18)
[2023-03-25] MEDS ORDERED: METOCLOPRAMIDE HCL INJ 5 MG/ML 2 ML VIAL IV STA (04:43)
[2023-03-25] MEDS ORDERED: ACETAMINOPHEN 1,000 MG/100 ML VIAL IV STA (04:46)
[2023-03-25 04:58] LABS: A calco-baum cmplx NotReported Not Detected (NotDetected); Bact fragilis Not Reported Not Detected (NotDetected); C auris Not Reported Not Detected (NotDetected); Calbicans Not Reported Not Detected (NotDetected); Candida glabrata Not Reported Not Detected (NotDetected); Candida krusei Not Reported Not Detected (NotDetected); Cneoformans/gatti Not Reported Not Detected (NotDetected); Cparapsilosis Not Reported Not Detected (NotDetected); Ctropicalis Not Reported Not Detected (NotDetected); E cloacae compx Not Reported Not Detected (NotDetected); Efaecalis Not Reported Not Detected (NotDetected); Efaecium Not Reported Not Detected (NotDetected); Enterobacterales Not Reported Not Detected (NotDetected); Escherichia coli Not Reported Not Detected (NotDetected); H influenzae Not Reported Not Detected (NotDetected); K aerogenes Not Reported Not Detected (NotDetected); Koxytoca Not Reported Not Detected (NotDetected); Kpneumoniae grp Not Reported Not Detected (NotDetected); Lmonocyt Not Reported Not Detected (NotDetected); N meningitidis Not Reported Not Detected (NotDetected); P aeruginosa Not Reported Not Detected (NotDetected); Proteus spp Not Reported Not Detected (NotDetected); Salmonella spp Not Reported Not Detected (NotDetected); Smarcescens Not Reported Not Detected (NotDetected); Staph lugdunensis Not Reported Not Detected (NotDetected); Staph spp. Not Reported Not Detected (NotDetected); Staphaureus Not Reported Not Detected (NotDetected); Staphepi Not Reported Not Detected (NotDetected); Stenmaltophilia Not Reported Not Detected (NotDetected); Strep agal(GrpB) Not Reported Not Detected (NotDetected); Strep pneum Not Reported Not Detected (NotDetected); Strep pyog (GrpA) Not Reported Not Detected (NotDetected); Strep spp Not Reported DETECTED (NotDetected)
[2023-03-25 05:11] LABS: Streptococcus spp DETECTED (NotDetected)
[2023-03-25] MEDS ORDERED: MAGNESIUM SULFATE / D5W 1 GM/100 ML BAG IV ONE (05:17)
[2023-03-25] MEDS: PIPERACILLIN/TAZOBACTAM 4.5 GM in DEXTROSE 5% 100 ML IV SCH ×3 (05:40→20:03)
[2023-03-25 08:04] LABS: Hemoglobin 11.8 g/dl (12.0-16.0); Mean Corpuscular Hemoglobin 28.2 pg (25.0-34.0); Mean Corpuscular Hgb Conc 32.8 g/dL (32.0-36.0); Mean Corpuscular Volume 86.1 fL (80.0-100.0); Platelet Count 183 K/uL (130-400); RDW Coefficient of Variation 13.9 % (11.5-14.5); RDW Standard Deviation 43.8 fL (36.4-46.3); Red Blood Count 4.18 M/uL (4.20-5.40); White Blood Count 12.92 K/ul (4.8-10.8)
[2023-03-25 08:21] LABS: Estimated Average Glucose 114 mg/dl; Hemoglobin A1C 5.6 % (4.5-5.6)
[2023-03-25 08:30] LABS: BUN Creatinine Ratio 16.3 (10-20); Calcium 8.3 mg/dl (8.6-10.3); Creatinine Clr Calc Pharmacy 91.5 ml/min; Est GFR (African American) 79.6 ml/min; Est GFR (Non-African American) 68.6 ml/min; Potassium 2.9 mmol/L (3.5-5.1)
[2023-03-25] MEDS ORDERED: POTASSIUM CHLORIDE CRTAB 20 MEQ TABCR PO STA (08:46)
[2023-03-25] MEDS: ENOXAPARIN INJ 40 MG/0.4 ML SYR SQ SCH ×2 (08:55→20:04)
[2023-03-25] MEDS: PROMETHAZINE HCL 12.5 MG in SODIUM CHLORIDE 0.9% 50 ML IV PRN (11:59)
[2023-03-25] MEDS: NSS + 20MEQ KCL 20 MEQ/1,000 ML BAG IV SCH ×2 (12:28→20:02)
--- NOTE | 2023-03-25 13:25 | Hospitalist Progress Note ---
Date of Service March 25, 2023 Assessment & Plan (1) Sepsis: (2) Hypokalemia: (3) Cellulitis of right lower extremity: Plan: Patient presented from home with reports of right foot wound and RLE pain. 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 Met sepsis criteria on presentation --temp 38.4, tachycardic, WBC 14.6 K. Lactate 2.0, BP stable. Reported full tetanus vaccination and last dose is [address] right foot and RLE negative for foreign body, abscess, and signs of osteomyelitis. Blood culture growing Group G beta strep Repeat blood cultures TTE did not show any vegetation or valvular abnormalities Continue daptomycin and zosyn Continue tylenol prn fevers, antiemetic prn Follow up blood culture sensitivities K is 2.9 today PO Potassium chloride 40mg given Continue NSS +[id number] at increased rate of 125cc/h Recheck BMP this afternoon (4) Prediabetes: Plan: Hgb A1c 5.6 07/2022 Hb is 5.6 today (5) Obesity, morbid, BMI 50 or higher: Plan: Patient previously on Wegovy however states that she has not been able to get it refilled DVT PROPHYLAXIS SQ Lovenox I spent a total of 55 minutes coordinating, documenting and providing care for this patient excluding time spent in performance of separately billed services Admission and Anticipated Discharge Date Admission Date: March 24, 2023 Subjective Patient seen and examined Reports fever, chills, nausea, vomiting, myalgia Denied abd pain, diarrhea Denied cough, chest pain, SOB Denied dysuria, freq, urgency Reports right foot pain Physical Exam Constitutional: + well hydrated and + obese; no acute distress Eyes: PERRL, conjunctivae normal, anicteric sclerae ENMT: external ear and nose normal, oropharynx normal Respiratory: normal respiratory effort, lungs clear to auscultation Cardiovascular: Rate/Rhythm: regular rhythm and + tachycardic S1 S2 Gastrointestinal (Abdomen): normal bowel sounds, soft, nontender, no hepatosplenomegaly Musculoskeletal: Erythema over right lower leg. Tenderness more over foot. Neurologic: PERRL, EOMI, accommodation nl, no face palsy, no dysarthria Psychiatric: A+Ox3, euthymic affect Results & Data Results & Data Vital Signs (Past 12 Hours) Vital Signs Temp Pulse Pulse Resp BP Pulse Ox O2 Del Method 03/25/23 11:33 39.2 C H 99 H 18 138/73 99 Room Air 03/25/23 11:26 38.8 C H 03/25/23 07:25 37.2 C 86 20 107/74 95 Room Air 03/25/23 07:20 100 H 03/25/23 05:14 38.8 C H 114 H 16 147/87 H 93 Room Air Laboratory Results Abnormal lab results 03/24/23 03/24/23 03/24/23 Range/Units 16:02 16:02 16:02 WBC 14.67 H (4.8-10.8) K/ul RBC (4.20-5.40) M/uL Hgb (12.0-16.0) g/dl Hct (37.0-47.0) % Neut # (Auto) 13.68 H (1.40-6.50) K/uL Lymph # (Auto) 0.43 L (1.2-3.4) K/uL Potassium (3.5-5.1) mmol/L Chloride (98-107) mmol/L Glucose 113 H (70-99(Fasting)) mg/dl Calcium (8.6-10.3) mg/dl Streptococcus sp PCR DETECTED A (NotDetected) 03/25/23 03/25/23 Range/Units 07:11 07:11 WBC 12.92 H (4.8-10.8) K/ul RBC 4.18 L (4.20-5.40) M/uL Hgb 11.8 L (12.0-16.0) g/dl Hct 36.0 L (37.0-47.0) % Neut # (Auto) (1.40-6.50) K/uL Lymph # (Auto) (1.2-3.4) K/uL Potassium 2.9 L D (3.5-5.1) mmol/L Chloride 108 H (98-107) mmol/L Glucose 130 H (70-99(Fasting)) mg/dl Calcium 8.3 L (8.6-10.3) mg/dl Streptococcus sp PCR (NotDetected)
[2023-03-25] MEDS: DAPTOmycin 525 MG in SYRINGE 0 ML IV SCH (16:54)
[2023-03-25 17:00] LABS: BUN Creatinine Ratio 14.3 (10-20); Calcium 8.1 mg/dl (8.6-10.3); Creatinine Clr Calc Pharmacy 92.5 ml/min; Est GFR (African American) 80.6 ml/min; Est GFR (Non-African American) 69.5 ml/min; Potassium 3.2 mmol/L (3.5-5.1)
[2023-03-25] MEDS ORDERED: KETOROLAC TROMETHAMINE 15 MG/ML VIAL IV ONE (20:49)
[2023-03-26] MEDS: NSS + 20MEQ KCL 20 MEQ/1,000 ML BAG IV SCH (04:07)
[2023-03-26] MEDS: PIPERACILLIN/TAZOBACTAM 4.5 GM in DEXTROSE 5% 100 ML IV SCH ×3 (06:12→21:01)
[2023-03-26 08:07] LABS: Hematocrit (blood only) 40.6 % (37.0-47.0); Hemoglobin 12.8 g/dl (12.0-16.0); Mean Corpuscular Hemoglobin 27.8 pg (25.0-34.0); Mean Corpuscular Hgb Conc 31.5 g/dL (32.0-36.0); Mean Corpuscular Volume 88.3 fL (80.0-100.0); Mean Platelet Volume 10.6 fL (9.4-12.4); Platelet Count 160 K/uL (130-400); RDW Coefficient of Variation 14.4 % (11.5-14.5); RDW Standard Deviation 46.5 fL (36.4-46.3); White Blood Count 8.11 K/ul (4.8-10.8)
[2023-03-26] MEDS: ACETAMINOPHEN 1,000 MG/100 ML VIAL IV PRN ×2 (08:53→17:33)
[2023-03-26] MEDS: ENOXAPARIN INJ 40 MG/0.4 ML SYR SQ SCH ×2 (08:54→21:00)
[2023-03-26 09:09] LABS: Albumin Level 3.4 gm/dl (3.4-5.0); Bilirubin,Total 0.4 mg/dl (0.2-1.0); Calcium 8.6 mg/dl (8.6-10.3); Potassium 3.8 mmol/L (3.5-5.1)
[2023-03-26 09:15] LABS: Albumin Globulin Ratio 1.2 (0.9-2); BUN Creatinine Ratio 14.6 (10-20); Creatinine Clr Calc Pharmacy 104.3 ml/min; Est GFR (African American) 91.4 ml/min; Est GFR (Non-African American) 78.9 ml/min; Globulin 2.8 gm/dl (2.5-4.0); Phosphorus 2.4 mg/dl (2.5-4.9); Total Protein 6.2 gm/dl (6.0-8.3)
--- NOTE | 2023-03-26 09:30 | Hospitalist Progress Note ---
Date of Service March 26, 2023 Assessment & Plan (1) Sepsis: (2) Hypokalemia: (3) Cellulitis of right lower extremity: Plan: Patient presented from home with reports of right foot wound and RLE pain. 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 Met sepsis criteria on presentation --temp 38.4, tachycardic, WBC 14.6 K. Lactate 2.0, BP stable. Reported full tetanus vaccination and last dose is [address] right foot and RLE negative for foreign body, abscess, and signs of osteomyelitis. Blood culture growing Group G beta strep Repeat blood cultures TTE did not show any vegetation or valvular abnormalities Continue daptomycin and zosyn Continue tylenol prn fevers, antiemetic prn Follow up blood culture sensitivities Had hypokalemia of 2.9 yesterday Was repleted. Hypokalemia is now resolved. K is 3.8 today Give neutraphos for phosph of 2.4 Stop IVF in view of report of SOB and tolerating po better today Get CXR AST/ALT mildly elevated at 65/76 respectively today. Monitor Check CK (4) Prediabetes: Plan: Hgb A1c 5.6 07/2022 Hb is 5.6 today (5) Obesity, morbid, BMI 50 or higher: Plan: Patient previously on Wegovy however states that she has not been able to get it refilled DVT PROPHYLAXIS SQ Lovenox I spent a total of 50 minutes coordinating, documenting and providing care for this patient excluding time spent in performance of separately billed services Admission and Anticipated Discharge Date Admission Date: March 24, 2023 Subjective Patient seen and examined Reported some chills last night Last fever was at 8:44pm yesterday at 39C Reports some nausea but no vomiting today Reports she started having some cough and mild shortness of breath overnight and early this morning Denied chest pain Reports myalgias, headache Denied abd pain, diarrhea Denied dysuria, freq, urgency Reports right foot pain around site of injury Physical Exam Constitutional: + well hydrated and + obese; no acute distress Eyes: PERRL, conjunctivae normal, anicteric sclerae ENMT: external ear and nose normal, oropharynx normal Respiratory: normal respiratory effort, lungs clear to auscultation Cardiovascular: Rate/Rhythm: regular rate and regular rhythm S1 S2 Gastrointestinal (Abdomen): normal bowel sounds, soft, nontender, no hepatosplenomegaly Musculoskeletal: Erythema over right lower leg within markings. Tenderness over small wound on plantar surface of foot Neurologic: PERRL, EOMI, accommodation nl, no face palsy, no dysarthria Psychiatric: A+Ox3, euthymic affect Results & Data Results & Data Vital Signs (Past 12 Hours) Vital Signs Temp Pulse Pulse Pulse Resp BP Pulse Ox 03/26/23 08:22 36.8 C 102 H 24 145/95 H 95 03/26/23 07:26 84 03/26/23 04:00 36.6 C 71 20 122/69 100 03/26/23 00:00 81 03/26/23 00:00 36.6 C 61 20 109/71 96 O2 Del Method O2 Flow Rate 03/26/23 08:22 Nasal Cannula 3.5 03/26/23 07:26 03/26/23 04:00 Nasal Cannula 2 03/26/23 00:00 03/26/23 00:00 Nasal Cannula 2 Laboratory Results Abnormal lab results 03/25/23 03/26/23 03/26/23 Range/Units 15:50 07:10 07:10 MCHC 31.5 L (32.0-36.0) g/dL RDW Std Deviation 46.5 H (36.4-46.3) fL Potassium 3.2 L (3.5-5.1) mmol/L Chloride 110 H 110 H (98-107) mmol/L Glucose 115 H (70-99(Fasting)) mg/dl Calcium 8.1 L (8.6-10.3) mg/dl Phosphorus 2.4 L (2.5-4.9) mg/dl AST 65 H (13-39) U/L ALT 76 H (7-52) U/L
--- NOTE | 2023-03-26 10:10 | XRay Report ---
XR chest 2V PA/lateral CLINICAL HISTORY: Cough. COMPARISON STUDY: Chest radiograph February 02, 2023. FINDINGS: There is mild cardiomegaly. A small left pleural effusion present. There is no pneumothorax . Interstitial thickening is noted. There is patchy left midlung opacity. IMPRESSION: 1. Interstitial thickening consistent with pulmonary edema. Small left pleural effusion. 2. Patchy left midlung opacity. This may reflect alveolar edema. A superimposed infectious process co uld appear similar although is considered less likely. Radiographic follow-up is recommended. 3. Mild cardiomegaly. ACT 112: Negative or not required by law. Electronically signed by: Cristiano Wilcox M.D. 03/26/2023 10:08 AM
[2023-03-26] MEDS: POT PHOSPHATE MONOBASIC W/ SOD TAB PO ONE ×2 (10:25→10:27)
[2023-03-26] MEDS: DAPTOmycin 525 MG in SYRINGE 0 ML IV SCH (16:22)
[2023-03-27] MEDS: ACETAMINOPHEN 1,000 MG/100 ML VIAL IV PRN (03:22)
--- NOTE | 2023-03-27 04:59 | Electrocardiogram Report ---
Test Reason : Blood Pressure : / mmHG Vent. Rate : 112 BPM Atrial Rate : 112 BPM P-R Int : 136 ms QRS Dur : 086 ms QT Int : 294 ms P-R-T Axes : -05 061 -16 degrees QTc Int : 401 ms Sinus tachycardia Nonspecific T wave abnormality Abnormal ECG When compared with ECG of 02-FEB-2023 12:38, Vent. rate has increased BY 38 BPM Nonspecific T wave abnormality, worse in Inferior leads Nonspecific T wave abnormality now evident in Anterolateral leads Confirmed by Brenden Noland ([id number]) on 03/27/2023 4:59:16 AM Referred By: REFERRED SELF Confirmed By:Brenden Noland
[2023-03-27] MEDS: PIPERACILLIN/TAZOBACTAM 4.5 GM in DEXTROSE 5% 100 ML IV SCH (05:46)
[2023-03-27] MEDS: ENOXAPARIN INJ 40 MG/0.4 ML SYR SQ SCH ×2 (09:50→20:54)
[2023-03-27 10:26] LABS: Hematocrit (blood only) 33.6 % (37.0-47.0); Hemoglobin 11.1 g/dl (12.0-16.0); Mean Corpuscular Hemoglobin 28.2 pg (25.0-34.0); Mean Corpuscular Volume 85.3 fL (80.0-100.0); Platelet Count 172 K/uL (130-400); RDW Standard Deviation 43.8 fL (36.4-46.3); Red Blood Count 3.94 M/uL (4.20-5.40); White Blood Count 5.78 K/ul (4.8-10.8)
[2023-03-27] MEDS: cefTRIAXone SODIUM 2,000 MG in DEXTROSE 5% 50 ML IV SCH (10:35)
[2023-03-27 10:42] LABS: Albumin Globulin Ratio 1.2 (0.9-2); Albumin Level 3.3 gm/dl (3.4-5.0); BUN Creatinine Ratio 11.4 (10-20); Bilirubin,Total 0.4 mg/dl (0.2-1.0); Calcium 8.8 mg/dl (8.6-10.3); Creatinine Clr Calc Pharmacy 107.3 ml/min; Est GFR (African American) 95.6 ml/min; Est GFR (Non-African American) 82.5 ml/min; Globulin 2.8 gm/dl (2.5-4.0); Phosphorus 1.7 mg/dl (2.5-4.9); Potassium 3.6 mmol/L (3.5-5.1); Total Protein 6.1 gm/dl (6.0-8.3)
--- NOTE | 2023-03-27 12:24 | Hospitalist Progress Note ---
Date of Service March 27, 2023 Assessment & Plan (1) Sepsis: (2) Hypokalemia: (3) Cellulitis of right lower extremity: Plan: Patient presented from home with reports of right foot wound and RLE pain. 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 Met sepsis criteria on presentation --temp 38.4, tachycardic, WBC 14.6 K. Lactate 2.0, BP stable. Reported full tetanus vaccination and last dose is [address] right foot and RLE negative for foreign body, abscess, and signs of osteomyelitis. Blood culture on 03/24/23 growing Group G beta strep Repeat blood culture 03/25/23 was initially reported as strep sp but revised to bacillus sp not anthracis. Repeat blood culture 03/26/23 negative so far TTE did not show any vegetation or valvular abnormalities Was initially on daptomycin and zosyn, now changed to ceftriaxone Considering clinical improvement, will continue this for now until ID eval Continue tylenol prn fevers, antiemetic prn Follow up blood cultures/sensitivities Hypophosphatemia. Replete and monitor K is 3.6 today (4) Prediabetes: Plan: Hgb A1c 5.6 07/2022 HbA1c is 5.6 this admission (5) Obesity, morbid, BMI 50 or higher: Plan: Patient previously on Wegovy however states that she has not been able to get it refilled DVT PROPHYLAXIS SQ Lovenox I spent a total of 45 minutes coordinating, documenting and providing care for this patient excluding time spent in performance of separately billed services Admission and Anticipated Discharge Date Admission Date: March 24, 2023 Subjective Patient seen and examined Reports feeling better today. Reports right leg pain is improving Reported last time she had chills was yesterday. Last fever was night of 03/25/23 Reports nausea is improving. No vomiting today Denied abd pain, dysuria, freq, urgency Physical Exam Constitutional: + well hydrated and + obese; no acute distress Eyes: PERRL, conjunctivae normal, anicteric sclerae ENMT: external ear and nose normal, oropharynx normal Respiratory: normal respiratory effort, lungs clear to auscultation Cardiovascular: Rate/Rhythm: regular rate and regular rhythm S1 S2 Gastrointestinal (Abdomen): normal bowel sounds, soft, nontender, no hepatosplenomegaly Musculoskeletal: Erythema over right lower leg improving. Tenderness over small scab on plantar surface of foot Neurologic: PERRL, EOMI, accommodation nl, no face palsy, no dysarthria Psychiatric: A+Ox3, euthymic affect Results & Data Results & Data Vital Signs (Past 12 Hours) Vital Signs Temp Pulse Pulse Resp BP BP Pulse Ox 03/27/23 11:10 36.7 C 87 18 159/86 H 96 03/27/23 07:00 84 03/27/23 08:10 36.8 C 92 H 18 143/82 H 93 03/27/23 03:14 37.2 C 96 H 20 142/88 H 92 O2 Del Method 03/27/23 11:10 Room Air 03/27/23 07:00 03/27/23 08:10 Room Air 03/27/23 03:14 Room Air Laboratory Results Abnormal lab results 03/27/23 03/27/23 03/27/23 Range/Units 10:01 10:01 10:01 RBC 3.94 L (4.20-5.40) M/uL Hgb 11.1 L (12.0-16.0) g/dl Hct 33.6 L (37.0-47.0) % Chloride 110 H (98-107) mmol/L Glucose 131 H (70-99(Fasting)) mg/dl Phosphorus 1.7 L (2.5-4.9) mg/dl Total Creatine Kinase 245 H (26-192) U/L Albumin 3.3 L (3.4-5.0) gm/dl Procalcitonin 3.18 H (0-0.5) ng/ml
[2023-03-27] MEDS ORDERED: POTASSIUM PHOS 3 MMOL/1 ML INFUSION IV STA (13:01)
[2023-03-27] MEDS ORDERED: POTASSIUM PHOSPHATE 21 MMOL in SODIUM CHLORIDE 0.9% 500 ML IV ONE (13:30)
[2023-03-27] MEDS: POT PHOSPHATE MONOBASIC W/ SOD TAB PO SCH ×3 (15:39→20:49)
[2023-03-27] MEDS: ACETAMINOPHEN SUSP 325 MG/10.15 ML UDC PO PRN (20:54)
[2023-03-28 07:00] LABS: BUN Creatinine Ratio 15.6 (10-20); Calcium 8.6 mg/dl (8.6-10.3); Creatinine Clr Calc Pharmacy 113.1 ml/min; Est GFR (African American) 98.6 ml/min; Est GFR (Non-African American) 85.1 ml/min; Phosphorus 3.4 mg/dl (2.5-4.9); Potassium 3.9 mmol/L (3.5-5.1)
[2023-03-28 07:05] LABS: Hematocrit (blood only) 32.5 % (37.0-47.0); Hemoglobin 10.6 g/dl (12.0-16.0); Mean Corpuscular Hemoglobin 27.7 pg (25.0-34.0); Mean Corpuscular Hgb Conc 32.6 g/dL (32.0-36.0); Mean Corpuscular Volume 85.1 fL (80.0-100.0); Mean Platelet Volume 10.4 fL (9.4-12.4); Platelet Count 181 K/uL (130-400); RDW Coefficient of Variation 14.2 % (11.5-14.5); RDW Standard Deviation 44.2 fL (36.4-46.3); Red Blood Count 3.82 M/uL (4.20-5.40); White Blood Count 3.89 K/ul (4.8-10.8)
[2023-03-28] MEDS: ENOXAPARIN INJ 40 MG/0.4 ML SYR SQ SCH ×2 (08:59→20:10)
[2023-03-28] MEDS: POT PHOSPHATE MONOBASIC W/ SOD TAB PO SCH ×4 (09:00→20:10)
--- NOTE | 2023-03-28 09:04 | Hospitalist Progress Note ---
Date of Service March 28, 2023 Assessment & Plan (1) Sepsis: (2) Hypokalemia: (3) Cellulitis of right lower extremity: Plan: Patient presented from home with reports of right foot wound and RLE pain. 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 Met sepsis criteria on presentation --temp 38.4, tachycardic, WBC 14.6 K. Lactate 2.0, BP stable. Reported full tetanus vaccination and last dose is [address] right foot and RLE negative for foreign body, abscess, and signs of osteomyelitis. Blood culture on 03/24/23 growing Group G beta strep Repeat blood culture 03/25/23 was initially reported as strep sp but revised to bacillus sp not anthracis. Repeat blood culture 03/26/23 negative so far TTE did not show any vegetation or valvular abnormalities Was initially on daptomycin and zosyn, now changed to ceftriaxone Continue IV ceftriaxone Awaiting ID eval Continue tylenol prn fevers, antiemetic prn Follow up blood cultures/sensitivities K and phos normal today (4) Prediabetes: Plan: Hgb A1c 5.6 07/2022 HbA1c is 5.6 this admission (5) Obesity, morbid, BMI 50 or higher: Plan: Patient previously on Wegovy however states that she has not been able to get it refilled DVT PROPHYLAXIS SQ Lovenox I spent a total of 40 minutes coordinating, documenting and providing care for this patient excluding time spent in performance of separately billed services Admission and Anticipated Discharge Date Admission Date: March 24, 2023 Subjective Patient seen and examined Reports feeling better each day Reported she had chills yesterday Reports right leg pain is improving Fever and nausea have resolved Denied abd pain, constipation, diarrhea, dysuria, freq, urgency Physical Exam Constitutional: + well hydrated and + obese; no acute distress Eyes: PERRL, conjunctivae normal, anicteric sclerae ENMT: external ear and nose normal, oropharynx normal Respiratory: normal respiratory effort, lungs clear to auscultation Cardiovascular: Rate/Rhythm: regular rate and regular rhythm S1 S2 Gastrointestinal (Abdomen): normal bowel sounds, soft, nontender, no hep atosplenomegaly Musculoskeletal: Erythema over right lower leg improving. Tenderness over small scab on plantar surface of foot Neurologic: PERRL, EOMI, accommodation nl, no face palsy, no dysarthria Psychiatric: A+Ox3, euthymic affect Results & Data Results & Data Vital Signs (Past 12 Hours) Vital Signs Temp Pulse Pulse Resp BP BP Pulse Ox 03/28/23 08:02 36.8 C 81 18 127/74 93 03/28/23 03:07 36.4 C L 87 16 115/61 94 03/28/23 00:13 87 03/27/23 23:20 36.7 C 80 18 132/84 94 O2 Del Method 03/28/23 08:02 Room Air 03/28/23 03:07 Room Air 03/28/23 00:13 03/27/23 23:20 Room Air Laboratory Results Abnormal lab results 03/28/23 03/28/23 03/28/23 Range/Units 06:07 06:07 06:07 WBC 3.89 L (4.8-10.8) K/ul RBC 3.82 L (4.20-5.40) M/uL Hgb 10.6 L (12.0-16.0) g/dl Hct 32.5 L (37.0-47.0) % Chloride 110 H (98-107) mmol/L Procalcitonin 2.15 H (0-0.5) ng/ml
[2023-03-28] MEDS: cefTRIAXone SODIUM 2,000 MG in DEXTROSE 5% 50 ML IV SCH (09:07)
[2023-03-29] MEDS: ACETAMINOPHEN SUSP 325 MG/10.15 ML UDC PO PRN (05:57)
[2023-03-29 07:17] LABS: Hematocrit (blood only) 33.5 % (37.0-47.0); Hemoglobin 11.1 g/dl (12.0-16.0); Mean Corpuscular Hemoglobin 28.1 pg (25.0-34.0); Mean Corpuscular Hgb Conc 33.1 g/dL (32.0-36.0); Mean Corpuscular Volume 84.8 fL (80.0-100.0); Mean Platelet Volume 9.8 fL (9.4-12.4); Platelet Count 194 K/uL (130-400); RDW Coefficient of Variation 13.9 % (11.5-14.5); RDW Standard Deviation 43.3 fL (36.4-46.3); Red Blood Count 3.95 M/uL (4.20-5.40); White Blood Count 4.32 K/ul (4.8-10.8)
[2023-03-29 07:30] LABS: BUN Creatinine Ratio 15.1 (10-20); Calcium 8.7 mg/dl (8.6-10.3); Creatinine Clr Calc Pharmacy 116.8 ml/min; Est GFR (African American) 105.2 ml/min; Est GFR (Non-African American) 90.8 ml/min; Phosphorus 4.3 mg/dl (2.5-4.9)
[2023-03-29] MEDS: ENOXAPARIN INJ 40 MG/0.4 ML SYR SQ SCH ×2 (08:41→20:13)
[2023-03-29] MEDS: POT PHOSPHATE MONOBASIC W/ SOD TAB PO SCH ×4 (08:41→20:13)
--- NOTE | 2023-03-29 10:25 | Hospitalist Progress Note ---
Date of Service March 29, 2023 Assessment & Plan (1) Sepsis: (2) Hypokalemia: (3) Cellulitis of right lower extremity: Plan: Patient presented from home with reports of right foot wound and RLE pain. 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 Met sepsis criteria on presentation --temp 38.4, tachycardic, WBC 14.6 K. Lactate 2.0, BP stable. Reported full tetanus vaccination and last dose is [address] right foot and RLE negative for foreign body, abscess, and signs of osteomyelitis. Blood culture on 03/24/23 growing Group G beta strep Repeat blood culture 03/25/23 was initially reported as strep sp but revised to bacillus sp not anthracis. Repeat blood culture 03/26/23 negative so far TTE did not show any vegetation or valvular abnormalities Was initially on daptomycin and zosyn, now changed to ceftriaxone Continue IV ceftriaxone Awaiting ID eval Continue tylenol prn fevers, antiemetic prn Follow up blood cultures/sensitivities (4) Prediabetes: Plan: Hgb A1c 5.6 07/2022 HbA1c is 5.6 this admission (5) Obesity, morbid, BMI 50 or higher: Plan: Patient previously on Wegovy however states that she has not been able to get it refilled DVT PROPHYLAXIS SQ Lovenox I spent a total of 35 minutes coordinating, documenting and providing care for this patient excluding time spent in performance of separately billed services Admission and Anticipated Discharge Date Admission Date: March 24, 2023 Subjective Patient seen and examined Reports chills have resolved Reports right foot pain is improving Right leg erythema significantly improved Denied abd pain, constipation, diarrhea, dysuria, freq, urgency Physical Exam Constitutional: + well hydrated and + obese; no acute distress Eyes: PERRL, conjunctivae normal, anicteric sclerae ENMT: external ear and nose normal, oropharynx normal Respiratory: normal respiratory effort, lungs clear to auscultation Cardiovascular: Rate/Rhythm: regular rate and regular rhythm S1 S2 Gastrointestinal (Abdomen): normal bowel sounds, soft, nontender, no hepatosplenomegaly Musculoskeletal: Erythema over right lower leg remarkably improved. Tenderness over small scab on plantar surface of foot also improved Neurologic: PERRL, EOMI, accommodation nl, no face palsy, no dysarthria Psychiatric: A+Ox3, euthymic affect Results & Data Results & Data Vital Signs (Past 12 Hours) Vital Signs Temp Pulse Pulse Resp BP BP Pulse Ox 03/29/23 07:20 36.6 C 79 18 166/78 H 94 03/29/23 06:59 57 L 03/29/23 03:00 37 C 72 20 143/85 H 93 03/29/23 00:42 84 03/28/23 22:42 36.6 C 74 18 154/89 H 95 O2 Del Method 03/29/23 07:20 Room Air 03/29/23 06:59 03/29/23 03:00 Room Air 03/29/23 00:42 03/28/23 22:42 Room Air Laboratory Results Abnormal lab results 03/29/23 03/29/23 Range/Units 06:56 06:56 WBC 4.32 L (4.8-10.8) K/ul RBC 3.95 L (4.20-5.40) M/uL Hgb 11.1 L (12.0-16.0) g/dl Hct 33.5 L (37.0-47.0) % Chloride 109 H (98-107) mmol/L Glucose 108 H (70-99(Fasting)) mg/dl
[2023-03-29] MEDS: cefTRIAXone SODIUM 2,000 MG in DEXTROSE 5% 50 ML IV SCH (10:33)
[2023-03-30 06:59] LABS: Hematocrit (blood only) 36.6 % (37.0-47.0); Hemoglobin 11.8 g/dl (12.0-16.0); Mean Corpuscular Hemoglobin 28.2 pg (25.0-34.0); Mean Corpuscular Hgb Conc 32.2 g/dL (32.0-36.0); Mean Corpuscular Volume 87.6 fL (80.0-100.0); Mean Platelet Volume 9.9 fL (9.4-12.4); Platelet Count 236 K/uL (130-400); RDW Standard Deviation 45.1 fL (36.4-46.3); Red Blood Count 4.18 M/uL (4.20-5.40); White Blood Count 5.62 K/ul (4.8-10.8)
[2023-03-30 07:18] LABS: BUN Creatinine Ratio 16.1 (10-20); Calcium 8.9 mg/dl (8.6-10.3); Creatinine Clr Calc Pharmacy 97.2 ml/min; Est GFR (African American) 85.1 ml/min; Est GFR (Non-African American) 73.4 ml/min; Magnesium 2.1 mg/dl (1.7-2.4); Phosphorus 4.1 mg/dl (2.5-4.9); Potassium 4.1 mmol/L (3.5-5.1)
[2023-03-30] MEDS: POT PHOSPHATE MONOBASIC W/ SOD TAB PO SCH ×3 (08:57→16:08)
[2023-03-30] MEDS: ENOXAPARIN INJ 40 MG/0.4 ML SYR SQ SCH (08:57)
[2023-03-30] MEDS: cefTRIAXone SODIUM 2,000 MG in DEXTROSE 5% 50 ML IV SCH (10:04)
--- NOTE | 2023-03-30 13:55 | Discharge Summary ---
Date of Service March 30, 2023 Admission HPI Per Admitting Provider 58-year-old female with PMH prediabetes, obesity, osteoarthritis, fibromyalgia, meningioma, depression, RAO, and other problems listed below who presents to the ED for evaluation of right foot wound. History obtained from the patient and review of outpatient PCP records. 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 Patient states that today she developed increased pain in the right foot as well as swelling to the right lower extremity. Patient reports chills, nausea, vomiting. She then presented to the ED for further evaluation. While in the ED, RLE became erythematous. Patient denies chest pain or shortness of breath. She reports some mild lightheadedness and dizziness with standing however no syncopal event. Denies abdominal pain and diarrhea. No urinary symptoms. In the ED, patient was febrile at 38.4, tachycardic, WBC [address] right foot and RLE negative for abscess and osteomyelitis. Patient was given IV Dapto, IV Zosyn, IVF. Admission Exam Per Admitting Provider Constitutional: WD/WN, vitals as above + obese; no acute distress Eyes: PERRL, conjunctivae normal, anicteric sclerae ENMT: external ear and nose normal, oropharynx normal Respiratory: normal respiratory effort, lungs clear to auscultation Cardiovascular: Rate/Rhythm: regular rhythm and + tachycardic Vessels: normal peripheral pulses Gastrointestinal (Abdomen): normal bowel sounds, soft, nontender, no hepatosplenomegaly Musculoskeletal: no cyanosis or clubbing, extremities motor strength 5/5 Skin: no rashes, warm and dry Small laceration noted to the plantar aspect of the right foot, no drainage noted. RLE L erythematous from the knee to the ankle, warm to touch Neurologic: PERRL, EOMI, accommodation nl, no face palsy, no dysarthria Psychiatric: A+Ox3, euthymic affect Principal Diagnosis Sepsis Right leg cellulitis Bacteremia Discharge Exam Constitutional + well hydrated and + obese; no acute distress Eyes PERRL, conjunctivae normal, anicteric sclerae ENMT external ear and nose normal, oropharynx normal Respiratory normal respiratory effort, lungs clear to auscultation Cardiovascular Rate/Rhythm: regular rate, regular rhythm and + tachycardic Gastrointestinal (Abdomen) normal bowel sounds, soft, nontender, no hepatosplenomegaly Musculoskeletal Right leg erythema almost resolved Right plantar wound improved, minimal tenderness Neurologic PERRL, EOMI, accommodation nl, no face palsy, no dysarthria Psychiatric A+Ox3, euthymic affect Discharge Data Allergies Allergy/AdvReac Type Severity Reaction Status Date / Time No Known Allergies Allergy Verified 03/24/23 17:47 Consultations 03/24/23 18:32 ED Decision to Admit Stat 03/27/23 07:38 Consult Infectious Diseases Routine Ordered Studies 03/24/23 15:56 CT foot RT w con Stat CT leg [CT tib/fib RT w con] Stat 03/24/23 23:09 CT head/brain wo con Stat Hospital Course (1) Sepsis: (2) Hypokalemia: (3) Cellulitis of right lower extremity: Patient presented from home with reports of right foot wound and RLE pain. 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 Met sepsis criteria on presentation --temp 38.4, tachycardic, WBC 14.6 K. Lactate 2.0, BP stable. Reported full tetanus vaccination and last dose is [address] right foot and RLE negative for foreign body, abscess, and signs of osteomyelitis. Blood culture on 03/24/23 growing Group G beta strep Repeat blood culture 03/25/23 was initially reported as strep sp but revised to bacillus sp not anthracis. Repeat blood culture 03/26/23 negative so far TTE did not show any vegetation or valvular abnormalities Was initially on daptomycin and zosyn, then changed to ceftriaxone Fever and leukocytosis resolved Cellulitis has marked improvement I discussed with ID Dr Bonilla today. He recommends continuing IV antibiotics to complete 2 weeks from negative culture. He recommended unasyn if going to a facility or ceftriaxone if daily dosing is needed. He recommends PCP to follow up at time of completion to determine clinical resolution and need for po antibiotics such as augmentin for longer period if needed CM arranged daily ceftriaxone at [facility] until 04/08/23. To get weekly CBC/BMP while on IV antibiotics Patient has PCP appt on 04/08/23 for follow up (4) Prediabetes: Hgb A1c 5.6 07/2022 HbA1c is 5.6 this admission (5) Obesity, morbid, BMI 50 or higher: Patient previously on Wegovy however states that she has not been able to get it refilled Total Time Total Time Spent Total Time Spent (In Minutes): 50 Total Time Includes: Examination of the Patient, Discharge Planning, Medication Reconciliation and Communication With Other Providers Discharge Plan Discharge Items Patient Disposition: Home - Self-Care Reason For Visit: RIGHT FOOT WOUND WITH CELLULITIS Discharge Diagnosis: Sepsis Right leg cellulitis Bacteremia Activity: Resume your previous activity Non-emergency contact: Primary Care Provider Call non-emergency contact if: you have any medication questions and your symptoms worsen Follow-up/Referrals: Bruna Godoy, [Primary Care Provider] - (Date & Time 04/08/2023 10:20 AM Provider Jessica Sheppard DO [facility], [place] ) Diet: Low Fat Addtl Attending Provider Instructions: Mrs Vázquez You came to the hospital complaining of right foot wound, chills and feeling unwell. You were evaluated and managed for Sepsis, right leg cellulitis. Your test also showed bacteria in blood. You were treated with IV antibiotics. You are being discharged on IV ceftriaxone daily at [facility] infusion center until 04/08/23. Please ensure follow up with Primary Doctor on 04/08/23 appointment day and he will review to determine if you need further oral antibiotics after the IV. Please check lab tests (BMP and CBC) weekly while on injection antibiotics. It was a pleasure taking care of you. Pending Studies at Discharge: No Stand-Alone Forms: My [facility], Smoking Cessation Medications and DC Order Prescriptions: No Action No Known Home Medications Discharge Orders: Discharge Order (Routine); Ordered 03/30/23 Ordered By: Kelle Lopez Admission Data Admit Date/Time: 03/24/23 19:07 Attending Provider: Kelle Lopez I. Admit Provider: Chucky Freeman Primary Care Provider: Bruna Godoy Other Providers: Chucky Freeman ; Anjum Hyatt ; Juan Antonio Cuenca ; Arvin Palacios I. ; Almas Storm II ; Erika Krueger ; Arik Navarrete ; Laith Bonilla ; Mag Turner Other Interventions: Discharge Summary Assessment (RN) Last Done: 03/30/23 14:09
== END 2023-03-30 18:56 | disposition home or self-care (01) | DRG 872 ==
LOC: ED 15:39 → 2N 19:07 → SUATTDRO 19:07 → 2N 20:52